=== PATIENT | female | born 1935 | race Two or more races ===

== ENCOUNTER 2020-03-06 15:01 | Inpatient (IN) | payer MEDICARE, MEDICAID ==
[~2020-03-06] VITALS: Ht 165.1 cm; Wt 68.0 kg
[2020-03-06 16:00] VITALS: BP 129/81
[2020-03-06] MEDS ORDERED: Q SORB CO Q PO (16:27)
[2020-03-06] MEDS ORDERED: CRESTOR20 MG ORAL (16:27)
[2020-03-06] MEDS ORDERED: ZESTRIL10 M1 ORAL (16:27)
[2020-03-06] MEDS ORDERED: DILTIAZEM ER180 M3 PO (16:27)
[2020-03-06] MEDS ORDERED: [UNRECOGNIZED DRUG - OTHER] PO (16:27)
[2020-03-06] MEDS ORDERED: OYSTER SHELL 51 EAC3 PO (16:27)
[2020-03-06] MEDS ORDERED: VITAMIN D325 MC1 PO (16:27)
[2020-03-06 16:45] LABS: BASOPHILS % (AUTO) 0.3 % (0.0-2.0); EOSINOPHILS % (AUTO) 0.5 % (0.0-3.0); HEMATOCRIT 41.4 % (37.0-47.0); HEMOGLOBIN 14.9 G/DL (12.0-16.0); LYMPHOCYTES % (AUTO) 18.7 % (20.0-45.0); MEAN CORPUSCULAR VOLUME 75 FL (80-99); MONOCYTES % (AUTO) 9.1 % (1.0-10.0); NEUTROPHILS % (AUTO) 71.4 % (45.0-75.0); PLATELET COUNT 374 K/UL (150-450); RED BLOOD COUNT 5.52 M/UL (4.20-5.40); RED CELL DISTRIBUTION WIDTH 14.1 % (11.6-14.8); WHITE BLOOD COUNT 9.4 K/UL (4.8-10.8)
[2020-03-06 16:47] LABS: CALCIUM 8.9 MG/DL (8.5-10.1); POTASSIUM 3.7 MMOL/L (3.5-5.1)
[2020-03-06 17:00] LABS: ALBUMIN 2.5 G/DL (3.4-5.0); ALBUMIN/GLOBULIN RATIO 0.5 (1.0-2.7); CKMB 1.2 NG/ML (0.0-3.6); PHOSPHORUS 3.2 MG/DL (2.5-4.9)
[2020-03-06] MEDS ORDERED: dexAMETHasone 10mg/ml Inj IV ONE (17:00)
--- NOTE | 2020-03-06 17:03 | Diagnostic Imaging Report ---
Indication: Shortness of breath Technique: XRAY Chest 1v Comparison: None Findings: There is interstitial infiltrates with a peripheral distribution. Heart size is in the upper limits normal. Mediastinal contours are sharp. No pleural effusion or pneumothorax. No acute osseous abnormality. Impression: Peripherally distributed interstitial infiltrates. Findings are concerning for multifocal pneumonia, particularly viral pneumonia.
[2020-03-06 17:25] LABS: APPEARANCE,URINE SLIGHTLY CLOUDY; BILIRUBIN, URINE 1+ (NEGATIVE); GLUCOSE, URINE (UA) NEGATIVE (NEGATIVE); KETONES,URINE 1+ (NEGATIVE); LEUKOCYTE ESTERASE ,URINE 1+ (NEGATIVE); NITRITE,URINE NEGATIVE (NEGATIVE); PH,URINE 7 (4.5-8.0); PROTEIN,URINE 3+ (NEGATIVE); UROBILINOGEN,URINE 4 MG/DL (0.0-1.0)
[2020-03-06 17:29] LABS: COLOR,URINE YELLOW
[2020-03-06 17:58] VITALS: BP 133/77
[2020-03-06] MEDS ORDERED: Albuterol 90mcg Inhaler 8gm INH PRN (21:30)
--- NOTE | 2020-03-06 21:35 | History & Physical ---
History of Present Illness General Reason for Hospitalization: Dyspnea/Respdistress Present Illness HPI 84 yo F with hx of dementia AOX1, HTN, who transferred to [facility] for worsenign SOB, dyspnea per chart review pt is baseline AOx2, linving at SNF. Pt desat to low 80s at outside facility, no report of fever Allergies: Coded Allergies: PENICILLINS (Verified Allergy, Unknown, 03/06/20) COVID-19 Screening Contact w/high risk pt: Yes Recent Travel to affected area: Yes Experienced COVID-19 symptoms?: Yes Coronavirus symptoms experienc: Shortness of Breath Medication History Scheduled Cholecalciferol (Vitamin D3) (Vitamin D3*), 25 MCG PO DAILY, (Reported) Lisinopril* (Zestril*), 10 MG ORAL DAILY, (Reported) Rosuvastatin Calcium* (Crestor*), 20 MG ORAL DAILY, (Reported) Miscellaneous Medications Calcium Carbonate/Vitamin D3 (Oyster Shell 500Mg-Vit D3 5Mcg), 1 EACH PO, (Reported) Diltiazem HCl (Diltiazem ER), 180 MG PO, (Reported) Ubidecarenone (Q-Sorb Co Q-10), 150 MG PO, (Reported) [Zolfen], 20 MG PO, (Reported) Patient History Healthcare decision maker Resuscitation status Advanced Directive on File Review of Systems Review of Symptoms General ROS: no weight loss or fever Psychological ROS: no depression or mood changes, no memory loss Ophthalmic ROS: no visual changes or eye irritation ENT ROS: no nasal congestion, hearing loss, dizziness Allergy and Immunology ROS: no allergic symptoms or urticaria Hematological and Lymphatic ROS: no swollen glands, unusual bleeding or bruising Endocrine ROS: no polyuria, polydipsia, weight changes, temperature intolerance Respiratory ROS: no cough, shortness of breath, or wheezing Cardiovascular ROS: no chest pain or dyspnea on exertion Gastrointestinal ROS: denies abdominal pain, bright red blood in stool. Musculoskeletal ROS: no myalgias or arthralgias Neurological ROS: no TIA or stroke symptoms Dermatological ROS: no new or changing skin lesions, rashes or pruritis Physical Exam Physical Exam General appearance: alert, cooperative, mild respiratory distress, appears stated age Head: Normocephalic, without obvious abnormality, atraumatic Eyes: conjunctivae/corneas clear. PERRL, EOM's intact. Fundi benign Throat: Lips, mucosa, and tongue normal. Teeth and gums normal Neck: supple, symmetrical, trachea midline, no adenopathy, thyroid: not enlarged, symmetric, no tenderness/mass/nodules, no carotid bruit and no JVD Lungs: clear to auscultation bilaterally Heart: regular rate and rhythm, S1, S2 normal, no murmur, click, rub or gallop Abdomen: soft, non-tender. Bowel sounds normal. No masses, no organomegaly Extremities: extremities normal, atraumatic, no cyanosis or edema Pulses: 2+ and symmetric Skin: Skin color, texture, turgor normal. No rashes or lesions Neurologic: Grossly normal Last 24 Hour Vital Signs Date Time Temp Pulse Resp B/P (MAP) Pulse Ox O2 Delivery O2 Flow Rate FiO2 03/06/20 17:58 98.6 99 18 133/77 96 Nasal Cannula 3.0 03/06/20 16:00 98.1 103 18 129/81 97 Nasal Cannula 3.0 03/06/20 16:00 103 18 Nasal Cannula 6.0 03/06/20 14:50 98.4 100 16 126/86 (99) 93 Nasal Cannula 6.0 Laboratory Tests Test 03/06/20 15:45 03/06/20 17:00 White Blood Count 9.4 K/UL (4.8-10.8) Red Blood Count 5.52 M/UL (4.20-5.40) H Hemoglobin 14.9 G/DL (12.0-16.0) Hematocrit 41.4 % (37.0-47.0) Mean Corpuscular Volume 75 FL (80-99) L Mean Corpuscular Hemoglobin 27.0 PG (27.0-31.0) Mean Corpuscular Hemoglobin Concent 36.0 G/DL (32.0-36.0) Red Cell Distribution Width 14.1 % (11.6-14.8) Platelet Count 374 K/UL (150-450) Mean Platelet Volume 6.6 FL (6.5-10.1) Neutrophils (%) (Auto) 71.4 % (45.0-75.0) Lymphocytes (%) (Auto) 18.7 % (20.0-45.0) L Monocytes (%) (Auto) 9.1 % (1.0-10.0) Eosinophils (%) (Auto) 0.5 % (0.0-3.0) Basophils (%) (Auto) 0.3 % (0.0-2.0) Prothrombin Time 11.0 SEC (9.30-11.50) Prothromb Time International Ratio 1.0 (0.9-1.1) Activated Partial Thromboplast Time 29 SEC (23-33) Sodium Level 139 MMOL/L (136-145) Potassium Level 3.7 MMOL/L (3.5-5.1) Chloride Level 108 MMOL/L (98-107) H Carbon Dioxide Level 21 MMOL/L (21-32) Anion Gap 10 mmol/L (5-15) Blood Urea Nitrogen 19 mg/dL (7-18) H Creatinine 1.0 MG/DL (0.55-1.30) Estimat Glomerular Filtration Rate 52.8 mL/min (>60) Glucose Level 120 MG/DL (74-106) H Lactic Acid Level 1.80 mmol/L (0.4-2.0) Calcium Level 8.9 MG/DL (8.5-10.1) Phosphorus Level 3.2 MG/DL (2.5-4.9) Magnesium Level 2.1 MG/DL (1.8-2.4) Total Bilirubin 1.0 MG/DL (0.2-1.0) Aspartate Amino Transf (AST/SGOT) 69 U/L (15-37) H Alanine Aminotransferase (ALT/SGPT) 48 U/L (12-78) Alkaline Phosphatase 100 U/L (46-116) Total Creatine Kinase 60 U/L (26-308) Creatine Kinase MB 1.2 NG/ML (0.0-3.6) Creatine Kinase MB Relative Index 2.0 Troponin I 0.008 ng/mL (0.000-0.056) Total Protein 7.5 G/DL (6.4-8.2) Albumin 2.5 G/DL (3.4-5.0) L Globulin 5.0 g/dL Albumin/Globulin Ratio 0.5 (1.0-2.7) L Urine Color Yellow Urine Appearance Slightly cloudy Urine pH 7 (4.5-8.0) Urine Specific [place] 1.010 (1.005-1.035) Urine Protein 3+ (NEGATIVE) H Urine Glucose (UA) Negative (NEGATIVE) Urine Ketones 1+ (NEGATIVE) H Urine Blood 2+ (NEGATIVE) H Urine Nitrite Negative (NEGATIVE) Urine Bilirubin 1+ (NEGATIVE) H Urine Ictotest Positive (NEGATIVE) Urine Urobilinogen 4 MG/DL (0.0-1.0) H Urine Leukocyte Esterase 1+ (NEGATIVE) H Urine RBC 2-4 /HPF (0 - 2) H Urine WBC 5-10 /HPF (0 - 2) H Urine Squamous Epithelial Cells Few /LPF (NONE/OCC) Urine Bacteria Few /HPF (NONE) Urine Mucus Few /LPF (NONE/OCC) H Microbiology Date/Time Source Procedure Growth Status 03/06/20 15:45 Nasopharynx SARS-CoV-2 RdRp Gene Assay - Final Complete Height (Feet): 5 Height (Inches): 5.00 Weight (Pounds): 150 Assessment/Plan Status: stable, progressing Assessment/Plan: 84 yo F with PMHx of vit D defi, dementia, SNF, who is admitted for Dyspnea 2/2 covid PNA # Acute hypoxemia Resp failure 2/2 covid pna requiring NC # Covid pna # Transaminiti - start NC therap - decadron 6mg iv q24 - zinc - procal to r/o bacterial pna - hold off abx -remdesivir - pulm jeanetteutPj fontenot appreciate recs # Dementia # SNF - stable '- home vitamin DVT lovenoox [facility] declaration X INPATIENT level of care is warranted for this patient because patient is a 89 year old with who presents with suspicion of . I have a high level of concern because . Patient is at high risk for . Plan of care/treatment include . Patient care is expected to be greater than 2 midnights. Estimated discharge date: 03/10 I spent 70 minutes on this patient's case, and 40 minutes was dedicated to counseling and/or care coordination. MIPS ([employer]-based Incentive Payment System) Applicable CPT: 80831, 06175 CHECK ALL THAT ARE MET: X Measure #5 (CHF): All ages. Prescribe CARIE/ARB upon discharge for patients with left ventricular systolic dysfunction. If not, the reason is clearly documented in the medical chart. XMeasure #8 (CHF): All ages. Prescribe a beta more upon discharge for patients with left ventricular systolic dysfunction. If not, the reason is clearly documented in the medical chart. X Measure #47 Advance care plan or surrogate decision maker documented in the medical record. X Measure #130 The provider has documented, updated, or reviewed the patients current medication list and has documented it in the patients note. X Measure #374 (All): Send report to referring provider. X Measure #407(Sepsis due to MSSA bacteremia): Age 18+ Patient treated with a beta-lactam antibiotic (Nafcillin, Oxacillin or Cefazolin) as definitive therapy. MEDICAL COMPLEXITY High complexity medical decision making (need 2/3 categories) Problem - need 4 points X Acute/new problem with new plan for workup (4 points, 1 max) Acute/new problem without additional workup (3 points, 1 max) X Unstable chronic problem actively being managed (2 point each, 2 max) XStable chronic problem actively being managed (1 point each, 2 max) Self-limited/transient process (constipation, muscle ache, etc) (1 point each, 2 max) Data - need 4 points X Reviewed labs/imaging studies (1 points, 2 max) X Independent review of imaging (EKG, xrays, etc) (2 points, 2 max) Discussed case with consult/other MD/RN (2 points, 2 max) High Risk - qualify if have one of the following: X Severe exacerbation of acute problem, acute mental status change, IV narcotics, monitoring drug levels (vancomycin, INR, tacrolimus etc) Erica Paz D.O. Mar 06, 2020 21:35
--- NOTE | 2020-03-06 22:20 | Emergency Room Report ---
History of Present Illness General Chief Complaint: Dyspnea/Respdistress Source: Patient Present Illness HPI 84-year-old female history of dementia, hypertension, hyperlipidemia presents with acute shortness of breath that has been ongoing for the past few days concern for possible Covid severity is moderate, constant history is limited due to patient's medical condition and dementia patient presents for evaluation and treatment no known aggravating alleviating factors Allergies: Coded Allergies: PENICILLINS (Verified Allergy, Unknown, 03/06/20) COVID-19 Screening Contact w/high risk pt: No Experienced COVID-19 symptoms?: Yes COVID-19 Testing performed PRINTER MACHINE: No COVID-19 Screening: Negative COVID-19 Patient History Limited by: medical condition - Demented Past Medical History: see triage record Reviewed Nursing Documentation: PMH: Agreed; PSxH: Agreed Nursing Documentation-PMH Past Medical History: No History, Except For Hx Hypertension: Yes Hx Diabetes: Yes Review of Systems All Other Systems: limited - Dementia Physical Exam Vital Signs Date Time Temp Pulse Resp B/P (MAP) Pulse Ox O2 Delivery O2 Flow Rate FiO2 03/06/20 14:50 98.4 100 16 126/86 (99) 93 Nasal Cannula 6.0 Sp02 EP Interpretation: reviewed, abnormal - Hypoxic General Appearance: alert, moderate distress Head: normocephalic, atraumatic Eyes: bilateral eye PERRL, bilateral eye EOMI ENT: uvula midline, moist mucus membranes Neck: supple, thyroid normal, supple/symm/no masses Respiratory: respiratory distress, decreased breath sounds, accessory muscle use Cardiovascular #1: normal peripheral pulses, no edema, no gallop, no murmur, tachycardia Gastrointestinal: non tender, soft, no guarding, no rebound Musculoskeletal: normal inspection Neurologic: alert, responsive Psychiatric: mood/affect normal Skin: no rash, warm/dry Procedures Critical Care Time Critical Care Time Given the critical condition in which the patient arrived, the patient was immediately assessed by myself and the nurse, and cardiac monitoring initiated due to the potential for rapid decompensation of the patient's clinical condition. During the course of the patient's stay, I spent a considerable amount of time at the bedside performing serial re-evaluations of the patient's hemodynamic and clinical status because of the recognized potential threat to life or limb in this condition. I then had a chance to review not only all of the available current laboratory and radiographic studies obtained today, but I also reviewed old records available to me at the time. Additionally, any ancillary information available including lead business systems analyst records were reviewed. Sequential vital signs were obtained. Critical Care time of 31 minutes was performed exclusive of billable procedures. Patient required oxygenation 6 L, Decadron per primary team Medical Decision Making Diagnostic Impression: Primary Impression: Respiratory distress Additional Impressions: Dyspnea Qualified Codes: R06.00 - Dyspnea, unspecified COVID-19 Hypoxia ER Course 84-year-old female multiple comorbidities, altered mental status, presents with Covid, patient given oxygen therapy with significant improvement in her symptoms Decadron per primary team Patient admitted to Dr. Oliva Laboratory Tests Test 03/06/20 15:45 03/06/20 17:00 White Blood Count 9.4 K/UL (4.8-10.8) Red Blood Count 5.52 M/UL (4.20-5.40) H Hemoglobin 14.9 G/DL (12.0-16.0) Hematocrit 41.4 % (37.0-47.0) Mean Corpuscular Volume 75 FL (80-99) L Mean Corpuscular Hemoglobin 27.0 PG (27.0-31.0) Mean Corpuscular Hemoglobin Concent 36.0 G/DL (32.0-36.0) Red Cell Distribution Width 14.1 % (11.6-14.8) Platelet Count 374 K/UL (150-450) Mean Platelet Volume 6.6 FL (6.5-10.1) Neutrophils (%) (Auto) 71.4 % (45.0-75.0) Lymphocytes (%) (Auto) 18.7 % (20.0-45.0) L Monocytes (%) (Auto) 9.1 % (1.0-10.0) Eosinophils (%) (Auto) 0.5 % (0.0-3.0) Basophils (%) (Auto) 0.3 % (0.0-2.0) Prothrombin Time 11.0 SEC (9.30-11.50) Prothrombin Time INR 1.0 (0.9-1.1) Activated Partial Thromboplast Time 29 SEC (23-33) Sodium Level 139 MMOL/L (136-145) Potassium Level 3.7 MMOL/L (3.5-5.1) Chloride Level 108 MMOL/L (98-107) H Carbon Dioxide Level 21 MMOL/L (21-32) Anion Gap 10 mmol/L (5-15) Blood Urea Nitrogen 19 mg/dL (7-18) H Creatinine 1.0 MG/DL (0.55-1.30) Estimated Glomerular Filtration Rate 52.8 mL/min (>60) Glucose Level 120 MG/DL (74-106) H Lactic Acid Level 1.80 mmol/L (0.4-2.0) Calcium Level 8.9 MG/DL (8.5-10.1) Phosphorus Level 3.2 MG/DL (2.5-4.9) Magnesium Level 2.1 MG/DL (1.8-2.4) Total Bilirubin 1.0 MG/DL (0.2-1.0) Aspartate Amino Transferase (AST) 69 U/L (15-37) H Alanine Aminotransferase (ALT) 48 U/L (12-78) Alkaline Phosphatase 100 U/L (46-116) Total Creatine Kinase 60 U/L (26-308) Creatine Kinase MB 1.2 NG/ML (0.0-3.6) Creatine Kinase MB Relative Index 2.0 Troponin I 0.008 ng/mL (0.000-0.056) Total Protein 7.5 G/DL (6.4-8.2) Albumin 2.5 G/DL (3.4-5.0) L Globulin 5.0 g/dL Albumin/Globulin Ratio 0.5 (1.0-2.7) L Urine Color Yellow Urine Appearance Slightly cloudy Urine pH 7 (4.5-8.0) Urine Specific [place] 1.010 (1.005-1.035) Urine Protein 3+ (NEGATIVE) H Urine Glucose (UA) Negative (NEGATIVE) Urine Ketones 1+ (NEGATIVE) H Urine Blood 2+ (NEGATIVE) H Urine Nitrite Negative (NEGATIVE) Urine Bilirubin 1+ (NEGATIVE) H Urine Ictotest Positive (NEGATIVE) Urine Urobilinogen 4 MG/DL (0.0-1.0) H Urine Leukocyte Esterase 1+ (NEGATIVE) H Urine RBC 2-4 /HPF (0 - 2) H Urine WBC 5-10 /HPF (0 - 2) H Urine Squamous Epithelial Cells Few /LPF (NONE/OCC) Urine Bacteria Few /HPF (NONE) Urine Mucus Few /LPF (NONE/OCC) H Microbiology Date/Time Source Procedure Growth Status 03/06/20 15:45 Nasopharynx SARS-CoV-2 RdRp Gene Assay - Final Complete EKG Diagnostic Results Troponin ordered: No EKG Time: 16:37 EP Interpretation: Sinus tachycardia, rate 102, QTc 503, no acute elevations, normal axis Rhythm Strip Diag. Results Rhythm Strip Time: 16:40 EP Interpretation: yes Rate: 101 Rhythm: no PVC's, no ectopy, other - Sinus tachycardia Chest X-Ray Diagnostic Results Chest X-Ray Diagnostic Results : Chest X-Ray Ordered: Yes # of Views/Limited/Complete: 1 View Indication: Shortness of Breath Interpretation: other - Bilateral infiltrates, consistent with Covid pneumonia Impression: Other - Bilateral infiltrates, consistent with Covid pneumonia Electronically Signed by: Rob Baron MD Last Vital Signs Date Time Temp Pulse Resp B/P (MAP) Pulse Ox O2 Delivery O2 Flow Rate FiO2 03/06/20 22:04 98.2 72 19 135/69 96 Nasal Cannula 2.0 Disposition: ADMITTED INPATIENT Condition: Critical Referrals: [facility],REFERRING (PCP) Rob Baron MD Mar 06, 2020 22:20
[2020-03-06 22:25] VITALS: BP 141/79
[2020-03-06 23:43] VITALS: BP 136/82
[2020-03-06] MEDS: Enoxaparin 40mg Inj SUBQ SCH (23:50)
[2020-03-07 08:00] VITALS: BP 121/68
[2020-03-07 09:01] VITALS: BP 121/68
[2020-03-07] MEDS ORDERED: cefTRIAXone 1 GM in D5W 55 ML IVPB SCH (11:30)
[2020-03-07] MEDS ORDERED: Albuterol 90mcg Inhaler 8gm INH PRN (11:30)
--- NOTE | 2020-03-07 11:43 | Consultation ---
History of Present Illness General Date patient seen: Mar 07, 2020 Time patient seen: 10:30 Chief Complaint: Dyspnea/Respdistress Referring physician: Dr Bonilla Reason for Consultation: resp distress, COVID PNA Present Illness HPI 84 years old female with past medical history of hypertension, hyperlipidemia, dementia, presented from home with shortness of breath. Symptoms were ongoing for the past few days. Family was concerned for possible Covid infection. Upon evaluation in emergency department pulse oximetry on 6 L of oxygen via nasal cannula was 93%. Rapid COVID-19 was positive. Laboratory work-up revealed no leukocytosis , stable hemoglobin and hematocrit. BUN 19 , creatinine 1.0 , stable electrolytes. Lactic acid 1.8. AST 69, ALT 48. Troponin negative . No inflammatory markers were obtained . Urinalysis revealed +3 protein, +1 leukocyte esterase, pyuria and few bacteria. Chest x-ray demonstrated peripherally distributed interstitial infiltrates; findings were concerning for multifocal pneumonia , particularly viral pneumonia. Pulmonology consult was requested to assist in management this patient. Allergies: Coded Allergies: PENICILLINS (Verified Allergy, Unknown, 03/06/20) Medication History Scheduled Cholecalciferol (Vitamin D3) (Vitamin D3*), 25 MCG PO DAILY, (Reported) Lisinopril* (Zestril*), 10 MG ORAL DAILY, (Reported) Rosuvastatin Calcium* (Crestor*), 20 MG ORAL DAILY, (Reported) Miscellaneous Medications Calcium Carbonate/Vitamin D3 (Oyster Shell 500Mg-Vit D3 5Mcg), 1 EACH PO, (Reported) Diltiazem HCl (Diltiazem ER), 180 MG PO, (Reported) Ubidecarenone (Q-Sorb Co Q-10), 150 MG PO, (Reported) [Zolfen], 20 MG PO, (Reported) Patient History Healthcare decision maker Resuscitation status Full code Advanced Directive on File Review of Systems ROS Narrative unable to obtain given patient's dementia Physical Exam General Appearance: WD/WN, no apparent distress, other - elderly [place] sleaking female, awake, alert and forgerful Lines, tubes and drains: peripheral HEENT: normocephalic, atraumatic, anicteric, mucous membranes moist, PERRL, other - O2 via NC Neck: non-tender Respiratory/Chest: chest wall non-tender, lungs clear - with moderate air exchange , no respiratory distress, no accessory muscle use Cardiovascular/Chest: normal peripheral pulses, normal rate Abdomen: normal bowel sounds, non tender, soft Extremities: non-tender, normal inspection, no calf tenderness, normal capillary refill Skin Exam: warm/dry Neurologic: alert, responsive, normal mood/affect Musculoskeletal: atrophy - BLE Last 24 Hour Vital Signs Date Time Temp Pulse Resp B/P (MAP) Pulse Ox O2 Delivery O2 Flow Rate FiO2 03/07/20 09:01 97.9 85 20 121/68 (85) 96 03/07/20 08:00 86 03/07/20 08:00 97.9 85 20 121/68 (85) 96 03/07/20 04:00 83 03/07/20 00:00 85 03/06/20 23:43 98.7 87 18 136/82 (100) 95 03/06/20 23:42 Nasal Cannula 3.0 03/06/20 22:25 98.2 95 19 141/79 (99) 95 03/06/20 22:04 98.2 72 19 135/69 96 Nasal Cannula 2.0 03/06/20 17:58 98.6 99 18 133/77 96 Nasal Cannula 3.0 03/06/20 16:00 98.1 103 18 129/81 97 Nasal Cannula 3.0 03/06/20 16:00 103 18 Nasal Cannula 6.0 03/06/20 14:50 98.4 100 16 126/86 (99) 93 Nasal Cannula 6.0 Intake and Output 03/06/20 03/07/20 19:00 07:00 Intake Total 120 ml Output Total 200 ml Balance -200 ml 120 ml Intake Oral 120 ml Output Urine Total 200 ml Laboratory Tests Test 03/06/20 15:45 03/06/20 17:00 03/07/20 04:00 White Blood Count 9.4 K/UL (4.8-10.8) Red Blood Count 5.52 M/UL (4.20-5.40) H Hemoglobin 14.9 G/DL (12.0-16.0) Hematocrit 41.4 % (37.0-47.0) Mean Corpuscular Volume 75 FL (80-99) L Mean Corpuscular Hemoglobin 27.0 PG (27.0-31.0) Mean Corpuscular Hemoglobin Concent 36.0 G/DL (32.0-36.0) Red Cell Distribution Width 14.1 % (11.6-14.8) Platelet Count 374 K/UL (150-450) Mean Platelet Volume 6.6 FL (6.5-10.1) Neutrophils (%) (Auto) 71.4 % (45.0-75.0) Lymphocytes (%) (Auto) 18.7 % (20.0-45.0) L Monocytes (%) (Auto) 9.1 % (1.0-10.0) Eosinophils (%) (Auto) 0.5 % (0.0-3.0) Basophils (%) (Auto) 0.3 % (0.0-2.0) Prothrombin Time 11.0 SEC (9.30-11.50) Prothromb Time International Ratio 1.0 (0.9-1.1) Activated Partial Thromboplast Time 29 SEC (23-33) Sodium Level 139 MMOL/L (136-145) Potassium Level 3.7 MMOL/L (3.5-5.1) Chloride Level 108 MMOL/L (98-107) H Carbon Dioxide Level 21 MMOL/L (21-32) Anion Gap 10 mmol/L (5-15) Blood Urea Nitrogen 19 mg/dL (7-18) H Creatinine 1.0 MG/DL (0.55-1.30) Estimat Glomerular Filtration Rate 52.8 mL/min (>60) Glucose Level 120 MG/DL (74-106) H Lactic Acid Level 1.80 mmol/L (0.4-2.0) Calcium Level 8.9 MG/DL (8.5-10.1) Phosphorus Level 3.2 MG/DL (2.5-4.9) Magnesium Level 2.1 MG/DL (1.8-2.4) Total Bilirubin 1.0 MG/DL (0.2-1.0) Aspartate Amino Transf (AST/SGOT) 69 U/L (15-37) H Alanine Aminotransferase (ALT/SGPT) 48 U/L (12-78) Alkaline Phosphatase 100 U/L (46-116) Total Creatine Kinase 60 U/L (26-308) Creatine Kinase MB 1.2 NG/ML (0.0-3.6) Creatine Kinase MB Relative Index 2.0 Troponin I 0.008 ng/mL (0.000-0.056) Total Protein 7.5 G/DL (6.4-8.2) Albumin 2.5 G/DL (3.4-5.0) L Globulin 5.0 g/dL Albumin/Globulin Ratio 0.5 (1.0-2.7) L Urine Color Yellow Urine Appearance Slightly cloudy Urine pH 7 (4.5-8.0) Urine Specific [place] 1.010 (1.005-1.035) Urine Protein 3+ (NEGATIVE) H Urine Glucose (UA) Negative (NEGATIVE) Urine Ketones 1+ (NEGATIVE) H Urine Blood 2+ (NEGATIVE) H Urine Nitrite Negative (NEGATIVE) Urine Bilirubin 1+ (NEGATIVE) H Urine Ictotest Positive (NEGATIVE) Urine Urobilinogen 4 MG/DL (0.0-1.0) H Urine Leukocyte Esterase 1+ (NEGATIVE) H Urine RBC 2-4 /HPF (0 - 2) H Urine WBC 5-10 /HPF (0 - 2) H Urine Squamous Epithelial Cells Few /LPF (NONE/OCC) Urine Bacteria Few /HPF (NONE) Urine Mucus Few /LPF (NONE/OCC) H Thyroid Stimulating Hormone (TSH) 0.198 uiU/mL (0.358-3.740) Microbiology Date/Time Source Procedure Growth Status 03/06/20 15:45 Nasopharynx SARS-CoV-2 RdRp Gene Assay - Final Complete Height (Feet): 5 Height (Inches): 5.00 Weight (Pounds): 150 Medications Current Medications Medications (Trade) Dose Ordered Sig/Ra Route PRN Reason Start Time Stop Time Status Last Admin Dose Admin Acetaminophen (Tylenol) 650 mg Q4H PRN ORAL Mild Pain (Pain Scale 1-3) 03/06/20 21:30 04/05/20 21:29 Albuterol Sulfate (Proventil MDI) 2 puff Q4H PRN INH Shortness of Breath 03/06/20 21:30 06/04/20 21:29 Dexamethasone Sodium Phosphate (Decadron 4mg/ml vial) 6 mg DAILY IVP 03/08/20 09:00 03/16/20 12:00 Dextrose (Dextrose 50%) 25 ml Q30M PRN IV Hypoglycemia 03/06/20 21:30 06/04/20 21:29 Dextrose (Dextrose 50%) 50 ml Q30M PRN IV Hypoglycemia 03/06/20 21:30 06/04/20 21:29 Diphenhydramine HCl (Benadryl) 25 mg Q6H PRN ORAL Itching/Pruritis 03/06/20 21:30 04/05/20 21:29 Enoxaparin Sodium (Lovenox) 40 mg QHS SUBQ 03/06/20 22:30 06/04/20 22:29 03/06/20 23:50 Ondansetron HCl (Zofran) 4 mg Q6H PRN IVP Nausea & Vomiting 03/06/20 21:30 04/05/20 21:29 Assessment/Plan Assessment/Plan: ASSESSMENT COVID 19 PNA Acute hypoxemic respiratory failure due to COVID 19 PNA Possible UTI Hx of HTN Dementia PLAN OF CARE tele isolation O2 titrate to keep sat > 92% Albuterol MRI prn check inflammatory markers to access risk for cytokine storm and fup started on steroids will add empiric abx fup with imaging hold Remdesivivr for now a/c with Lovenox ( PPX dose) fup with UCX monitor BP, hold on anti HTN fro now supportive care case discussed and evaluated by supervising physician Luly Koo NP Mar 07, 2020 11:43
[2020-03-07 12:00] VITALS: BP 109/68
--- NOTE | 2020-03-07 13:08 | General Progress Note ---
Subjective Date patient seen: Mar 07, 2020 Allergies: Coded Allergies: PENICILLINS (Verified Allergy, Unknown, 03/06/20) Subjective Patient seen at bedside; no acute issues. Resting w/ NC in place. Calm. Objective Last 24 Hour Vital Signs Date Time Temp Pulse Resp B/P (MAP) Pulse Ox O2 Delivery O2 Flow Rate FiO2 03/07/20 12:00 97.7 85 20 109/68 (82) 92 03/07/20 12:00 85 03/07/20 09:01 97.9 85 20 121/68 (85) 96 03/07/20 09:00 Nasal Cannula 3.0 03/07/20 08:00 86 03/07/20 08:00 97.9 85 20 121/68 (85) 96 03/07/20 04:00 83 03/07/20 00:00 85 03/06/20 23:43 98.7 87 18 136/82 (100) 95 03/06/20 23:42 Nasal Cannula 3.0 03/06/20 22:25 98.2 95 19 141/79 (99) 95 03/06/20 22:04 98.2 72 19 135/69 96 Nasal Cannula 2.0 03/06/20 17:58 98.6 99 18 133/77 96 Nasal Cannula 3.0 03/06/20 16:00 98.1 103 18 129/81 97 Nasal Cannula 3.0 03/06/20 16:00 103 18 Nasal Cannula 6.0 03/06/20 14:50 98.4 100 16 126/86 (99) 93 Nasal Cannula 6.0 Intake and Output 03/06/20 03/07/20 19:00 07:00 Intake Total 120 ml Output Total 200 ml Balance -200 ml 120 ml Intake Oral 120 ml Output Urine Total 200 ml Laboratory Tests 03/06/20 15:45: White Blood Count 9.4, Red Blood Count 5.52H, Hemoglobin 14.9, Hematocrit 41.4, Mean Corpuscular Volume 75L, Mean Corpuscular Hemoglobin 27.0, Mean Corpuscular Hemoglobin Concent 36.0, Red Cell Distribution Width 14.1, Platelet Count 374, Mean Platelet Volume 6.6, Neutrophils (%) (Auto) 71.4, Lymphocytes (%) (Auto) 18.7L, Monocytes (%) (Auto) 9.1, Eosinophils (%) (Auto) 0.5, Basophils (%) (Auto) 0.3, Prothrombin Time 11.0, Prothromb Time International Ratio 1.0, Activated Partial Thromboplast Time 29, Sodium Level 139, Potassium Level 3.7, Chloride Level 108H, Carbon Dioxide Level 21, Anion Gap 10, Blood Urea Nitrogen 19H, Creatinine 1.0, Estimat Glomerular Filtration Rate 52.8, Glucose Level 120H , Lactic Acid Level 1.80, Calcium Level 8.9, Phosphorus Level 3.2, Magnesium Level 2.1, Total Bilirubin 1.0, Aspartate Amino Transf (AST/SGOT) 69H, Alanine Aminotransferase (ALT/SGPT) 48, Alkaline Phosphatase 100, Total Creatine Kinase 60, Creatine Kinase MB 1.2, Creatine Kinase MB Relative Index 2.0, Troponin I 0.008, Total Protein 7.5, Albumin 2.5L, Globulin 5.0, Albumin/Globulin Ratio 0.5L 03/06/20 17:00: Urine Color Yellow, Urine Appearance Slightly cloudy, Urine pH 7, Urine Specific [place] 1.010, Urine Protein 3+H, Urine Glucose (UA) Negative, Urine Ketones 1+H , Urine Blood 2+H, Urine Nitrite Negative, Urine Bilirubin 1+H, Urine Ictotest Positive, Urine Urobilinogen 4H, Urine Leukocyte Esterase 1+H, Urine RBC 2-4H, Urine WBC 5-10H, Urine Squamous Epithelial Cells Few, Urine Bacteria Few, Urine Mucus FewH 03/07/20 04:00: Ferritin 815H, Lactate Dehydrogenase 378H, C-Reactive Protein, Quantitative 1 7.9H, Thyroid Stimulating Hormone (TSH) 0.198L Height (Feet): 5 Height (Inches): 5.00 Weight (Pounds): 150 General Appearance: WD/WN, no apparent distress EENT: PERRL/EOMI Cardiovascular: normal rate, regular rhythm Respiratory/Chest: normal breath sounds, no respiratory distress, other - on supplemental 02 Abdomen: soft Extremities: normal range of motion Neurologic: mill hand plate mill II-XII grossly normal, other - Demented at baseline Assessment/Plan Status: stable, progressing Assessment/Plan: 87 yo F w/ COVID PNA and Dementia: Assessment/Plan # Acute Hypoxemic Resp Failure 2/2 COVID # Covid PNA w/ Associated Inflammation/GI symptoms/Elevated Liver Enzymes Appreciate Pulm-Dr. Oliva Consult to ID, Dr. Armando Decadron 6mg IV q10 days Continue AB w/ Aztreonam and Doxy per Pulm Briggs Cx Pending Trend Inflammatory markers Q3 Days 02 Support; If Requires more than NC will get ABG CLD for now # Dementia Monitor for acute agitation w/ COVID Can consider Seroquel if needed for agitation Review and resume SNF meds as appropriate DVT/GI ppx Baylee Chairez D.O. Mar 07, 2020 13:08
[2020-03-07] MEDS: Aztreonam Inj 1 GM in D5W 55 ML IVPB SCH ×2 (14:52→21:10)
[2020-03-07 16:00] VITALS: BP 130/93
[2020-03-07] MEDS ORDERED: SENNA8.6 M2 PO (16:31)
[2020-03-07] MEDS ORDERED: ARICEPT10 MG ORAL (16:31)
[2020-03-07] MEDS ORDERED: CO Q10100 MG PO (16:31)
[2020-03-07] MEDS ORDERED: ROBITUSSIN COU237 M2 PO (16:31)
--- NOTE | 2020-03-07 19:59 | Infectious Diseases Prog Note ---
Assessment/Plan Assessment/Plan Full consult dictated: A) 1) covid-19 virus infection with pna, hypoxia, ? CAP, ? uti 2) pmh noted 3) allergies - pcn P) 1) dexamethasone and remdesivir 2) aztreonam and doxycycline 3) monitor chest x-ray, labs, inflammatory markers 4) monitor hypoxia 5) thank you Subjective Allergies: Coded Allergies: PENICILLINS (Verified Allergy, Unknown, 03/06/20) Objective Last 24 Hour Vital Signs Date Time Temp Pulse Resp B/P (MAP) Pulse Ox O2 Delivery O2 Flow Rate FiO2 03/07/20 16:00 97.5 90 20 130/93 (105) 92 03/07/20 16:00 88 03/07/20 12:00 97.7 85 20 109/68 (82) 92 03/07/20 12:00 85 03/07/20 09:01 97.9 85 20 121/68 (85) 96 03/07/20 09:00 Nasal Cannula 3.0 03/07/20 08:00 86 03/07/20 08:00 97.9 85 20 121/68 (85) 96 03/07/20 04:00 83 03/07/20 00:00 85 03/06/20 23:43 98.7 87 18 136/82 (100) 95 03/06/20 23:42 Nasal Cannula 3.0 03/06/20 22:25 98.2 95 19 141/79 (99) 95 03/06/20 22:04 98.2 72 19 135/69 96 Nasal Cannula 2.0 Height (Feet): 5 Height (Inches): 5.00 Weight (Pounds): 150 Microbiology Date/Time Source Procedure Growth Status 03/06/20 15:45 Nasopharynx SARS-CoV-2 RdRp Gene Assay - Final Complete Laboratory Tests Test 03/07/20 04:00 03/07/20 13:15 Ferritin 815 NG/ML (8-388) H Lactate Dehydrogenase 378 U/L (81-234) H C-Reactive Protein, Quantitative 17.9 mg/dL (0.00-0.90) H Thyroid Stimulating Hormone (TSH) 0.198 uiU/mL (0.358-3.740) D-Dimer 1.56 mg/L FEU (0.00-0.49) H Current Medications Medications (Trade) Dose Ordered Sig/Ra Route PRN Reason Start Time Stop Time Status Last Admin Dose Admin Acetaminophen (Tylenol) 650 mg Q4H PRN ORAL Mild Pain (Pain Scale 1-3) 03/06/20 21:30 04/05/20 21:29 Albuterol Sulfate (Proventil MDI) 2 puff Q4H PRN INH Shortness of Breath 03/06/20 21:30 06/04/20 21:29 Aztreonam 1 gm/ Dextrose 55 ml @ 110 mls/hr Q8HR IVPB 03/07/20 14:00 03/14/20 13:59 03/07/20 14:52 Dexamethasone Sodium Phosphate (Decadron 4mg/ml vial) 6 mg DAILY IVP 03/08/20 09:00 03/16/20 12:00 Dextrose (Dextrose 50%) 25 ml Q30M PRN IV Hypoglycemia 03/06/20 21:30 06/04/20 21:29 Dextrose (Dextrose 50%) 50 ml Q30M PRN IV Hypoglycemia 03/06/20 21:30 06/04/20 21:29 Diphenhydramine HCl (Benadryl) 25 mg Q6H PRN ORAL Itching/Pruritis 03/06/20 21:30 04/05/20 21:29 Doxycycline Hyclate 100 mg/ Dextrose 110 ml @ 110 mls/hr Q12HR IV 03/07/20 21:00 03/14/20 20:59 Enoxaparin Sodium (Lovenox) 40 mg QHS SUBQ 03/06/20 22:30 06/04/20 22:29 03/06/20 23:50 Ondansetron HCl (Zofran) 4 mg Q6H PRN IVP Nausea & Vomiting 03/06/20 21:30 04/05/20 21:29 Jigna Weston MD Mar 07, 2020 19:59
[2020-03-07 20:00] VITALS: BP 137/78
[2020-03-07] MEDS ORDERED: Doxycycline Hyclate 100 MG in D5W 110 ML IV SCH (21:00)
[2020-03-07] MEDS: Doxycycline Hyclate 100 MG in D5W 110 ML IV SCH (21:08)
[2020-03-07] MEDS: Donepezil 10mg tab ORAL SCH (21:09)
[2020-03-07] MEDS: Atorvastatin 20mg tab ORAL SCH (21:09)
[2020-03-07] MEDS: Enoxaparin 40mg Inj SUBQ SCH (21:12)
[2020-03-07] MEDS ORDERED: Loading Dose:Remdesivir 200mg/NS 210ml IV SCH ×2 (21:30)
[2020-03-07] MEDS ORDERED: Vancomycin 1.25gm Premix q24h IVPB SCH (22:00)
--- NOTE | 2020-03-07 22:12 | Neurology Progress Note ---
Interim History Interim History Interim History 4 yo F with hx of dementia AOX1, HTN, who [facility] for worsenign SOB, dyspnea per chart review pt is baseline AOx2, linving at SNF with covid confused somnolent no agitation Objective Physical Exam Last Vital Signs Date Time Temp Pulse Resp B/P (MAP) Pulse Ox O2 Delivery O2 Flow Rate FiO2 03/07/20 16:00 97.5 90 20 130/93 (105) 92 03/07/20 09:00 Nasal Cannula 3.0 Laboratory Tests Test 03/07/20 04:00 03/07/20 13:15 Ferritin 815 NG/ML (8-388) H Lactate Dehydrogenase 378 U/L (81-234) H C-Reactive Protein, Quantitative 17.9 mg/dL (0.00-0.90) H Thyroid Stimulating Hormone (TSH) 0.198 uiU/mL (0.358-3.740) D-Dimer 1.56 mg/L FEU (0.00-0.49) H Head: normocophalic Neck: no rigidity EENT: benign Neurologic Exam Objective somnolent, open eyes moves all 4 nc at abd soft Impression/Recommendations Problems: (1) Hypoxia (2) COVID-19 (3) Dyspnea (4) Respiratory distress (5) Altered mental status Status: stable, progressing Diagnostic Impression acute encephalopathy 2/2 covid dementia covid 19 delirium precautions for now covid support pt as able Rob Pascual MD Mar 07, 2020 22:12
--- NOTE | 2020-03-07 22:15 | Consultation ---
DATE OF CONSULTATION: 03/07/2020 INFECTIOUS DISEASE CONSULTATION CONSULTING PHYSICIAN: Jigna Weston M.D. ATTENDING PHYSICIAN: Joni Bonilla M.D. and Janes Oliva M.D. REFERRING PHYSICIAN: Baylee Chairez D.O. REASON FOR CONSULTATION: COVID-19 infection with hypoxia and pneumonia. CHIEF COMPLAINT: The patient's chief complaint coming into the hospital is COVID pneumonia with hypoxia. HISTORY OF PRESENT ILLNESS: This is a very pleasant 84-year-old female who comes into [facility] with hypoxia. The patient had COVID testing, which is positive. The patient has pneumonia on chest x-ray. The patient required 6 liters, now 3 liters. The patient currently on dexamethasone, aztreonam, and doxycycline. Questionable UTI and complicated UTI. The patient had altered mental status, was very alert at this time. Infectious Disease consultation was requested. Because of the hypoxia on low flow, I will add remdesivir, verified and authorized by pharmacy, which I discussed the case with. REVIEW OF SYSTEMS: The patient has no fevers or chills.HEAD AND NECK: No head pain, neck pain. CARDIAC: No chest pain. GASTROINTESTINAL: She has some GI symptoms. : No Claros. PULMONARY: She has some mild shortness of breath. SKIN: No rash. NEUROLOGIC: No seizures, but she has shortness of breath that was the main issue. She has generalized fatigue. No focal weakness. PAST MEDICAL HISTORY: The patient has a past medical history of following. The patient has a past medical history of hypertension, dementia, and possible dyslipidemia. ALLERGIES: Include penicillin. SOCIAL HISTORY: Negative for smoking, alcohol, or drug abuse. FAMILY HISTORY: Noncontributory. MEDICATIONS: Upon reviewing the MAR, the patient is on the following medications. She is on dexamethasone, doxycycline, aztreonam, enoxaparin, diphenhydramine, Zofran, and acetaminophen. Outside medications noted and reconciliated. PHYSICAL EXAMINATION: VITAL SIGNS: Temperature is 97.5, pulse rate 90, respiratory rate 20, blood pressure 130/93, saturation 92% on 3 liters. She was on 6 liters. Saturations initially were quite low in the 80s per the records. I am not sure of this. GENERAL: Alert and responsive, in no acute distress. Mild shortness of breath. HEAD AND NECK: Oral exam, no thrush. Eye exam, no icterus. Neck is supple. No JVD. No icterus or thrush. HEART: No gallop or murmur. ABDOMEN: Soft. Positive bowel sounds. Nontender. LUNGS: Few bilateral rhonchi and rales. SKIN: No rash. MUSCULOSKELETAL: No effusions. Legs are without cellulitis. PERIPHERAL VASCULAR: No cyanosis or gangrene. GENITOURINARY: No Claros. LINES: Line sites without phlebitis. NEUROLOGIC: Alert, responsive. Nonfocal. LABORATORY AND DIAGNOSTIC DATA: Creatinine 1.0. LFTs were unremarkable. AST is 69, but otherwise ALT was normal. White count 9.4, hemoglobin 14.9. UA had 5 to 10 white cells. Chest x-ray showed interstitial infiltrates bilaterally concerning for multifocal pneumonia. COVID nasopharyngeal molecular testing was positive. ASSESSMENT AND PLAN: 1. The patient has COVID-19 infection with pneumonia, hypoxia, possible community-acquired pneumonia, possible urinary tract infection, altered mental status, complicated UTI. At this time, I agree with dexamethasone. The patient is currently also on aztreonam and doxycycline for community-acquired pneumonia. Doxycycline will cover Streptococcus pneumoniae and Gram-negative coverage with aztreonam. With regards to remdesivir, the patient is a candidate, however, we will have to get authorization from pharmacy, but we will consider remdesivir in this patient with low-flow oxygen O2 requirement. Continue doxycycline, dexamethasone, and aztreonam and again consider remdesivir for COVID-19 infection with pneumonia, possible community-acquired pneumonia and also possible UTI. Monitor hypoxia, chest x-ray, and labs. CRP is elevated at currently as high as 17.9. 2. Hypertension. 3. Blood pressure treatment per primary care team. 4. Dementia. 5. Questionable dyslipidemia. 6. Allergies to penicillin. 7. Social history is negative. 8. Family history is noncontributory. 9. MAR was noted. 10. Case was discussed with RN. Jigna Weston M.D. DR: ROHIT JOB#: [id number] CC: RUDY
[2020-03-08] VITALS: BP 131/72
[2020-03-08 04:00] VITALS: BP 141/63
[2020-03-08] MEDS: Aztreonam Inj 1 GM in D5W 55 ML IVPB SCH ×3 (05:33→22:36)
[2020-03-08 08:00] VITALS: BP 130/72
[2020-03-08] MEDS: dilTIAZem HCl ER 180mg cap ORAL SCH (09:32)
[2020-03-08] MEDS: Lisinopril 10mg tab ORAL SCH (09:32)
[2020-03-08] MEDS: Doxycycline Hyclate 100 MG in D5W 110 ML IV SCH ×2 (09:33→20:07)
[2020-03-08 09:38] LABS: BASOPHILS % (AUTO) 0.6 % (0.0-2.0); EOSINOPHILS % (AUTO) 0.1 % (0.0-3.0); HEMATOCRIT 38.9 % (37.0-47.0); HEMOGLOBIN 13.9 G/DL (12.0-16.0); LYMPHOCYTES % (AUTO) 16.8 % (20.0-45.0); MEAN CORPUSCULAR VOLUME 77 FL (80-99); MONOCYTES % (AUTO) 13.4 % (1.0-10.0); NEUTROPHILS % (AUTO) 69.1 % (45.0-75.0); PLATELET COUNT 480 K/UL (150-450); RED BLOOD COUNT 5.04 M/UL (4.20-5.40); RED CELL DISTRIBUTION WIDTH 14.8 % (11.6-14.8); WHITE BLOOD COUNT 10.2 K/UL (4.8-10.8)
[2020-03-08 10:02] LABS: CALCIUM 8.9 MG/DL (8.5-10.1); CREATININE 0.9 MG/DL (0.55-1.30); POTASSIUM 3.8 MMOL/L (3.5-5.1)
[2020-03-08 10:10] LABS: ALANINE AMINOTRANSFERASE 40 U/L (12-78); ALBUMIN 2.3 G/DL (3.4-5.0); ALKALINE PHOSPHATASE 87 U/L (46-116); ASPARTATE AMINO TRANSFERASE 48 U/L (15-37); BILIRUBIN,DIRECT 0.4 MG/DL (0.0-0.3); BILIRUBIN,TOTAL 0.6 MG/DL (0.2-1.0); PHOSPHORUS 3.1 MG/DL (2.5-4.9)
--- NOTE | 2020-03-08 10:36 | Pulmonology Progress Note ---
Subjective Allergies: Coded Allergies: PENICILLINS (Verified Allergy, Unknown, 03/06/20) Subjective on 3 L o2 via NC, no resp distress no CP no fevers, no leukocytosis Objective Last 24 Hour Vital Signs Date Time Temp Pulse Resp B/P (MAP) Pulse Ox O2 Delivery O2 Flow Rate FiO2 03/08/20 09:32 130/72 03/08/20 09:32 81 130/72 03/08/20 04:00 97.7 80 20 141/63 (89) 96 03/08/20 04:00 73 03/08/20 00:00 97.8 77 20 131/72 (91) 93 03/08/20 00:00 76 03/07/20 21:00 Nasal Cannula 3.0 03/07/20 20:00 97.7 92 20 137/78 (97) 92 03/07/20 20:00 90 03/07/20 16:00 97.5 90 20 130/93 (105) 92 03/07/20 16:00 88 03/07/20 12:00 97.7 85 20 109/68 (82) 92 03/07/20 12:00 85 Intake and Output 03/07/20 03/08/20 19:00 07:00 # Voids 2 2 # Bowel Movements 1 Objective General Appearance: WD/WN, no apparent distress, elderly Indonesian sleaking female, awake, alert and forgetful Lines, tubes and drains: peripheral HEENT: normocephalic, atraumatic, anicteric, mucous membranes moist, PERRL, other - O2 via NC Neck: non-tender Respiratory/Chest: chest wall non-tender, lungs clear - with moderate air exchange , no respiratory distress, no accessory muscle use Cardiovascular/Chest: normal peripheral pulses, normal rate Abdomen: normal bowel sounds, non tender, soft Extremities: non-tender, normal inspection, no calf tenderness, normal capillary refill Skin Exam: warm/dry Neurologic: alert, responsive, normal mood/affect Musculoskeletal: atrophy - BLE Microbiology Date/Time Source Procedure Growth Status 03/06/20 15:45 Nasopharynx SARS-CoV-2 RdRp Gene Assay - Final Complete 03/06/20 15:45 Blood Blood Culture - Preliminary Resulted 03/06/20 15:30 Blood Blood Culture - Preliminary Resulted Laboratory Tests 03/07/20 13:15: D-Dimer 1.56H 03/08/20 09:10: White Blood Count 10.2, Red Blood Count 5.04, Hemoglobin 13.9, Hematocrit 38.9, Mean Corpuscular Volume 77L, Mean Corpuscular Hemoglobin 27.6, Mean Corpuscular Hemoglobin Concent 35.7, Red Cell Distribution Width 14.8, Platelet Count 480H, Mean Platelet Volume 6.3L, Neutrophils (%) (Auto) 69.1, Lymphocytes (%) (Auto) 16.8L, Monocytes (%) (Auto) 13.4H, Eosinophils (%) (Auto) 0.1, Basophils (%) (Auto) 0.6, Sodium Level 142, Potassium Level 3.8, Chloride Level 112H, Carbon Dioxide Level 20L, Anion Gap 10, Blood Urea Nitrogen 28H, Creatinine 0.9, Estimat Glomerular Filtration Rate 59.7, Glucose Level 106, Calcium Level 8.9, Phosphorus Level 3.1, Magnesium Level 2.1, Total Bilirubin 0.6, Direct Bilirubin 0.4H, Aspartate Amino Transf (AST/SGOT) 48H, Alanine Aminotransferase (ALT/SGPT) 40, Alkaline Phosphatase 87, Total Protein 6.4, Albumin 2.3L Current Medications Medications (Trade) Dose Ordered Sig/Ra Route PRN Reason Start Time Stop Time Status Last Admin Dose Admin Acetaminophen (Tylenol) 650 mg Q4H PRN ORAL Mild Pain (Pain Scale 1-3) 03/06/20 21:30 04/05/20 21:29 Albuterol Sulfate (Proventil MDI) 2 puff Q4H PRN INH Shortness of Breath 03/06/20 21:30 06/04/20 21:29 Atorvastatin Calcium (Lipitor) 40 mg BEDTIME ORAL 03/07/20 21:00 06/05/20 20:59 03/07/20 21:09 Aztreonam 1 gm/ Dextrose 55 ml @ 110 mls/hr Q8HR IVPB 03/07/20 14:00 03/14/20 13:59 03/08/20 05:33 Dexamethasone Sodium Phosphate (Decadron 4mg/ml vial) 6 mg DAILY IVP 03/08/20 09:00 03/16/20 12:00 03/08/20 09:33 Dextrose (Dextrose 50%) 25 ml Q30M PRN IV Hypoglycemia 03/06/20 21:30 06/04/20 21:29 Dextrose (Dextrose 50%) 50 ml Q30M PRN IV Hypoglycemia 03/06/20 21:30 06/04/20 21:29 Diltiazem HCl (Cardizem ER) 180 mg DAILY ORAL 03/08/20 09:00 04/07/20 08:59 03/08/20 09:32 Diphenhydramine HCl (Benadryl) 25 mg Q6H PRN ORAL Itching/Pruritis 03/06/20 21:30 04/05/20 21:29 Donepezil HCl (Aricept) 10 mg QHS ORAL 03/07/20 21:00 04/06/20 20:59 03/07/20 21:09 Doxycycline Hyclate 100 mg/ Dextrose 110 ml @ 110 mls/hr Q12HR IV 03/07/20 21:00 03/14/20 20:59 03/08/20 09:33 Enoxaparin Sodium (Lovenox) 40 mg QHS SUBQ 03/06/20 22:30 06/04/20 22:29 03/07/20 21:12 Lisinopril (ZestriL) 10 mg DAILY ORAL 03/08/20 09:00 04/07/20 08:59 03/08/20 09:32 Ondansetron HCl (Zofran) 4 mg Q6H PRN IVP Nausea & Vomiting 03/06/20 21:30 04/05/20 21:29 Remdesivir 100 mg/ Sodium Chloride 250 ml @ 250 mls/hr Q24H IV 03/08/20 21:00 03/11/20 21:59 Vancomycin HCl (Vanco pharmacy to dose) 1 ea DAILY PRN MISC Per rx protocol 03/07/20 20:45 04/06/20 20:44 Vancomycin HCl 1 gm/Dextrose 275 ml @ 183.708 mls/hr Q24H IVPB 03/08/20 22:00 03/13/20 21:59 Assessment/Plan Assessment/Plan ASSESSMENT COVID 19 PNA Acute hypoxemic respiratory failure due to COVID 19 PNA Gram positive bacteremia Possible UTI Hx of HTN Dementia PLAN OF CARE tele isolation O2 titrate to keep sat > 92% Albuterol MRI prn inflammatory markers elevated -LDH 378, D dimer 1.56, CRP 17.9, ferritin 815, fup started on steroids and Remdesivivr empiric abx Doxy and Aztreonam BCX 03/06 + GPC in clusters Vanco added as per ID fup with final BCX results CXR in am a/c with Lovenox ( PPX dose) monitor BP, hold on anti HTN for now supportive care case discussed and evaluated by supervising physician Luly Koo NP Mar 08, 2020 10:36
[2020-03-08 12:00] VITALS: BP 133/86
[2020-03-08 16:00] VITALS: BP 122/66
--- NOTE | 2020-03-08 17:35 | General Progress Note ---
Subjective Date patient seen: Mar 08, 2020 Allergies: Coded Allergies: PENICILLINS (Verified Allergy, Unknown, 03/06/20) Subjective Chart reviewed. Patient admitted for Covid pneumonia and possible UTI. On and off oxygen still. 2 to 3 L. Found to be bacteremic with gram-positive cocci in clusters. On vancomycin. Review of systems: Constitutional: Denies: chills, diaphoresis, fever, malaise, weakness, HEENT: Denies: eye pain, blurred vision, double vision, ear pain, nose pain, throat pain, Cardiovascular: Denies: chest pain, edema, lightheadedness, palpitations Respiratory: Denies: cough, orthopnea, shortness of breath, SOB with excertion, SOB at rest, Gastrointestinal/Abdominal: Denies: abdominal pain, black stools, blood in stool, constipation, diarrhea, nausea, poor fluid intake vomiting, other Genitourinary: Denies: burning, discharge, frequency, Neurologic/Psychiatric: Denies: headache, numbness, paresthesia, new weakness, other Endocrine: Denies: excessive sweating, flushing, intolerance to cold, MSK: denies joint pains, swelling, stiffness Hematologic/Lymphatic: Denies: anemia, easy bleeding, easy bruising, Psych: no anxiety, depression, SI or HI Objective Last 24 Hour Vital Signs Date Time Temp Pulse Resp B/P (MAP) Pulse Ox O2 Delivery O2 Flow Rate FiO2 03/08/20 16:00 98.2 81 20 122/66 (84) 95 03/08/20 12:00 82 03/08/20 12:00 97.6 85 20 133/86 (102) 96 03/08/20 09:32 130/72 03/08/20 09:32 81 130/72 03/08/20 09:00 Nasal Cannula 3.0 03/08/20 08:00 70 03/08/20 08:00 97.8 81 20 130/72 (91) 94 03/08/20 04:00 97.7 80 20 141/63 (89) 96 03/08/20 04:00 73 03/08/20 00:00 97.8 77 20 131/72 (91) 93 03/08/20 00:00 76 03/07/20 21:00 Nasal Cannula 3.0 03/07/20 20:00 97.7 92 20 137/78 (97) 92 03/07/20 20:00 90 Intake and Output 03/07/20 03/08/20 19:00 07:00 # Voids 2 2 # Bowel Movements 1 Laboratory Tests 03/08/20 09:10: White Blood Count 10.2, Red Blood Count 5.04, Hemoglobin 13.9, Hematocrit 38.9, Mean Corpuscular Volume 77L, Mean Corpuscular Hemoglobin 27.6, Mean Corpuscular Hemoglobin Concent 35.7, Red Cell Distribution Width 14.8, Platelet Count 480H, Mean Platelet Volume 6.3L, Neutrophils (%) (Auto) 69.1, Lymphocytes (%) (Auto) 16.8L, Monocytes (%) (Auto) 13.4H, Eosinophils (%) (Auto) 0.1, Basophils (%) (Au to) 0.6, Sodium Level 142, Potassium Level 3.8, Chloride Level 112H, Carbon Dioxide Level 20L, Anion Gap 10, Blood Urea Nitrogen 28H, Creatinine 0.9, Estimat Glomerular Filtration Rate 59.7, Glucose Level 106, Calcium Level 8.9, Phosphorus Level 3.1, Magnesium Level 2.1, Total Bilirubin 0.6, Direct Bilirubin 0.4H, Aspartate Amino Transf (AST/SGOT) 48H, Alanine Aminotransferase (ALT/SGPT) 40, Alkaline Phosphatase 87, Total Protein 6.4, Albumin 2.3L Height (Feet): 5 Height (Inches): 5.00 Weight (Pounds): 150 Objective General: WDWN male in NAD, A&O x 4 HEENT: Normocephalic cephalic atraumatic, pupils equal round reactive to light and accommodation, nares patent and no symmetrical, no tonsillar exudates, mucous membranes moist CV: Regular rate regular rhythm, no murmurs, rubs, or gallops Pulm: Lungs clear to auscultation bilaterally. No wheezes, rhonchi, or rales GI: Soft, nontender, nondistended, bowel sounds present Neuro: CN 2-12 intact bilaterally, no focal signs. Ext: No lower extremity edema bilaterally Skin: no rashes lesions or ulcers Msk: Joints symmetrical in upper extremity and lower extremity bilaterally, no joint swelling. Lymph: No lymphadenopathy in upper extremity and lower extremity Assessment/Plan Status: stable, progressing Assessment/Plan: 87 yo F w/ COVID PNA and Dementia: Assessment/Plan # Acute Hypoxemic Resp Failure 2/2 COVID - improving # Covid PNA w/ Associated Inflammation/GI symptoms/ #Elevated Liver Enzymes -Appreciate Pulm-Dr. Oliva -Consult to ID, Dr. Armando -Decadron 6mg IV q10 days -Continue AB w/ Aztreonam and Doxy per Pulm -Briggs Cx Pending -Trend Inflammatory markers Q3 Days -02 Support; If Requires more than NC will get ABG #Gram + Cocci bacteremia > Pulmonary source? - appreciate ID recommendations - Abx per ID - Vanc per pharm (03/07 - ) - surveilance blood cultures # Dementia -Monitor for acute agitation w/ COVID -Can consider Seroquel if needed for agitation FENPPX DVTPPX: lovenox Fluids: PRN Diet: yes Lines: PIV PT/OT: pending Code status: Full Dispo: home with HH Reason for Continued Hospitalization: acute hypoxic MIPS ([employer]it-based Incentive Payment System) Applicable CPT: 36859, 66328 CHECK A LL THAT ARE MET: [] Measure #5 (CHF): All ages. Prescribe CARIE/ARB upon discharge for patients with left ventricular systolic dysfunction. If not, the reason is clearly documented in the medical chart [] Measure #8 (CHF): All ages. Prescribe a beta more upon discharge for patients with left ventricular systolic dysfunction. If not, the reason is clearly documented in the medical chart. [x] Measure #47: Advance care plan or surrogate decision maker documented in the medical record. [x] Measure #130 The provider has documented, updated, or reviewed the patients current medication list and has documented it in the patients note. [] Measure #374 (All): Send report to referring provider. [] Measure #407(Sepsis due to MSSA bacteremia): Age 18+ Patient treated with a beta-lactam antibiotic (Nafcillin, Oxacillin or Cefazolin) as definitive therapy. MEDICAL COMPLEXITYHigh complexity medical decision making (need 2/3 categories)Problem - need 4 points [x]Acute/new problem with new plan for workup (4 points, 1 max) [] Acute/new problem without additional workup (3 points, 1 max) [x] Unstable chronic problem actively being managed (2 point each, 2 max) [x] Stable chronic problem actively being managed (1 point each, 2 max) [] Self-limited/transient process (constipation, muscle ache, etc) (1 point each, 2 max) Data - need 4 points [x] Reviewed labs/imaging studies (1 points, 2 max) [x] Independent review of imaging (EKG, xrays, etc) (2 points, 2 max) [x] Discussed case with consult/other MD/RN (2 points, 2 max) High Risk - qualify if have one of the following: [x] Severe exacerbation of acute problem, acute mental status change, IV narcotics, monitoring drug levels (vancomycin, INR, tacrolimus etc) I spent 36 minutes on this patient's case, and 20 mins was dedicated to counseling and/or care coordination. Discussed with DONYA hernandez, RN. Time of note may not reflect time of encounter Kristofer Barger D.O. Mar 08, 2020 17:35
[2020-03-08 20:00] VITALS: BP 133/66
[2020-03-08] MEDS: Atorvastatin 20mg tab ORAL SCH (20:07)
[2020-03-08] MEDS: Donepezil 10mg tab ORAL SCH (20:07)
[2020-03-08] MEDS: Enoxaparin 40mg Inj SUBQ SCH (20:09)
--- NOTE | 2020-03-08 20:20 | Neurology Progress Note ---
Interim History Interim History Interim History remains septic, cultures in blood positive, on atb confused but not agitated Objective Physical Exam Last Vital Signs Date Time Temp Pulse Resp B/P (MAP) Pulse Ox O2 Delivery O2 Flow Rate FiO2 03/08/20 16:00 78 03/08/20 16:00 98.2 20 122/66 (84) 95 03/08/20 09:00 Nasal Cannula 3.0 Laboratory Tests Test 03/08/20 09:10 White Blood Count 10.2 K/UL (4.8-10.8) Red Blood Count 5.04 M/UL (4.20-5.40) Hemoglobin 13.9 G/DL (12.0-16.0) Hematocrit 38.9 % (37.0-47.0) Mean Corpuscular Volume 77 FL (80-99) L Mean Corpuscular Hemoglobin 27.6 PG (27.0-31.0) Mean Corpuscular Hemoglobin Concent 35.7 G/DL (32.0-36.0) Red Cell Distribution Width 14.8 % (11.6-14.8) Platelet Count 480 K/UL (150-450) H Mean Platelet Volume 6.3 FL (6.5-10.1) L Neutrophils (%) (Auto) 69.1 % (45.0-75.0) Lymphocytes (%) (Auto) 16.8 % (20.0-45.0) L Monocytes (%) (Auto) 13.4 % (1.0-10.0) H Eosinophils (%) (Auto) 0.1 % (0.0-3.0) Basophils (%) (Auto) 0.6 % (0.0-2.0) Sodium Level 142 MMOL/L (136-145) Potassium Level 3.8 MMOL/L (3.5-5.1) Chloride Level 112 MMOL/L (98-107) H Carbon Dioxide Level 20 MMOL/L (21-32) L Anion Gap 10 mmol/L (5-15) Blood Urea Nitrogen 28 mg/dL (7-18) H Creatinine 0.9 MG/DL (0.55-1.30) Estimat Glomerular Filtration Rate 59.7 mL/min (>60) Glucose Level 106 MG/DL (74-106) Calcium Level 8.9 MG/DL (8.5-10.1) Phosphorus Level 3.1 MG/DL (2.5-4.9) Magnesium Level 2.1 MG/DL (1.8-2.4) Total Bilirubin 0.6 MG/DL (0.2-1.0) Direct Bilirubin 0.4 MG/DL (0.0-0.3) H Aspartate Amino Transf (AST/SGOT) 48 U/L (15-37) H Alanine Aminotransferase (ALT/SGPT) 40 U/L (12-78) Alkaline Phosphatase 87 U/L (46-116) Total Protein 6.4 G/DL (6.4-8.2) Albumin 2.3 G/DL (3.4-5.0) L Head: normocophalic Neck: no rigidity EENT: benign Neurologic Exam Objective somnolent, open eyes moves all 4 nc at abd soft Impression/Recommendations Problems: (1) Hypoxia (2) COVID-19 (3) Dyspnea (4) Respiratory distress (5) Altered mental status Status: stable, progressing Diagnostic Impression acute encephalopathy 2/2 covid dementia covid 19 delirium precautions for now covid support pt as able Rob Pascual MD Mar 08, 2020 20:20
[2020-03-08] MEDS: Maintenance Dose:Remdesivir 100mg/NS 230ml x 4 Doses IV SCH ×2 (21:11)
[2020-03-08] MEDS: Vancomycin 1gm/D5W 275ml IVPB SCH ×2 (23:01)
[2020-03-09] VITALS: BP 117/65
[2020-03-09 04:00] VITALS: BP 155/70
[2020-03-09] MEDS: Aztreonam Inj 1 GM in D5W 55 ML IVPB SCH ×3 (05:21→22:05)
[2020-03-09 07:07] LABS: BASOPHILS % (AUTO) 0.5 % (0.0-2.0); HEMATOCRIT 38.8 % (37.0-47.0); HEMOGLOBIN 13.2 G/DL (12.0-16.0); LYMPHOCYTES % (AUTO) 15.4 % (20.0-45.0); MEAN CORPUSCULAR VOLUME 79 FL (80-99); MONOCYTES % (AUTO) 9.6 % (1.0-10.0); NEUTROPHILS % (AUTO) 74.6 % (45.0-75.0); PLATELET COUNT 498 K/UL (150-450); RED BLOOD COUNT 4.89 M/UL (4.20-5.40); RED CELL DISTRIBUTION WIDTH 14.3 % (11.6-14.8); WHITE BLOOD COUNT 7.8 K/UL (4.8-10.8)
[2020-03-09 08:00] VITALS: BP 157/75
[2020-03-09 08:02] LABS: ALANINE AMINOTRANSFERASE 31 U/L (12-78); ALBUMIN 2.2 G/DL (3.4-5.0); ALBUMIN/GLOBULIN RATIO 0.5 (1.0-2.7); ALKALINE PHOSPHATASE 76 U/L (46-116); ANION GAP 11 mmol/L (5-15); ASPARTATE AMINO TRANSFERASE 31 U/L (15-37); BILIRUBIN,DIRECT 0.3 MG/DL (0.0-0.3); BILIRUBIN,TOTAL 0.6 MG/DL (0.2-1.0); BLOOD UREA NITROGEN 27 mg/dL (7-18); CALCIUM 8.5 MG/DL (8.5-10.1); CARBON DIOXIDE 19 MMOL/L (21-32); CHLORIDE 110 MMOL/L (98-107); CREATININE 0.6 MG/DL (0.55-1.30); POTASSIUM 3.7 MMOL/L (3.5-5.1); SODIUM 140 MMOL/L (136-145)
[2020-03-09 08:33] LABS: PHOSPHORUS 3.5 MG/DL (2.5-4.9)
[2020-03-09] MEDS: dilTIAZem HCl ER 180mg cap ORAL SCH (09:58)
[2020-03-09] MEDS: Lisinopril 10mg tab ORAL SCH (09:59)
[2020-03-09] MEDS: Doxycycline Hyclate 100 MG in D5W 110 ML IV SCH ×2 (10:40→22:02)
--- NOTE | 2020-03-09 11:24 | Pulmonology Progress Note ---
Subjective Allergies: Coded Allergies: PENICILLINS (Verified Allergy, Unknown, 03/06/20) Subjective on 2 L o2 via NC, no resp distress no CP no fevers, no leukocytosis Objective Last 24 Hour Vital Signs Date Time Temp Pulse Resp B/P (MAP) Pulse Ox O2 Delivery O2 Flow Rate FiO2 03/09/20 09:59 157/75 03/09/20 09:58 73 157/75 03/09/20 09:00 Nasal Cannula 2.0 03/09/20 08:00 96 03/09/20 08:00 97.5 73 20 157/75 (102) 94 03/09/20 04:00 97.3 72 18 155/70 (98) 94 03/09/20 04:00 68 03/09/20 00:00 99.6 77 24 117/65 (82) 94 03/09/20 00:00 70 03/08/20 21:00 Nasal Cannula 3.0 03/08/20 20:00 80 03/08/20 20:00 98.4 76 18 133/66 (88) 94 03/08/20 16:00 78 03/08/20 16:00 98.2 81 20 122/66 (84) 95 03/08/20 12:00 82 03/08/20 12:00 97.6 85 20 133/86 (102) 96 Intake and Output 03/08/20 03/09/20 19:00 07:00 Intake Total 150 ml 120 ml Balance 150 ml 120 ml Intake Oral 150 ml 120 ml # Voids 2 2 Objective General Appearance: WD/WN, no apparent distress, elderly Yi speaking female, awake, alert and forgetful Lines, tubes and drains: peripheral HEENT: normocephalic, atraumatic, anicteric, mucous membranes moist, PERRL, O2 via NC Neck: non-tender Respiratory/Chest: chest wall non-tender, lungs clear with moderate air exchange , no respiratory distress, no accessory muscle use Cardiovascular/Chest: normal peripheral pulses, normal rate Abdomen: normal bowel sounds, non tender, soft Extremities: non-tender, normal inspection, no calf tenderness, normal capillary refill Skin Exam: warm/dry Neurologic: alert, responsive, normal mood/affect Musculoskeletal: atrophy - BLE Microbiology Date/Time Source Procedure Growth Status 03/07/20 05:50 Nasopharynx Coronavirus COVID-19 PCR ([facility]) - Final Complete 03/06/20 15:45 Nasopharynx SARS-CoV-2 RdRp Gene Assay - Final Complete 03/06/20 15:45 Blood Blood Culture - Final Staphylococcus Epidermidis Complete 03/06/20 15:30 Blood Blood Culture - Final Staphylococcus Epidermidis Complete Laboratory Tests 03/09/20 06:25: White Blood Count 7.8, Red Blood Count 4.89, Hemoglobin 13.2, Hematocrit 38.8, Mean Corpuscular Volume 79L, Mean Corpuscular Hemoglobin 27.1, Mean Corpuscular Hemoglobin Concent 34.1, Red Cell Distribution Width 14.3, Platelet Count 498H, Mean Platelet Volume 6.3L, Neutrophils (%) (Auto) 74.6, Lymphocytes (%) (Auto) 15.4L, Monocytes (%) (Auto) 9.6, Eosinophils (%) (Auto) 0.0, Basophils (%) (Auto) 0.5, Sodium Level 140, Potassium Level 3.7, Chloride Level 110H, Carbon Dioxide Level 19L, Anion Gap 11, Blood Urea Nitrogen 27H, Creatinine 0.6, Estimat Glomerular Filtration Rate > 60, Glucose Level 115H, Calcium Level 8.5, Phosphorus Level 3.5, Magnesium Level 2.3, Total Bilirubin 0.6, Direct Bilirubin 0.3, Aspartate Amino Transf (AST/SGOT) 31, Alanine Aminotransferase (ALT/SGPT) 31, Alkaline Phosphatase 76, C-Reactive Protein, Quantitative 4.2H, Total Protein 6.6, Albumin 2.2L, Globulin 4.4, Albumin/Globulin Ratio 0.5L Current Medications Medications (Trade) Dose Ordered Sig/Ra Route PRN Reason Start Time Stop Time Status Last Admin Dose Admin Acetaminophen (Tylenol) 650 mg Q4H PRN ORAL Mild Pain (Pain Scale 1-3) 03/06/20 21:30 04/05/20 21:29 Albuterol Sulfate (Proventil MDI) 2 puff Q4H PRN INH Shortness of Breath 03/06/20 21:30 06/04/20 21:29 Atorvastatin Calcium (Lipitor) 40 mg BEDTIME ORAL 03/07/20 21:00 06/05/20 20:59 03/08/20 20:07 Aztreonam 1 gm/ Dextrose 55 ml @ 110 mls/hr Q8HR IVPB 03/07/20 14:00 03/14/20 13:59 03/09/20 05:21 Dexamethasone Sodium Phosphate (Decadron 4mg/ml vial) 6 mg DAILY IVP 03/08/20 09:00 03/16/20 12:00 03/09/20 09:59 Dextrose (Dextrose 50%) 25 ml Q30M PRN IV Hypoglycemia 03/06/20 21:30 06/04/20 21:29 Dextrose (Dextrose 50%) 50 ml Q30M PRN IV Hypoglycemia 03/06/20 21:30 06/04/20 21:29 Diltiazem HCl (Cardizem ER) 180 mg DAILY ORAL 03/08/20 09:00 04/07/20 08:59 03/09/20 09:58 Diphenhydramine HCl (Benadryl) 25 mg Q6H PRN ORAL Itching/Pruritis 03/06/20 21:30 04/05/20 21:29 Donepezil HCl (Aricept) 10 mg QHS ORAL 03/07/20 21:00 04/06/20 20:59 03/08/20 20:07 Doxycycline Hyclate 100 mg/ Dextrose 110 ml @ 110 mls/hr Q12HR IV 03/07/20 21:00 03/14/20 20:59 03/09/20 10:40 Enoxaparin Sodium (Lovenox) 40 mg QHS SUBQ 03/06/20 22:30 06/04/20 22:29 03/08/20 20:09 Lisinopril (ZestriL) 10 mg DAILY ORAL 03/08/20 09:00 04/07/20 08:59 03/09/20 09:59 Ondansetron HCl (Zofran) 4 mg Q6H PRN IVP Nausea & Vomiting 03/06/20 21:30 04/05/20 21:29 Remdesivir 100 mg/ Sodium Chloride 250 ml @ 250 mls/hr Q24H IV 03/08/20 21:00 03/11/20 21:59 03/08/20 21:11 Vancomycin HCl (Vanco pharmacy to dose) 1 ea DAILY PRN MISC Per rx protocol 03/07/20 20:45 04/06/20 20:44 Vancomycin HCl 1 gm/Dextrose 275 ml @ 183.708 mls/hr Q24H IVPB 03/08/20 22:00 03/13/20 21:59 03/08/20 23:01 Assessment/Plan Assessment/Plan ASSESSMENT COVID 19 PNA Acute hypoxemic respiratory failure due to COVID 19 PNA Gram positive bacteremia Possible UTI Hx of HTN Dementia PLAN OF CARE tele isolation O2 titrate to keep sat > 92% Albuterol MRI prn inflammatory markers initially all elevated ; latest CRP 4.2 on steroids and Remdesivivr COVID by PCR 03/07 not detected CXR this am taken, no image uploaded yet a/c with Lovenox ( PPX dose) empiric abx Doxy and Aztreonam, UCX never done BCX 03/06 + GPC in clusters Vanco added as per ID final BCX + CONS, likely contaminant repeat BCX for clearance 03/09 ECHO ordered by primary team monitor BP, hold on anti HTN for now supportive care case discussed and evaluated by supervising physician Luly Koo NP Mar 09, 2020 11:24 Janes Oliva MD Mar 09, 2020 19:58
[2020-03-09 12:00] VITALS: BP 141/63
--- NOTE | 2020-03-09 14:20 | Diagnostic Imaging Report ---
EXAM: XR Chest, 1 View CLINICAL HISTORY: INFECT TECHNIQUE: Frontal view of the chest. COMPARISON: No relevant prior studies available. FINDINGS: Lungs: Bilateral pulmonary opacities that may be from edema and/or pneumonia. Reduced lung volumes. Pleural space: Unremarkable. No pneumothorax. Heart: Large cardiomediastinal silhouette. Mediastinum: See above. Bones/joints: No acute fracture. Upper abdomen: Surgical clips in the right upper abdomen. Other findings: 03/09/20 at 1330. IMPRESSION: Bilateral pulmonary opacities that may be from edema and/or pneumonia.
[2020-03-09 16:00] VITALS: BP 145/72
[2020-03-09] MEDS ORDERED: D5W 275ml ONE (16:07)
[2020-03-09] MEDS ORDERED: Tubing IV Secondary IV ONE (16:07)
[2020-03-09] MEDS ORDERED: NS 275ml ONE (16:07)
--- NOTE | 2020-03-09 18:31 | General Progress Note ---
Subjective Date patient seen: Mar 09, 2020 Allergies: Coded Allergies: PENICILLINS (Verified Allergy, Unknown, 03/06/20) Subjective Chart reviewed. NO acute events overnight per nursing. COntinues to be on 2-3L nasal cannula. Feeling better overall. No other complaints. Review of systems: Constitutional: Denies: chills, diaphoresis, fever, malaise, weakness, HEENT: Denies: eye pain, blurred vision, double vision, ear pain, nose pain, throat pain, Cardiovascular: Denies: chest pain, edema, lightheadedness, palpitations Respiratory: Denies: cough, orthopnea, shortness of breath, SOB with excertion, SOB at rest, Gastrointestinal/Abdominal: Denies: abdominal pain, black stools, blood in stool, constipation, diarrhea, nausea, poor fluid intake vomiting, other Genitourinary: Denies: burning, discharge, frequency, Neurologic/Psychiatric: Denies: headache, numbness, paresthesia, new weakness, other Endocrine: Denies: excessive sweating, flushing, intolerance to cold, MSK: denies joint pains, swelling, stiffness Hematologic/Lymphatic: Denies: anemia, easy bleeding, easy bruising, Psych: no anxiety, depression, SI or HI Objective Last 24 Hour Vital Signs Date Time Temp Pulse Resp B/P (MAP) Pulse Ox O2 Delivery O2 Flow Rate FiO2 03/09/20 16:00 97.8 79 18 145/72 (96) 96 03/09/20 12:00 76 03/09/20 12:00 97.9 85 18 141/63 (89) 94 03/09/20 09:59 157/75 03/09/20 09:58 73 157/75 03/09/20 09:00 Nasal Cannula 2.0 03/09/20 08:00 96 03/09/20 08:00 97.5 73 20 157/75 (102) 94 03/09/20 04:00 97.3 72 18 155/70 (98) 94 03/09/20 04:00 68 03/09/20 00:00 99.6 77 24 117/65 (82) 94 03/09/20 00:00 70 03/08/20 21:00 Nasal Cannula 3.0 03/08/20 20:00 80 03/08/20 20:00 98.4 76 18 133/66 (88) 94 Intake and Output 03/08/20 03/09/20 19:00 07:00 Intake Total 150 ml 120 ml Balance 150 ml 120 ml Intake Oral 150 ml 120 ml # Voids 2 2 Laboratory Tests 03/09/20 06:25: White Blood Count 7.8, Red Blood Count 4.89, Hemoglobin 13.2, Hematocrit 38.8, Mean Corpuscular Volume 79L, Mean Corpuscular Hemoglobin 27.1, Mean Corpuscular Hemoglobin Concent 34.1, Red Cell Distribution Width 14.3, Platelet Count 498H, Mean Platelet Volume 6.3L, Neutrophils (%) (Auto) 74.6, Lymphocytes (%) (Auto) 1 5.4L, Monocytes (%) (Auto) 9.6, Eosinophils (%) (Auto) 0.0, Basophils (%) (Auto) 0.5, Sodium Level 140, Potassium Level 3.7, Chloride Level 110H, Carbon Dioxide Level 19L, Anion Gap 11, Blood Urea Nitrogen 27H, Creatinine 0.6, Estimat Glomerular Filtration Rate > 60, Glucose Level 115H, Calcium Level 8.5, Phosphorus Level 3.5, Magnesium Level 2.3, Total Bilirubin 0.6, Direct Bilirubin 0.3, Aspartate Amino Transf (AST/SGOT) 31, Alanine Aminotransferase (ALT/SGPT) 31, Alkaline Phosphatase 76, C-Reactive Protein, Quantitative 4.2H, Total Protein 6.6, Albumin 2.2L, Globulin 4.4, Albumin/Globulin Ratio 0.5L Height (Feet): 5 Height (Inches): 5.00 Weight (Pounds): 150 Objective General: WDWN male in NAD, A&O x 4 on nasal cannula HEENT: Normocephalic cephalic atraumatic, pupils equal round reactive to light and accommodation, nares patent and no symmetrical, no tonsillar exudates, mucous membranes moist CV: Regular rate regular rhythm, no murmurs, rubs, or gallops Pulm: Lungs clear to auscultation bilaterally. No wheezes, rhonchi, or rales GI: Soft, nontender, nondistended, bowel sounds present Neuro: CN 2-12 intact bilaterally, no focal signs. Ext: No lower extremity edema bilaterally Skin: no rashes lesions or ulcers Msk: Joints symmetrical in upper extremity and lower extremity bilaterally, no joint swelling. Lymph: No lymphadenopathy in upper extremity and lower extremity Assessment/Plan Status: stable, progressing Assessment/Plan: 87 yo F w/ COVID PNA and Dementia: Assessment/Plan # Acute Hypoxemic Resp Failure 2/2 COVID - improving # Covid PNA w/ Associated Inflammation/GI symptoms/ #Elevated Liver Enzymes -Appreciate Pulm-Dr. Oliva -Consult to ID, Dr. Armando -Decadron 6mg IV q10 days -Continue AB w/ Aztreonam and Doxy per Pulm -Briggs Cx Pending -Trend Inflammatory markers Q3 Days -02 Support; If Requires more than NC will get ABG #S. Epi bacteremia > Pulmonary source? > X2 blood cultures - appreciate ID recommendations - Abx per ID - Vanc per pharm (03/07 - ) - surveilance blood cultures - NGTD - check TTE - D/w ID # Dementia -Monitor for acute agitation w/ COVID -Can consider Seroquel if needed for agitation FENPPX DVTPPX: lovenox Fluids: PRN Diet: yes Lines: PIV PT/OT: pending Code status: Full Dispo: home with HH Reason for Continued Hospitalization: acute hypoxic MIPS ([employer]-based Incentive Payment System) Applicable CPT: 41007, 13437 CHECK ALL THAT ARE MET: [] Measure #5 (CHF): All ages. Prescribe CARIE/ARB upon discharge for patients with left ventricular systolic dysfunction. If not, the reason is clearly documented in the medical chart [] Measure #8 (CHF): All ages. Prescribe a beta more upon discharge for patients with left ventricular systolic dysfunction. If not, the reason is clearly documented in the medical chart. [x] Measure #47: Advance care plan or surrogate decision maker documented in the medical record. [x] Measure #130 The provider has documented, updated, or reviewed the patients current medication list and has documented it in the patients note. [] Measure #374 (All): Send report to referring provider. [] Measure #407(Sepsis due to MSSA bacteremia): Age 18+ Patient treated with a beta-lactam antibiotic (Nafcillin, Oxacillin or Cefazolin) as definitive therapy. MEDICAL COMPLEXITYHigh complexity medical decision making (need 2/3 categories)Problem - need 4 points [x]Acute/new problem with new plan for workup (4 points, 1 max) [] Acute/new problem without additional workup (3 points, 1 max) [x] Unstable chronic problem actively being managed (2 point each, 2 max) [x] Stable chronic problem actively being managed (1 point each, 2 max) [] Self-limited/transient process (constipation, muscle ache, etc) (1 point each, 2 max) Data - need 4 points [x] Reviewed labs/imaging studies (1 points, 2 max) [x] Independent review of imaging (EKG, xrays, etc) (2 points, 2 max) [x] Discussed case with consult/other MD/RN (2 points, 2 max) High Risk - qualify if have one of the following: [x] Severe exacerbation of acute problem, acute mental status change, IV narcotics, monitoring drug levels (vancomycin, INR, tacrolimus etc) I spent 38 minutes on this patient's case, and 22 mins was dedicated to counseling and/or care coordination. Discussed with DONYA hernandez, RN. Time of note may not reflect time of encounter Kristofer Barger D.O. Mar 09, 2020 18:31
--- NOTE | 2020-03-09 19:28 | Infectious Diseases Prog Note ---
Assessment/Plan Assessment/Plan ASSESSMENT AND PLAN: 1. covid-19 infection, pna, ? cap, ? performance reporter bacteremia vs contaminant, ? uti, lgt - dexamethasone and remdesivir - aztreonam and doxycycline - vancomycin - f/u blood cultures, TTE ordered - monitor labs 2. Hypertension. 3. Blood pressure treatment per primary care team. 4. Dementia. 5. Questionable dyslipidemia. 6. Allergies to penicillin. 7. Social history is negative. 8. Family history is noncontributory. 9. MAR was noted. 10. Case was discussed with RN. Subjective Constitutional: Reports: fatigue; Denies: fever Respiratory: Reports: shortness of breath - less Cardiovascular: Denies: chest pain Gastrointestinal/Abdominal: Denies: nausea, vomiting, diarrhea Genitourinary: Reports: other - no anderson Neurologic: Denies: headache Psychiatric: Denies: depression Skin: Denies: rash Hematologic: Denies: bleeding Musculoskeletal: Denies: pain Allergies: Coded Allergies: PENICILLINS (Verified Allergy, Unknown, 03/06/20) Objective Last 24 Hour Vital Signs Date Time Temp Pulse Resp B/P (MAP) Pulse Ox O2 Delivery O2 Flow Rate FiO2 03/09/20 16:00 97.8 79 18 145/72 (96) 96 03/09/20 16:00 74 03/09/20 12:00 76 03/09/20 12:00 97.9 85 18 141/63 (89) 94 03/09/20 09:59 157/75 03/09/20 09:58 73 157/75 03/09/20 09:00 Nasal Cannula 2.0 03/09/20 08:00 96 03/09/20 08:00 97.5 73 20 157/75 (102) 94 03/09/20 04:00 97.3 72 18 155/70 (98) 94 03/09/20 04:00 68 03/09/20 00:00 99.6 77 24 117/65 (82) 94 03/09/20 00:00 70 03/08/20 21:00 Nasal Cannula 3.0 03/08/20 20:00 80 03/08/20 20:00 98.4 76 18 133/66 (88) 94 Height (Feet): 5 Height (Inches): 5.00 Weight (Pounds): 150 General Appearance: no acute distress HEENT: normocephalic, atraumatic, anicteric Respiratory/Chest: crackles/rales, rhonchi - bilaterally Cardiovascular: normal rate, regular rhythm, no gallop/murmur Abdomen: normal bowel sounds, soft, non tender, no organomegaly, non distended Genitourinary: other - no anderson Extremities: no cyanosis Skin: no rash Neurologic/Psychiatric: needle leader II-XII grossly normal, alert, responsive Lymphatic: no neck adenopathy Musculoskeletal: no effusion Chest x-ray - 03/29/19 - FINDINGS: Lungs: Bilateral pulmonary opacities that may be from edema and/or pneumonia. Reduced lung volumes. Pleural space: Unremarkable. No pneumothorax. Heart: Large cardiomediastinal silhouette. Mediastinum: See above. Bones/joints: No acute fracture. Upper abdomen: Surgical clips in the right upper abdomen. Other findings: 03/09/20 at 1330. IMPRESSION: Bilateral pulmonary opacities that may be from edema and/or pneumonia. Microbiology Date/Time Source Procedure Growth Status 03/07/20 05:50 Nasopharynx Coronavirus COVID-19 PCR ([facility]) - Final Complete 03/06/20 15:45 Blood Blood Culture - Final Staphylococcus Epidermidis Complete Microbiology Date/Time Source Procedure Growth Status 03/07/20 05:50 Nasopharynx Coronavirus COVID-19 PCR ([facility]) - Final Complete Laboratory Tests Test 03/09/20 06:25 White Blood Count 7.8 K/UL (4.8-10.8) Red Blood Count 4.89 M/UL (4.20-5.40) Hemoglobin 13.2 G/DL (12.0-16.0) Hematocrit 38.8 % (37.0-47.0) Mean Corpuscular Volume 79 FL (80-99) L Mean Corpuscular Hemoglobin 27.1 PG (27.0-31.0) Mean Corpuscular Hemoglobin Concent 34.1 G/DL (32.0-36.0) Red Cell Distribution Width 14.3 % (11.6-14.8) Platelet Count 498 K/UL (150-450) H Mean Platelet Volume 6.3 FL (6.5-10.1) L Neutrophils (%) (Auto) 74.6 % (45.0-75.0) Lymphocytes (%) (Auto) 15.4 % (20.0-45.0) L Monocytes (%) (Auto) 9.6 % (1.0-10.0) Eosinophils (%) (Auto) 0.0 % (0.0-3.0) Basophils (%) (Auto) 0.5 % (0.0-2.0) Sodium Level 140 MMOL/L (136-145) Potassium Level 3.7 MMOL/L (3.5-5.1) Chloride Level 110 MMOL/L (98-107) H Carbon Dioxide Level 19 MMOL/L (21-32) L Anion Gap 11 mmol/L (5-15) Blood Urea Nitrogen 27 mg/dL (7-18) H Creatinine 0.6 MG/DL (0.55-1.30) Estimat Glomerular Filtration Rate > 60 mL/min (>60) Glucose Level 115 MG/DL (74-106) H Calcium Level 8.5 MG/DL (8.5-10.1) Phosphorus Level 3.5 MG/DL (2.5-4.9) Magnesium Level 2.3 MG/DL (1.8-2.4) Total Bilirubin 0.6 MG/DL (0.2-1.0) Direct Bilirubin 0.3 MG/DL (0.0-0.3) Aspartate Amino Transf (AST/SGOT) 31 U/L (15-37) Alanine Aminotransferase (ALT/SGPT) 31 U/L (12-78) Alkaline Phosphatase 76 U/L (46-116) C-Reactive Protein, Quantitative 4.2 mg/dL (0.00-0.90) H Total Protein 6.6 G/DL (6.4-8.2) Albumin 2.2 G/DL (3.4-5.0) L Globulin 4.4 g/dL Albumin/Globulin Ratio 0.5 (1.0-2.7) L Current Medications Medications (Trade) Dose Ordered Sig/Ra Route PRN Reason Start Time Stop Time Status Last Admin Dose Admin Acetaminophen (Tylenol) 650 mg Q4H PRN ORAL Mild Pain (Pain Scale 1-3) 03/06/20 21:30 04/05/20 21:29 Albuterol Sulfate (Proventil MDI) 2 puff Q4H PRN INH Shortness of Breath 03/06/20 21:30 06/04/20 21:29 Atorvastatin Calcium (Lipitor) 40 mg BEDTIME ORAL 03/07/20 21:00 06/05/20 20:59 03/08/20 20:07 Aztreonam 1 gm/ Dextrose 55 ml @ 110 mls/hr Q8HR IVPB 03/07/20 14:00 03/14/20 13:59 03/09/20 13:43 Dexamethasone Sodium Phosphate (Decadron 4mg/ml vial) 6 mg DAILY IVP 03/08/20 09:00 03/16/20 12:00 03/09/20 09:59 Dextrose (Dextrose 50%) 25 ml Q30M PRN IV Hypoglycemia 03/06/20 21:30 06/04/20 21:29 Dextrose (Dextrose 50%) 50 ml Q30M PRN IV Hypoglycemia 03/06/20 21:30 06/04/20 21:29 Diltiazem HCl (Cardizem ER) 180 mg DAILY ORAL 03/08/20 09:00 04/07/20 08:59 03/09/20 09:58 Diphenhydramine HCl (Benadryl) 25 mg Q6H PRN ORAL Itching/Pruritis 03/06/20 21:30 04/05/20 21:29 Donepezil HCl (Aricept) 10 mg QHS ORAL 03/07/20 21:00 04/06/20 20:59 03/08/20 20:07 Doxycycline Hyclate 100 mg/ Dextrose 110 ml @ 110 mls/hr Q12HR IV 03/07/20 21:00 03/14/20 20:59 03/09/20 10:40 Enoxaparin Sodium (Lovenox) 40 mg QHS SUBQ 03/06/20 22:30 06/04/20 22:29 03/08/20 20:09 Lisinopril (ZestriL) 10 mg DAILY ORAL 03/08/20 09:00 04/07/20 08:59 03/09/20 09:59 Ondansetron HCl (Zofran) 4 mg Q6H PRN IVP Nausea & Vomiting 03/06/20 21:30 04/05/20 21:29 Remdesivir 100 mg/ Sodium Chloride 250 ml @ 250 mls/hr Q24H IV 03/08/20 21:00 03/11/20 21:59 03/08/20 21:11 Vancomycin HCl (Vanco pharmacy to dose) 1 ea DAILY PRN MISC Per rx protocol 03/07/20 20:45 04/06/20 20:44 Vancomycin HCl 1 gm/Dextrose 275 ml @ 183.708 mls/hr Q24H IVPB 03/08/20 22:00 03/13/20 21:59 03/08/20 23:01 Jigna Weston MD Mar 09, 2020 19:28
[2020-03-09 20:00] VITALS: BP 152/88
--- NOTE | 2020-03-09 20:13 | Neurology Progress Note ---
Interim History Interim History Interim History no new complains today Objective Physical Exam Last Vital Signs Date Time Temp Pulse Resp B/P (MAP) Pulse Ox O2 Delivery O2 Flow Rate FiO2 03/09/20 16:00 97.8 79 18 145/72 (96) 96 03/09/20 09:00 Nasal Cannula 2.0 Laboratory Tests Test 03/09/20 06:25 White Blood Count 7.8 K/UL (4.8-10.8) Red Blood Count 4.89 M/UL (4.20-5.40) Hemoglobin 13.2 G/DL (12.0-16.0) Hematocrit 38.8 % (37.0-47.0) Mean Corpuscular Volume 79 FL (80-99) L Mean Corpuscular Hemoglobin 27.1 PG (27.0-31.0) Mean Corpuscular Hemoglobin Concent 34.1 G/DL (32.0-36.0) Red Cell Distribution Width 14.3 % (11.6-14.8) Platelet Count 498 K/UL (150-450) H Mean Platelet Volume 6.3 FL (6.5-10.1) L Neutrophils (%) (Auto) 74.6 % (45.0-75.0) Lymphocytes (%) (Auto) 15.4 % (20.0-45.0) L Monocytes (%) (Auto) 9.6 % (1.0-10.0) Eosinophils (%) (Auto) 0.0 % (0.0-3.0) Basophils (%) (Auto) 0.5 % (0.0-2.0) Sodium Level 140 MMOL/L (136-145) Potassium Level 3.7 MMOL/L (3.5-5.1) Chloride Level 110 MMOL/L (98-107) H Carbon Dioxide Level 19 MMOL/L (21-32) L Anion Gap 11 mmol/L (5-15) Blood Urea Nitrogen 27 mg/dL (7-18) H Creatinine 0.6 MG/DL (0.55-1.30) Estimat Glomerular Filtration Rate > 60 mL/min (>60) Glucose Level 115 MG/DL (74-106) H Calcium Level 8.5 MG/DL (8.5-10.1) Phosphorus Level 3.5 MG/DL (2.5-4.9) Magnesium Level 2.3 MG/DL (1.8-2.4) Total Bilirubin 0.6 MG/DL (0.2-1.0) Direct Bilirubin 0.3 MG/DL (0.0-0.3) Aspartate Amino Transf (AST/SGOT) 31 U/L (15-37) Alanine Aminotransferase (ALT/SGPT) 31 U/L (12-78) Alkaline Phosphatase 76 U/L (46-116) C-Reactive Protein, Quantitative 4.2 mg/dL (0.00-0.90) H Total Protein 6.6 G/DL (6.4-8.2) Albumin 2.2 G/DL (3.4-5.0) L Globulin 4.4 g/dL Albumin/Globulin Ratio 0.5 (1.0-2.7) L Head: normocophalic Neck: no rigidity EENT: benign Neurologic Exam Objective somnolent, open eyes moves all 4 nc at abd soft Impression/Recommendations Problems: (1) Hypoxia (2) COVID-19 (3) Dyspnea (4) Respiratory distress (5) Altered mental status Status: stable, progressing Diagnostic Impression acute encephalopathy 2/2 covid dementia covid 19 delirium precautions for now covid support pt as able Rob Pascual MD Mar 09, 2020 20:13
[2020-03-09] MEDS: Maintenance Dose:Remdesivir 100mg/NS 230ml x 4 Doses IV SCH ×2 (20:20)
[2020-03-09] MEDS: Atorvastatin 20mg tab ORAL SCH (20:48)
[2020-03-09] MEDS: Donepezil 10mg tab ORAL SCH (20:48)
[2020-03-09] MEDS: Enoxaparin 40mg Inj SUBQ SCH (20:49)
[2020-03-09] MEDS: Vancomycin 1gm/D5W 275ml IVPB SCH ×2 (23:07)
[2020-03-10] VITALS: BP 150/69
[2020-03-10 04:00] VITALS: BP 123/73
[2020-03-10] MEDS: Aztreonam Inj 1 GM in D5W 55 ML IVPB SCH ×3 (05:22→22:29)
[2020-03-10 08:00] VITALS: BP 114/75
[2020-03-10 08:20] LABS: BASOPHILS % (AUTO) 0.8 % (0.0-2.0); HEMATOCRIT 43.6 % (37.0-47.0); HEMOGLOBIN 14.4 G/DL (12.0-16.0); LYMPHOCYTES % (AUTO) 13.2 % (20.0-45.0); MEAN CORPUSCULAR VOLUME 84 FL (80-99); MONOCYTES % (AUTO) 7.5 % (1.0-10.0); NEUTROPHILS % (AUTO) 78.6 % (45.0-75.0); PLATELET COUNT 598 K/UL (150-450); RED CELL DISTRIBUTION WIDTH 14.8 % (11.6-14.8); WHITE BLOOD COUNT 12.9 K/UL (4.8-10.8)
[2020-03-10 08:29] LABS: PHOSPHORUS 2.8 MG/DL (2.5-4.9)
[2020-03-10 08:31] LABS: ALANINE AMINOTRANSFERASE 35 U/L (12-78); ALBUMIN 2.5 G/DL (3.4-5.0); ALBUMIN/GLOBULIN RATIO 0.5 (1.0-2.7); ALKALINE PHOSPHATASE 78 U/L (46-116); ANION GAP 13 mmol/L (5-15); ASPARTATE AMINO TRANSFERASE 44 U/L (15-37); BILIRUBIN,DIRECT 0.2 MG/DL (0.0-0.3); BILIRUBIN,TOTAL 0.7 MG/DL (0.2-1.0); BLOOD UREA NITROGEN 26 mg/dL (7-18); CALCIUM 9.1 MG/DL (8.5-10.1); CARBON DIOXIDE 18 MMOL/L (21-32); CHLORIDE 111 MMOL/L (98-107); CREATININE 0.8 MG/DL (0.55-1.30); POTASSIUM 3.7 MMOL/L (3.5-5.1); SODIUM 142 MMOL/L (136-145)
[2020-03-10] MEDS: Lisinopril 10mg tab ORAL SCH (08:40)
[2020-03-10] MEDS: dilTIAZem HCl ER 180mg cap ORAL SCH (08:40)
[2020-03-10] MEDS ORDERED: D5W 275ml ONE (09:47)
--- NOTE | 2020-03-10 10:57 | Pulmonology Progress Note ---
Subjective Constitutional: Reports: fatigue; Denies: fever Gastrointestinal/Abdominal: Denies: nausea, vomiting, diarrhea Psychiatric: Denies: depression Skin: Denies: rash Musculoskeletal: Denies: pain Allergies: Coded Allergies: PENICILLINS (Verified Allergy, Unknown, 03/06/20) Subjective on 2 L o2 via NC, no resp distress no CP no fevers, no leukocytosis Objective Last 24 Hour Vital Signs Date Time Temp Pulse Resp B/P (MAP) Pulse Ox O2 Delivery O2 Flow Rate FiO2 03/10/20 08:40 132/75 03/10/20 08:40 74 132/75 03/10/20 04:00 64 03/10/20 04:00 97.4 80 18 123/73 (90) 94 03/10/20 00:00 98.5 71 18 150/69 (96) 95 03/10/20 00:00 70 03/09/20 21:00 Room Air 03/09/20 20:00 97.5 76 18 152/88 (109) 93 03/09/20 20:00 81 03/09/20 16:00 97.8 79 18 145/72 (96) 96 03/09/20 16:00 74 03/09/20 12:00 76 03/09/20 12:00 97.9 85 18 141/63 (89) 94 Intake and Output 03/09/20 03/10/20 19:00 07:00 Intake Total 150 ml 100 ml Balance 150 ml 100 ml Intake Oral 150 ml 100 ml # Voids 1 1 Objective General Appearance: WD/WN, no apparent distress, elderly Syriac speaking female, awake, alert and forgetful Lines, tubes and drains: peripheral HEENT: normocephalic, atraumatic, anicteric, mucous membranes moist, PERRL, O 2 via NC Neck: non-tender Respiratory/Chest: chest wall non-tender, lungs clear with moderate air exchange , no respiratory distress, no accessory muscle use Cardiovascular/Chest: normal peripheral pulses, normal rate Abdomen: normal bowel sounds, non tender, soft Extremities: non-tender, normal inspection, no calf tenderness, normal capillary refill Skin Exam: warm/dry Neurologic: alert, responsive, normal mood/affect Musculoskeletal: atrophy - BLE Laboratory Tests 03/09/20 21:00: Vancomycin Level Trough 8.3 03/10/20 07:41: White Blood Count 12.9#H, Red Blood Count 5.20, Hemoglobin 14.4, Hematocrit 43.6, Mean Corpuscular Volume 84, Mean Corpuscular Hemoglobin 27.7, Mean Corpuscular Hemoglobin Concent 33.0, Red Cell Distribution Width 14.8, Platelet Count 598H, Mean Platelet Volume 6.1L, Neutrophils (%) (Auto) 78.6H, Lymphocytes (%) (Auto) 13.2L, Monocytes (%) (Auto) 7.5, Eosinophils (%) (Auto) 0.0, Basophils (%) (Auto) 0.8, Sodium Level 142, Potassium Level 3.7, Chloride Level 111H, Carbon Dioxide Level 18L, Anion Gap 13, Blood Urea Nitrogen 26H, Creatinine 0.8, Estimat Glomerular Filtration Rate > 60, Glucose Level 118H, Calcium Level 9.1, Phosphorus Level 2.8, Magnesium Level 2.3, Total Bilirubin 0.7, Direct Bilirubin 0.2, Aspartate Amino Transf (AST/SGOT) 44H, Alanine Aminotransferase (ALT/SGPT) 35, Alkaline Phosphatase 78, Total Protein 7.4, Albumin 2.5L, Globulin 4.9, Albumin/Globulin Ratio 0.5L Current Medications Medications (Trade) Dose Ordered Sig/Ra Route PRN Reason Start Time Stop Time Status Last Admin Dose Admin Acetaminophen (Tylenol) 650 mg Q4H PRN ORAL Mild Pain (Pain Scale 1-3) 03/06/20 21:30 04/05/20 21:29 Albuterol Sulfate (Proventil MDI) 2 puff Q4H PRN INH Shortness of Breath 03/06/20 21:30 06/04/20 21:29 Atorvastatin Calcium (Lipitor) 40 mg BEDTIME ORAL 03/07/20 21:00 06/05/20 20:59 03/09/20 20:48 Aztreonam 1 gm/ Dextrose 55 ml @ 110 mls/hr Q8HR IVPB 03/07/20 14:00 03/14/20 13:59 03/10/20 05:22 Dexamethasone Sodium Phosphate (Decadron 4mg/ml vial) 6 mg DAILY IVP 03/08/20 09:00 03/16/20 12:00 03/09/20 09:59 Dextrose (Dextrose 50%) 25 ml Q30M PRN IV Hypoglycemia 03/06/20 21:30 06/04/20 21:29 Dextrose (Dextrose 50%) 50 ml Q30M PRN IV Hypoglycemia 03/06/20 21:30 06/04/20 21:29 Diltiazem HCl (Cardizem ER) 180 mg DAILY ORAL 03/08/20 09:00 04/07/20 08:59 03/10/20 08:40 Diphenhydramine HCl (Benadryl) 25 mg Q6H PRN ORAL Itching/Pruritis 03/06/20 21:30 04/05/20 21:29 Donepezil HCl (Aricept) 10 mg QHS ORAL 03/07/20 21:00 04/06/20 20:59 03/09/20 20:48 Doxycycline Hyclate 100 mg/ Dextrose 110 ml @ 110 mls/hr Q12HR IV 03/07/20 21:00 03/14/20 20:59 03/09/20 22:02 Enoxaparin Sodium (Lovenox) 40 mg QHS SUBQ 03/06/20 22:30 06/04/20 22:29 03/09/20 20:49 Lisinopril (ZestriL) 10 mg DAILY ORAL 03/08/20 09:00 04/07/20 08:59 03/10/20 08:40 Ondansetron HCl (Zofran) 4 mg Q6H PRN IVP Nausea & Vomiting 03/06/20 21:30 04/05/20 21:29 Remdesivir 100 mg/ Sodium Chloride 250 ml @ 250 mls/hr Q24H IV 03/08/20 21:00 03/11/20 21:59 03/09/20 20:20 Vancomycin HCl (Vanco pharmacy to dose) 1 ea DAILY PRN MISC Per rx protocol 03/07/20 20:45 04/06/20 20:44 Vancomycin HCl 750 mg/Sodium Chloride 275 ml @ 183.333 mls/hr Q12H IVPB 03/10/20 11:00 03/15/20 10:59 Assessment/Plan Assessment/Plan ASSESSMENT COVID 19 PNA Acute hypoxemic respiratory failure due to COVID 19 PNA Gram positive bacteremia Possible UTI Hx of HTN Dementia PLAN OF CARE tele isolation Date of sx onset: few days prior to presentation to ED on 03/07 Positive test: 12/30 rapid COVID 19 +, 03/07 COVID by PCR NGT O2 2L NC HFA REM Day # 4 ( 03/07 - ) Dex Day# 4 ( 03/07 - ) DVT PPX: Lovenox D dimer 1.56 Trend CRP 17.9-> 4.2 CXR 03/09 Bilateral pulmonary opacities Abx per ID recs, BCX + Staph epidermidis, prob contaminant ; AMANDA pending Monitor volumes and renal function Fup with consultants recs FC discuss GOC case discussed and evaluated by supervising physician Luly Koo NP Mar 10, 2020 10:57 Janes Oliva MD Mar 10, 2020 19:50
[2020-03-10] MEDS: Doxycycline Hyclate 100 MG in D5W 110 ML IV SCH ×2 (11:15→20:12)
[2020-03-10 12:00] VITALS: BP 133/68
[2020-03-10] MEDS: Vancomycin 750mg/NS 275ml IVPB SCH ×4 (12:46→23:14)
[2020-03-10 16:00] VITALS: BP 129/73
[2020-03-10 20:00] VITALS: BP 130/83
--- NOTE | 2020-03-10 20:21 | General Progress Note ---
Subjective Allergies: Coded Allergies: PENICILLINS (Verified Allergy, Unknown, 03/06/20) Subjective Chart reviewed. NO acute events overnight per nursing. Titrated down to room air. Doing better. TTE without endocarditis. Feeling better overall. No other complaints. Review of systems: Constitutional: Denies: chills, diaphoresis, fever, malaise, weakness, HEENT: Denies: eye pain, blurred vision, double vision, ear pain, nose pain, throat pain, Cardiovascular: Denies: chest pain, edema, lightheadedness, palpitations Respiratory: Denies: cough, orthopnea, shortness of breath, SOB with excertion, SOB at rest, Gastrointestinal/Abdominal: Denies: abdominal pain, black stools, blood in stool, constipation, diarrhea, nausea, poor fluid intake vomiting, other Genitourinary: Denies: burning, discharge, frequency, Neurologic/Psychiatric: Denies: headache, numbness, paresthesia, new weakness, other Endocrine: Denies: excessive sweating, flushing, intolerance to cold, MSK: denies joint pains, swelling, stiffness Hematologic/Lymphatic: Denies: anemia, easy bleeding, easy bruising, Psych: no anxiety, depression, SI or HI Objective Last 24 Hour Vital Signs Date Time Temp Pulse Resp B/P (MAP) Pulse Ox O2 Delivery O2 Flow Rate FiO2 03/10/20 16:00 78 03/10/20 16:00 97.5 77 20 129/73 (91) 93 03/10/20 12:00 97.8 86 20 133/68 (89) 93 03/10/20 12:00 76 03/10/20 09:00 Room Air 03/10/20 08:40 132/75 03/10/20 08:40 74 132/75 03/10/20 08:00 98.0 80 20 114/75 (88) 94 03/10/20 08:00 80 03/10/20 04:00 64 03/10/20 04:00 97.4 80 18 123/73 (90) 94 03/10/20 00:00 98.5 71 18 150/69 (96) 95 03/10/20 00:00 70 03/09/20 21:00 Room Air Intake and Output 03/09/20 03/10/20 19:00 07:00 Intake Total 150 ml 100 ml Balance 150 ml 100 ml Intake Oral 150 ml 100 ml # Voids 1 1 Laboratory Tests 03/09/20 21:00: Vancomycin Level Trough 8.3 03/10/20 07:41: White Blood Count 12.9#H, Red Blood Count 5.20, Hemoglobin 14.4, Hematocrit 43.6, Mean Corpuscular Volume 84, Mean Corpuscular Hemoglobin 27.7, Mean Corpuscular Hemoglobin Concent 33.0, Red Cell Distribution Width 14.8, Platelet Count 598H, Mean Platelet Volume 6.1L, Neutrophils (%) (Auto) 78.6H, Lymphocytes (%) (Auto) 13.2L, Monocytes (%) (Auto) 7.5, Eosinophils (%) (Auto) 0.0, Basophils (%) (Auto) 0.8, Sodium Level 142, Potassium Level 3.7, Chloride Level 111H, Carbon Dioxide Level 18L, Anion Gap 13, Blood Urea Nitrogen 26H, Creatinine 0.8, Estimat Glomerular Filtration Rate > 60, Glucose Level 118H, Calcium Level 9.1, Phosphorus Level 2.8, Magnesium Level 2.3, Total Bilirubin 0.7, Direct Bilirubin 0.2, Aspartate Amino Transf (AST/SGOT) 44H, Alanine Aminotransferase (ALT/SGPT) 35, Alkaline Phosphatase 78, Total Protein 7.4, Albumin 2.5L, Globulin 4.9, Albumin/Globulin Ratio 0.5L Height (Feet): 5 Height (Inches): 5.00 Weight (Pounds): 150 Objective General: WDWN male in NAD, A&O x 4 on room air HEENT: Normocephalic cephalic atraumatic, pupils equal round reactive to light and accommodation, nares patent and no symmetrical, no tonsillar exudates, mucous membranes moist CV: Regular rate regular rhythm, no murmurs, rubs, or gallops Pulm: Lungs clear to auscultation bilaterally. No wheezes, rhonchi, or rales GI: Soft, nontender, nondistended, bowel sounds present Neuro: CN 2-12 intact bilaterally, no focal signs. Ext: No lower extremity edema bilaterally Skin: no rashes lesions or ulcers Msk: Joints symmetrical in upper extremity and lower extremity bilaterally, no joint swelling. Lymph: No lymphadenopathy in upper extremity and lower extremity Assessment/Plan Status: stable, progressing Assessment/Plan: 87 yo F w/ COVID PNA and Dementia: Assessment/Plan # Acute Hypoxemic Resp Failure 2/2 COVID - improving # Covid PNA w/ Associated Inflammation/GI symptoms/ #Elevated Liver Enzymes -Appreciate Pulm-Dr. Oliva -Consult to ID, Dr. Armando -Decadron 6mg IV q10 days -Continue AB w/ Aztreonam and Doxy per Pulm -Briggs Cx Pending -Trend Inflammatory markers Q3 Days -02 Support; If Requires more than NC will get ABG - PT ordered #S. Epi bacteremia, suspect contaminant > Pulmonary source? > X2 blood cultures > TTE neg. Doubt endocarditis - appreciate ID recommendations - Abx per ID - Vanc per pharm (03/07 - ) - surveilance blood cultures - NGTD # Dementia -Monitor for acute agitation w/ COVID -Can consider Seroquel if needed for agitation FENPPX DVTPPX: lovenox Fluids: PRN Diet: yes Lines: PIV PT/OT: pending Code status: Full Dispo: home with HH vs. rehab Reason for Continued Hospitalization: acute hypoxic MIPS (Merit-based Incentive Payment System) Applicable CPT: 46569, 98518 CHECK ALL THAT ARE MET: [] Measure #5 (CHF): All ages. Prescribe CARIE/ARB upon discharge for patients with left ventricular systolic dysfunction. If not, the reason is clearly documented in the medical chart [] Measure #8 (CHF): All ages. Prescribe a beta more upon discharge for p atients with left ventricular systolic dysfunction. If not, the reason is clearly documented in the medical chart. [x] Measure #47: Advance care plan or surrogate decision maker documented in the medical record. [x] Measure #130 The provider has documented, updated, or reviewed the patients current medication list and has documented it in the patients note. [] Measure #374 (All): Send report to referring provider. [] Measure #407(Sepsis due to MSSA bacteremia): Age 18+ Patient treated with a beta-lactam antibiotic (Nafcillin, Oxacillin or Cefazolin) as definitive therapy. MEDICAL COMPLEXITYHigh complexity medical decision making (need 2/3 categories)Problem - need 4 points [x]Acute/new problem with new plan for workup (4 points, 1 max) [] Acute/new problem without additional workup (3 points, 1 max) [x] Unstable chronic problem actively being managed (2 point each, 2 max) [x] Stable chronic problem actively being managed (1 point each, 2 max) [] Self-limited/transient process (constipation, muscle ache, etc) (1 point each, 2 max) Data - need 4 points [x] Reviewed labs/imaging studies (1 points, 2 max) [x] Independent review of imaging (EKG, xrays, etc) (2 points, 2 max) [x] Discussed case with consult/other MD/RN (2 points, 2 max) High Risk - qualify if have one of the following: [x] Severe exacerbation of acute problem, acute mental status change, IV narco tics, monitoring drug levels (vancomycin, INR, tacrolimus etc) I spent 40 minutes on this patient's case, and 23 mins was dedicated to counseling and/or care coordination. Discussed with DONYA hernandez, RN. Time of note may not reflect time of encounter Kristofer Barger D.O. Mar 10, 2020 20:21
--- NOTE | 2020-03-10 20:29 | Neurology Progress Note ---
Interim History Interim History Interim History more alert, no new deficits offo xygen Objective Physical Exam Last Vital Signs Date Time Temp Pulse Resp B/P (MAP) Pulse Ox O2 Delivery O2 Flow Rate FiO2 03/10/20 16:00 78 03/10/20 16:00 97.5 20 129/73 (91) 93 03/10/20 09:00 Room Air 03/09/20 09:00 2.0 Laboratory Tests Test 03/09/20 21:00 03/10/20 07:41 Vancomycin Level Trough 8.3 ug/mL (5.0-12.0) White Blood Count 12.9 K/UL (4.8-10.8) #H Red Blood Count 5.20 M/UL (4.20-5.40) Hemoglobin 14.4 G/DL (12.0-16.0) Hematocrit 43.6 % (37.0-47.0) Mean Corpuscular Volume 84 FL (80-99) Mean Corpuscular Hemoglobin 27.7 PG (27.0-31.0) Mean Corpuscular Hemoglobin Concent 33.0 G/DL (32.0-36.0) Red Cell Distribution Width 14.8 % (11.6-14.8) Platelet Count 598 K/UL (150-450) H Mean Platelet Volume 6.1 FL (6.5-10.1) L Neutrophils (%) (Auto) 78.6 % (45.0-75.0) H Lymphocytes (%) (Auto) 13.2 % (20.0-45.0) L Monocytes (%) (Auto) 7.5 % (1.0-10.0) Eosinophils (%) (Auto) 0.0 % (0.0-3.0) Basophils (%) (Auto) 0.8 % (0.0-2.0) Sodium Level 142 MMOL/L (136-145) Potassium Level 3.7 MMOL/L (3.5-5.1) Chloride Level 111 MMOL/L (98-107) H Carbon Dioxide Level 18 MMOL/L (21-32) L Anion Gap 13 mmol/L (5-15) Blood Urea Nitrogen 26 mg/dL (7-18) H Creatinine 0.8 MG/DL (0.55-1.30) Estimat Glomerular Filtration Rate > 60 mL/min (>60) Glucose Level 118 MG/DL (74-106) H Calcium Level 9.1 MG/DL (8.5-10.1) Phosphorus Level 2.8 MG/DL (2.5-4.9) Magnesium Level 2.3 MG/DL (1.8-2.4) Total Bilirubin 0.7 MG/DL (0.2-1.0) Direct Bilirubin 0.2 MG/DL (0.0-0.3) Aspartate Amino Transf (AST/SGOT) 44 U/L (15-37) H Alanine Aminotransferase (ALT/SGPT) 35 U/L (12-78) Alkaline Phosphatase 78 U/L (46-116) Total Protein 7.4 G/DL (6.4-8.2) Albumin 2.5 G/DL (3.4-5.0) L Globulin 4.9 g/dL Albumin/Globulin Ratio 0.5 (1.0-2.7) L Head: normocophalic Neck: no rigidity EENT: benign Neurologic Exam Objective somnolent, open eyes moves all 4 nc at abd soft Impression/Recommendations Problems: (1) Hypoxia (2) COVID-19 (3) Dyspnea (4) Respiratory distress (5) Altered mental status Status: stable, progressing Diagnostic Impression acute encephalopathy 2/2 covid dementia covid 19 delirium precautions for now covid support pt as able Rob Pascual MD Mar 10, 2020 20:29
[2020-03-10] MEDS: Maintenance Dose:Remdesivir 100mg/NS 230ml x 4 Doses IV SCH ×2 (21:07)
[2020-03-10] MEDS: Donepezil 10mg tab ORAL SCH (21:07)
[2020-03-10] MEDS: Atorvastatin 20mg tab ORAL SCH (21:08)
[2020-03-10] MEDS: Enoxaparin 40mg Inj SUBQ SCH (21:08)
[2020-03-11] VITALS: BP 127/68
[2020-03-11 04:00] VITALS: BP 124/65
[2020-03-11] MEDS: Aztreonam Inj 1 GM in D5W 55 ML IVPB SCH ×3 (05:24→22:29)
[2020-03-11 08:00] VITALS: BP 136/75
[2020-03-11] MEDS: Doxycycline Hyclate 100 MG in D5W 110 ML IV SCH ×2 (10:01→21:42)
[2020-03-11] MEDS: dilTIAZem HCl ER 180mg cap ORAL SCH (10:01)
[2020-03-11] MEDS: Lisinopril 10mg tab ORAL SCH (10:02)
[2020-03-11 10:28] LABS: BASOPHILS % (AUTO) 0.8 % (0.0-2.0); HEMATOCRIT 41.7 % (37.0-47.0); HEMOGLOBIN 14.3 G/DL (12.0-16.0); LYMPHOCYTES % (AUTO) 12.7 % (20.0-45.0); MEAN CORPUSCULAR VOLUME 80 FL (80-99); MONOCYTES % (AUTO) 7.6 % (1.0-10.0); NEUTROPHILS % (AUTO) 78.9 % (45.0-75.0); PLATELET COUNT 493 K/UL (150-450); RED BLOOD COUNT 5.24 M/UL (4.20-5.40); WHITE BLOOD COUNT 9.8 K/UL (4.8-10.8)
[2020-03-11 10:54] LABS: PHOSPHORUS 3.2 MG/DL (2.5-4.9)
[2020-03-11 11:04] LABS: ALANINE AMINOTRANSFERASE 50 U/L (12-78); ALBUMIN 2.2 G/DL (3.4-5.0); ALBUMIN/GLOBULIN RATIO 0.5 (1.0-2.7); ALKALINE PHOSPHATASE 72 U/L (46-116); ANION GAP 10 mmol/L (5-15); ASPARTATE AMINO TRANSFERASE 66 U/L (15-37); BILIRUBIN,DIRECT 0.3 MG/DL (0.0-0.3); BILIRUBIN,TOTAL 0.6 MG/DL (0.2-1.0); BLOOD UREA NITROGEN 25 mg/dL (7-18); CALCIUM 9.1 MG/DL (8.5-10.1); CARBON DIOXIDE 20 MMOL/L (21-32); CHLORIDE 111 MMOL/L (98-107); CREATININE 0.7 MG/DL (0.55-1.30); POTASSIUM 3.3 MMOL/L (3.5-5.1); SODIUM 141 MMOL/L (136-145)
--- NOTE | 2020-03-11 11:18 | Pulmonology Progress Note ---
Subjective ROS Limited/Unobtainable: No Constitutional: Reports: fatigue; Denies: fever Gastrointestinal/Abdominal: Denies: nausea, vomiting, diarrhea Psychiatric: Denies: depression Skin: Denies: rash Musculoskeletal: Denies: pain Allergies: Coded Allergies: PENICILLINS (Verified Allergy, Unknown, 03/06/20) Subjective on RA, no resp distress no CP no fevers, no leukocytosis Objective Last 24 Hour Vital Signs Date Time Temp Pulse Resp B/P (MAP) Pulse Ox O2 Delivery O2 Flow Rate FiO2 03/11/20 10:02 136/75 03/11/20 10:01 75 136/75 03/11/20 08:00 97.6 75 18 136/75 (95) 97 03/11/20 04:00 97.5 78 20 124/65 (84) 96 03/11/20 04:00 66 03/11/20 00:00 97.3 77 20 127/68 (87) 96 03/11/20 00:00 71 03/10/20 21:00 Room Air 03/10/20 20:00 73 03/10/20 20:00 97.3 81 20 130/83 (99) 94 03/10/20 16:00 78 03/10/20 16:00 97.5 77 20 129/73 (91) 93 03/10/20 12:00 97.8 86 20 133/68 (89) 93 03/10/20 12:00 76 Intake and Output 03/10/20 03/11/20 19:00 07:00 Intake Total 110 ml 100 ml Balance 110 ml 100 ml Intake Oral 110 ml 100 ml # Voids 2 2 Objective General Appearance: WD/WN, no apparent distress, elderly Faroese speaking female, awake, alert and forgetful Lines, tubes and drains: peripheral HEENT: normocephalic, atraumatic, anicteric, mucous membranes moist, PERRL, on RA Neck: non-tender Respiratory/Chest: chest wall non-tender, lungs clear with moderate air exchange , no respiratory distress, no accessory muscle use Cardiovascular/Chest: normal peripheral pulses, normal rate Abdomen: normal bowel sounds, non tender, soft Extremities: non-tender, normal inspection, no calf tenderness, normal capillary refill Skin Exam: warm/dry Neurologic: alert, responsive, normal mood/affect Musculoskeletal: atrophy - BLE Microbiology Date/Time Source Procedure Growth Status 03/09/20 10:30 Blood Blood Culture - Preliminary NO GROWTH AFTER 24 HOURS Resulted 03/09/20 10:20 Blood Blood Culture - Preliminary NO GROWTH AFTER 24 HOURS Resulted Laboratory Tests 03/11/20 10:00: White Blood Count 9.8, Red Blood Count 5.24, Hemoglobin 14.3, Hematocrit 41.7, Mean Corpuscular Volume 80, Mean Corpuscular Hemoglobin 27.3, Mean Corpuscular Hemoglobin Concent 34.3, Red Cell Distribution Width 14.0, Platelet Count 493H, Mean Platelet Volume 6.3L, Neutrophils (%) (Auto) 78.9H, Lymphocytes (%) (Auto) 12.7L, Monocytes (%) (Auto) 7.6, Eosinophils (%) (Auto) 0.0, Basophils (%) (Au to) 0.8, Sodium Level 141, Potassium Level 3.3L, Chloride Level 111H, Carbon Dioxide Level 20L, Anion Gap 10, Blood Urea Nitrogen 25H, Creatinine 0.7, Estimat Glomerular Filtration Rate > 60, Glucose Level 112H, Calcium Level 9.1, Phosphorus Level 3.2, Magnesium Level 2.2, Total Bilirubin 0.6, Direct Bilirubin 0.3, Aspartate Amino Transf (AST/SGOT) 66H, Alanine Aminotransferase (ALT/SGPT) 50, Alkaline Phosphatase 72, Total Protein 6.5, Albumin 2.2L, Globulin 4.3, Albumin/Globulin Ratio 0.5L Current Medications Medications (Trade) Dose Ordered Sig/Ra Route PRN Reason Start Time Stop Time Status Last Admin Dose Admin Acetaminophen (Tylenol) 650 mg Q4H PRN ORAL Mild Pain (Pain Scale 1-3) 03/06/20 21:30 04/05/20 21:29 Albuterol Sulfate (Proventil MDI) 2 puff Q4H PRN INH Shortness of Breath 03/06/20 21:30 06/04/20 21:29 Atorvastatin Calcium (Lipitor) 40 mg BEDTIME ORAL 03/07/20 21:00 06/05/20 20:59 03/10/20 21:08 Aztreonam 1 gm/ Dextrose 55 ml @ 110 mls/hr Q8HR IVPB 03/07/20 14:00 03/14/20 13:59 03/11/20 05:24 Dexamethasone Sodium Phosphate (Decadron 4mg/ml vial) 6 mg DAILY IVP 03/08/20 09:00 03/16/20 12:00 03/11/20 10:02 Dextrose (Dextrose 50%) 25 ml Q30M PRN IV Hypoglycemia 03/06/20 21:30 06/04/20 21:29 Dextrose (Dextrose 50%) 50 ml Q30M PRN IV Hypoglycemia 03/06/20 21:30 06/04/20 21:29 Diltiazem HCl (Cardizem ER) 180 mg DAILY ORAL 03/08/20 09:00 04/07/20 08:59 03/11/20 10:01 Diphenhydramine HCl (Benadryl) 25 mg Q6H PRN ORAL Itching/Pruritis 03/06/20 21:30 04/05/20 21:29 Donepezil HCl (Aricept) 10 mg QHS ORAL 03/07/20 21:00 04/06/20 20:59 03/10/20 21:07 Doxycycline Hyclate 100 mg/ Dextrose 110 ml @ 110 mls/hr Q12HR IV 03/07/20 21:00 03/14/20 20:59 03/11/20 10:01 Enoxaparin Sodium (Lovenox) 40 mg QHS SUBQ 03/06/20 22:30 06/04/20 22:29 03/10/20 21:08 Lisinopril (ZestriL) 10 mg DAILY ORAL 03/08/20 09:00 04/07/20 08:59 03/11/20 10:02 Ondansetron HCl (Zofran) 4 mg Q6H PRN IVP Nausea & Vomiting 03/06/20 21:30 04/05/20 21:29 Remdesivir 100 mg/ Sodium Chloride 250 ml @ 250 mls/hr Q24H IV 03/08/20 21:00 03/11/20 21:59 03/10/20 21:07 Vancomycin HCl (Vanco pharmacy to dose) 1 ea DAILY PRN MISC Per rx protocol 03/07/20 20:45 04/06/20 20:44 Vancomycin HCl 750 mg/Sodium Chloride 275 ml @ 183.333 mls/hr Q12H IVPB 03/10/20 11:00 03/15/20 10:59 1/2/21 23:14 Assessment/Plan Assessment/Plan ASSESSMENT COVID 19 PNA Acute hypoxemic respiratory failure due to COVID 19 PNA Gram positive bacteremia Possible UTI Hx of HTN Dementia PLAN OF CARE tele isolation Date of sx onset: few days prior to presentation to ED on 03/07 Positive test: 03/07 rapid COVID 19 +, 03/07 COVID by PCR NGT O2 RA HFA REM Day # 5 ( 03/07 - 03/11 ) Dex Day# 5 ( 03/07 - ) DVT PPX: Lovenox D dimer 1.56 Trend CRP 17.9-> 4.2 CXR 03/09 Bilateral pulmonary opacities Abx per ID recs, BCX + Staph epidermidis, prob contaminant ; ECHO with pEF 60, + echogenic material on post MV, likely calcification repeated BCX 03/09 NGTD Monitor volumes and renal function Fup with consultants recs FC discuss GOC case discussed and evaluated by supervising physician Luly Koo NP Mar 11, 2020 11:18 Janes Oliva MD Mar 11, 2020 20:40
[2020-03-11 12:00] VITALS: BP 152/88
[2020-03-11] MEDS: Vancomycin 750mg/NS 275ml IVPB SCH ×4 (12:24→23:18)
[2020-03-11] MEDS ORDERED: NS 275ml ONE (13:24)
[2020-03-11 16:00] VITALS: BP 139/81
--- NOTE | 2020-03-11 17:31 | General Progress Note ---
Subjective Date patient seen: Mar 11, 2020 Allergies: Coded Allergies: PENICILLINS (Verified Allergy, Unknown, 03/06/20) Subjective No acute events overnight per nursing. Patient feels well. Finishing Remdesivir. Blood cultures remain negative. Feeling better overall. No other complaints. Review of systems: Constitutional: Denies: chills, diaphoresis, fever, malaise, weakness, HEENT: Denies: eye pain, blurred vision, double vision, ear pain, nose pain, throat pain, Cardiovascular: Denies: chest pain, edema, lightheadedness, palpitations Respiratory: Denies: cough, orthopnea, shortness of breath, SOB with excertion, SOB at rest, Gastrointestinal/Abdominal: Denies: abdominal pain, black stools, blood in stool, constipation, diarrhea, nausea, poor fluid intake vomiting, other Genitourinary: Denies: burning, discharge, frequency, Neurologic/Psychiatric: Denies: headache, numbness, paresthesia, new weakness, other Endocrine: Denies: excessive sweating, flushing, intolerance to cold, MSK: denies joint pains, swelling, stiffness Hematologic/Lymphatic: Denies: anemia, easy bleeding, easy bruising, Psych: no anxiety, depression, SI or HI Objective Last 24 Hour Vital Signs Date Time Temp Pulse Resp B/P (MAP) Pulse Ox O2 Delivery O2 Flow Rate FiO2 03/11/20 16:00 98.0 78 18 139/81 (100) 93 03/11/20 12:00 97.4 79 18 152/88 (109) 93 03/11/20 10:02 136/75 03/11/20 10:01 75 136/75 03/11/20 10:00 67 03/11/20 09:00 Room Air 03/11/20 08:00 73 03/11/20 08:00 97.6 75 18 136/75 (95) 97 03/11/20 04:00 97.5 78 20 124/65 (84) 96 03/11/20 04:00 66 03/11/20 00:00 97.3 77 20 127/68 (87) 96 03/11/20 00:00 71 03/10/20 21:00 Room Air 03/10/20 20:00 73 03/10/20 20:00 97.3 81 20 130/83 (99) 94 Intake and Output 03/10/20 03/11/20 19:00 07:00 Intake Total 110 ml 100 ml Balance 110 ml 100 ml Intake Oral 110 ml 100 ml # Voids 2 2 Laboratory Tests 03/11/20 10:00: White Blood Count 9.8, Red Blood Count 5.24, Hemoglobin 14.3, Hematocrit 41.7, Mean Corpuscular Volume 80, Mean Corpuscular Hemoglobin 27.3, Mean Corpuscular Hemoglobin Concent 34.3, Red Cell Distribution Width 14.0, Platelet Count 493H, Mean Platelet Volume 6.3L, Neutrophils (%) (Auto) 78.9H, Lymphocytes (%) (Auto) 12.7L, Monocytes (%) (Auto) 7.6, Eosinophils (%) (Auto) 0.0, Basophils (%) (Auto) 0.8, Sodium Level 141, Potassium Level 3.3L, Chloride Level 111H, Carbon Dioxide Level 20L, Anion Gap 10, Blood Urea Nitrogen 25H, Creatinine 0.7, Estimat Glomerular Filtration Rate > 60, Glucose Level 112H, Calcium Level 9.1, Phosphorus Level 3.2, Magnesium Level 2.2, Total Bilirubin 0.6, Direct Bilirubin 0.3, Aspartate Amino Transf (AST/SGOT) 66H, Alanine Aminotransferase (ALT/SGPT) 50, Alkaline Phosphatase 72, Total Protein 6.5, Albumin 2.2L, Globulin 4.3, Albumin/Globulin Ratio 0.5L Height (Feet): 5 Height (Inches): 5.00 Weight (Pounds): 150 Objective General: WDWN male in NAD, A&O x 4 on room air HEENT: Normocephalic cephalic atraumatic, pupils equal round reactive to light and accommodation, nares patent and no symmetrical, no tonsillar exudates, mucous membranes moist CV: Regular rate regular rhythm, no murmurs, rubs, or gallops Pulm: Lungs clear to auscultation bilaterally. No wheezes, rhonchi, or rales GI: Soft, nontender, nondistended, bowel sounds present Neuro: CN 2-12 intact bilaterally, no focal signs. Ext: No lower extremity edema bilaterally Skin: no rashes lesions or ulcers Msk: Joints symmetrical in upper extremity and lower extremity bilaterally, no joint swelling. Lymph: No lymphadenopathy in upper extremity and lower extremity Assessment/Plan Status: stable, progressing Assessment/Plan: 87 yo F w/ COVID PNA and Dementia: Assessment/Plan # Acute Hypoxemic Resp Failure 2/2 COVID - improving # Covid PNA w/ Associated Inflammation/GI symptoms/ #Elevated Liver Enzymes -Appreciate Pulm-Dr. Oliva -Consult to ID, Dr. Armando -Decadron 6mg IV q10 days -Remdesivir (03/08 - ) -Continue AB w/ Aztreonam and Doxy per Pulm -Trend Inflammatory markers Q3 Days -02 Support; If Requires more than NC will get ABG - PT ordered - Pending #S. Epi bacteremia, suspect contaminant > Pulmonary source? > X2 blood cultures > TTE neg. Doubt endocarditis - appreciate ID recommendations - Abx per ID - Vanc per pharm (03/07 - ) - surveilance blood cultures - NGTD # Dementia -Monitor for acute agitation w/ COVID -Can consider Seroquel if needed for agitation FENPPX DVTPPX: lovenox Fluids: PRN Diet: yes Lines: PIV PT/OT: pending Code status: Full Dispo: home with HH vs. rehab Reason for Continued Hospitalization: acute hypoxic MIPS ([employer]-based Incentive Payment System) Applicable CPT: 76472, 06376 CHECK ALL THAT ARE MET: [] Measure #5 (CHF): All ages. Prescribe CARIE/ARB upon discharge for patients with left ventricular systolic dysfunction. If not, the reason is clearly documented in the medical chart [] Measure #8 (CHF): All ages. Prescribe a beta more upon discharge for patients with left ventricular systolic dysfunction. If not, the reason is clearly documented in the medical chart. [x] Measure #47: Advance care plan or surrogate decision maker documented in the medical record. [x] Measure #130 The provider has documented, updated, or reviewed the patients current medication list and has documented it in the patients note. [] Measure #374 (All): Send report to referring provider. [] Measure #407(Sepsis due to MSSA bacteremia): Age 18+ Patient treated with a beta-lactam antibiotic (Nafcillin, Oxacillin or Cefazolin) as definitive therapy. MEDICAL COMPLEXITYHigh complexity medical decision making (need 2/3 categories)Problem - need 4 points [x]Acute/new problem with new plan for workup (4 points, 1 max) [] Acute/new problem without additional workup (3 points, 1 max) [x] Unstable chronic problem actively being managed (2 point each, 2 max) [x] Stable chronic problem actively being managed (1 point each, 2 max) [] Self-limited/transient process (constipation, muscle ache, etc) (1 point each, 2 max) Data - need 4 points [x] Reviewed labs/imaging studies (1 points, 2 max) [x] Independent review of imaging (EKG, xrays, etc) (2 points, 2 max) [x] Discussed case with consult/other MD/RN (2 points, 2 max) High Risk - qualify if have one of the following: [x] Severe exacerbation of acute problem, acute mental status change, IV narcotics, monitoring drug levels (vancomycin, INR, tacrolimus etc) I spent 36 minutes on this patient's case, and 20 mins was dedicated to counseling and/or care coordination. Discussed with DONYA hernandez, RN. Time of note may not reflect time of encounter Kristofer Barger D.O. Mar 11, 2020 17:31
[2020-03-11 20:00] VITALS: BP 140/84
[2020-03-11] MEDS: Maintenance Dose:Remdesivir 100mg/NS 230ml x 4 Doses IV SCH ×2 (21:42)
[2020-03-11] MEDS: Donepezil 10mg tab ORAL SCH (21:42)
[2020-03-11] MEDS: Atorvastatin 20mg tab ORAL SCH (21:43)
[2020-03-11] MEDS ORDERED: Enoxaparin Sodium 300mg/3ml vial SUBQ ONE (23:00)
--- NOTE | 2020-03-11 23:19 | Neurology Progress Note ---
Interim History Interim History ROS Limited/Unobtainable: No Interim History no new deficits Objective Physical Exam Last Vital Signs Date Time Temp Pulse Resp B/P (MAP) Pulse Ox O2 Delivery O2 Flow Rate FiO2 03/11/20 21:00 Room Air 03/11/20 20:00 98.3 76 20 140/84 (102) 93 03/09/20 09:00 2.0 Laboratory Tests Test 03/11/20 10:00 White Blood Count 9.8 K/UL (4.8-10.8) Red Blood Count 5.24 M/UL (4.20-5.40) Hemoglobin 14.3 G/DL (12.0-16.0) Hematocrit 41.7 % (37.0-47.0) Mean Corpuscular Volume 80 FL (80-99) Mean Corpuscular Hemoglobin 27.3 PG (27.0-31.0) Mean Corpuscular Hemoglobin Concent 34.3 G/DL (32.0-36.0) Red Cell Distribution Width 14.0 % (11.6-14.8) Platelet Count 493 K/UL (150-450) H Mean Platelet Volume 6.3 FL (6.5-10.1) L Neutrophils (%) (Auto) 78.9 % (45.0-75.0) H Lymphocytes (%) (Auto) 12.7 % (20.0-45.0) L Monocytes (%) (Auto) 7.6 % (1.0-10.0) Eosinophils (%) (Auto) 0.0 % (0.0-3.0) Basophils (%) (Auto) 0.8 % (0.0-2.0) Sodium Level 141 MMOL/L (136-145) Potassium Level 3.3 MMOL/L (3.5-5.1) L Chloride Level 111 MMOL/L (98-107) H Carbon Dioxide Level 20 MMOL/L (21-32) L Anion Gap 10 mmol/L (5-15) Blood Urea Nitrogen 25 mg/dL (7-18) H Creatinine 0.7 MG/DL (0.55-1.30) Estimat Glomerular Filtration Rate > 60 mL/min (>60) Glucose Level 112 MG/DL (74-106) H Calcium Level 9.1 MG/DL (8.5-10.1) Phosphorus Level 3.2 MG/DL (2.5-4.9) Magnesium Level 2.2 MG/DL (1.8-2.4) Total Bilirubin 0.6 MG/DL (0.2-1.0) Direct Bilirubin 0.3 MG/DL (0.0-0.3) Aspartate Amino Transf (AST/SGOT) 66 U/L (15-37) H Alanine Aminotransferase (ALT/SGPT) 50 U/L (12-78) Alkaline Phosphatase 72 U/L (46-116) Total Protein 6.5 G/DL (6.4-8.2) Albumin 2.2 G/DL (3.4-5.0) L Globulin 4.3 g/dL Albumin/Globulin Ratio 0.5 (1.0-2.7) L Head: normocophalic Neck: no rigidity EENT: benign Neurologic Exam Objective somnolent, open eyes moves all 4 nc at abd soft Impression/Recommendations Problems: (1) Hypoxia (2) COVID-19 (3) Dyspnea (4) Respiratory distress (5) Altered mental status Status: stable, progressing Diagnostic Impression acute encephalopathy 2/2 covid dementia covid 19 delirium precautions for now covid support pt as able Rob Pascual MD Mar 11, 2020 23:19
--- NOTE | 2020-03-11 23:42 | Infectious Diseases Prog Note ---
Assessment/Plan Assessment/Plan ASSESSMENT AND PLAN: 1. covid-19 infection, pna, ? cap, ? electronics hardware design engineer bacteremia vs contaminant, ? uti, lgt - dexamethasone - s/p remdesivir - aztreonam and doxycycline - day # 5/7 - vancomycin for electronics hardware design engineer blood cultures - day # 5 - f/u blood cultures negative, TTE without vegetations - monitor labs 2. Hypertension. 3. Blood pressure treatment per primary care team. 4. Dementia. 5. Questionable dyslipidemia. 6. Allergies to penicillin. 7. Social history is negative. 8. Family history is noncontributory. 9. MAR was noted. 10. Case was discussed with RN. Subjective Constitutional: Reports: fatigue; Denies: fever HEENT: Denies: congestion Respiratory: Denies: shortness of breath Cardiovascular: Denies: chest pain Gastrointestinal/Abdominal: Denies: nausea, vomiting, diarrhea Genitourinary: Reports: other - no anderson Neurologic: Denies: headache Psychiatric: Denies: depression Skin: Denies: rash Hematologic: Denies: bleeding Musculoskeletal: Denies: pain Allergies: Coded Allergies: PENICILLINS (Verified Allergy, Unknown, 03/06/20) Objective Last 24 Hour Vital Signs Date Time Temp Pulse Resp B/P (MAP) Pulse Ox O2 Delivery O2 Flow Rate FiO2 03/11/20 21:00 Room Air 03/11/20 20:00 98.3 76 20 140/84 (102) 93 03/11/20 20:00 76 03/11/20 16:00 73 03/11/20 16:00 98.0 78 18 139/81 (100) 93 03/11/20 12:00 97.4 79 18 152/88 (109) 93 03/11/20 10:02 136/75 03/11/20 10:01 75 136/75 03/11/20 10:00 67 03/11/20 09:00 Room Air 03/11/20 08:00 73 03/11/20 08:00 97.6 75 18 136/75 (95) 97 03/11/20 04:00 97.5 78 20 124/65 (84) 96 03/11/20 04:00 66 03/11/20 00:00 97.3 77 20 127/68 (87) 96 03/11/20 00:00 71 Height (Feet): 5 Height (Inches): 5.00 Weight (Pounds): 150 General Appearance: no acute distress HEENT: normocephalic, atraumatic, anicteric, mucous membranes moist Respiratory/Chest: rhonchi - bilaterally, rhonchi - left Cardiovascular: normal rate, regular rhythm, no gallop/murmur Abdomen: normal bowel sounds, soft, non tender, no organomegaly, non distended Genitourinary: other - no anderson Extremities: no cyanosis Skin: no rash 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 Reduced lung volumes. Pleural space: Unremarkable. No pneumothorax. Heart: Large cardiomediastinal silhouette. Mediastinum: See above. Bones/joints: No acute fracture. Upper abdomen: Surgical clips in the right upper abdomen. Other findings: 03/09/20 at 1330. IMPRESSION: Bilateral pulmonary opacities that may be from edema and/or pneumonia. Microbiology Date/Time Source Procedure Growth Status 03/09/20 10:30 Blood Blood Culture - Preliminary NO GROWTH AFTER 24 HOURS Resulted 03/07/20 05:50 Nasopharynx Coronavirus COVID-19 PCR ([facility]) - Final Complete Microbiology Date/Time Source Procedure Growth Status 03/09/20 10:30 Blood Blood Culture - Preliminary NO GROWTH AFTER 24 HOURS Resulted 03/09/20 10:20 Blood Blood Culture - Preliminary NO GROWTH AFTER 24 HOURS Resulted Laboratory Tests Test 03/11/20 10:00 White Blood Count 9.8 K/UL (4.8-10.8) Red Blood Count 5.24 M/UL (4.20-5.40) Hemoglobin 14.3 G/DL (12.0-16.0) Hematocrit 41.7 % (37.0-47.0) Mean Corpuscular Volume 80 FL (80-99) Mean Corpuscular Hemoglobin 27.3 PG (27.0-31.0) Mean Corpuscular Hemoglobin Concent 34.3 G/DL (32.0-36.0) Red Cell Distribution Width 14.0 % (11.6-14.8) Platelet Count 493 K/UL (150-450) H Mean Platelet Volume 6.3 FL (6.5-10.1) L Neutrophils (%) (Auto) 78.9 % (45.0-75.0) H Lymphocytes (%) (Auto) 12.7 % (20.0-45.0) L Monocytes (%) (Auto) 7.6 % (1.0-10.0) Eosinophils (%) (Auto) 0.0 % (0.0-3.0) Basophils (%) (Auto) 0.8 % (0.0-2.0) Sodium Level 141 MMOL/L (136-145) Potassium Level 3.3 MMOL/L (3.5-5.1) L Chloride Level 111 MMOL/L (98-107) H Carbon Dioxide Level 20 MMOL/L (21-32) L Anion Gap 10 mmol/L (5-15) Blood Urea Nitrogen 25 mg/dL (7-18) H Creatinine 0.7 MG/DL (0.55-1.30) Estimat Glomerular Filtration Rate > 60 mL/min (>60) Glucose Level 112 MG/DL (74-106) H Calcium Level 9.1 MG/DL (8.5-10.1) Phosphorus Level 3.2 MG/DL (2.5-4.9) Magnesium Level 2.2 MG/DL (1.8-2.4) Total Bilirubin 0.6 MG/DL (0.2-1.0) Direct Bilirubin 0.3 MG/DL (0.0-0.3) Aspartate Amino Transf (AST/SGOT) 66 U/L (15-37) H Alanine Aminotransferase (ALT/SGPT) 50 U/L (12-78) Alkaline Phosphatase 72 U/L (46-116) Total Protein 6.5 G/DL (6.4-8.2) Albumin 2.2 G/DL (3.4-5.0) L Globulin 4.3 g/dL Albumin/Globulin Ratio 0.5 (1.0-2.7) L Current Medications Medications (Trade) Dose Ordered Sig/Ra Route PRN Reason Start Time Stop Time Status Last Admin Dose Admin Acetaminophen (Tylenol) 650 mg Q4H PRN ORAL Mild Pain (Pain Scale 1-3) 03/06/20 21:30 04/05/20 21:29 Albuterol Sulfate (Proventil MDI) 2 puff Q4H PRN INH Shortness of Breath 03/06/20 21:30 06/04/20 21:29 Atorvastatin Calcium (Lipitor) 40 mg BEDTIME ORAL 03/07/20 21:00 06/05/20 20:59 03/11/20 21:43 Aztreonam 1 gm/ Dextrose 55 ml @ 110 mls/hr Q8HR IVPB 03/07/20 14:00 03/14/20 13:59 03/11/20 22:29 Dexamethasone Sodium Phosphate (Decadron 4mg/ml vial) 6 mg DAILY IVP 03/08/20 09:00 03/16/20 12:00 03/11/20 10:02 Dextrose (Dextrose 50%) 25 ml Q30M PRN IV Hypoglycemia 03/06/20 21:30 06/04/20 21:29 Dextrose (Dextrose 50%) 50 ml Q30M PRN IV Hypoglycemia 03/06/20 21:30 06/04/20 21:29 Diltiazem HCl (Cardizem ER) 180 mg DAILY ORAL 03/08/20 09:00 04/07/20 08:59 03/11/20 10:01 Diphenhydramine HCl (Benadryl) 25 mg Q6H PRN ORAL Itching/Pruritis 03/06/20 21:30 04/05/20 21:29 Donepezil HCl (Aricept) 10 mg QHS ORAL 03/07/20 21:00 04/06/20 20:59 03/11/20 21:42 Doxycycline Hyclate 100 mg/ Dextrose 110 ml @ 110 mls/hr Q12HR IV 03/07/20 21:00 03/14/20 20:59 03/11/20 21:42 Enoxaparin Sodium (Lovenox) 40 mg QHS SUBQ 03/12/20 21:00 06/10/20 20:59 Lisinopril (ZestriL) 10 mg DAILY ORAL 03/08/20 09:00 04/07/20 08:59 03/11/20 10:02 Ondansetron HCl (Zofran) 4 mg Q6H PRN IVP Nausea & Vomiting 03/06/20 21:30 04/05/20 21:29 Vancomycin HCl (Vanco pharmacy to dose) 1 ea DAILY PRN MISC Per rx protocol 03/07/20 20:45 04/06/20 20:44 Vancomycin HCl 750 mg/Sodium Chloride 275 ml @ 183.333 mls/hr Q12H IVPB 03/10/20 11:00 03/15/20 10:59 03/11/20 23:18 Jigna Weston MD Mar 11, 2020 23:42
[2020-03-12] VITALS: BP 138/83
[2020-03-12 04:00] VITALS: BP 136/80
[2020-03-12] MEDS: Aztreonam Inj 1 GM in D5W 55 ML IVPB SCH ×3 (05:15→22:35)
[2020-03-12 06:39] LABS: BASOPHILS % (AUTO) 0.5 % (0.0-2.0); HEMATOCRIT 36.3 % (37.0-47.0); HEMOGLOBIN 11.9 G/DL (12.0-16.0); LYMPHOCYTES % (AUTO) 14.1 % (20.0-45.0); MEAN CORPUSCULAR VOLUME 84 FL (80-99); MONOCYTES % (AUTO) 5.9 % (1.0-10.0); NEUTROPHILS % (AUTO) 79.5 % (45.0-75.0); PLATELET COUNT 417 K/UL (150-450); RED BLOOD COUNT 4.31 M/UL (4.20-5.40); RED CELL DISTRIBUTION WIDTH 14.5 % (11.6-14.8); WHITE BLOOD COUNT 7.7 K/UL (4.8-10.8)
[2020-03-12 08:00] VITALS: BP 131/85
[2020-03-12] MEDS: dilTIAZem HCl ER 180mg cap ORAL SCH (09:00)
--- NOTE | 2020-03-12 09:29 | Pulmonology Progress Note ---
Subjective Allergies: Coded Allergies: PENICILLINS (Verified Allergy, Unknown, 03/06/20) Subjective on RA, no resp distress no CP no fevers, no leukocytosis Objective Last 24 Hour Vital Signs Date Time Temp Pulse Resp B/P (MAP) Pulse Ox O2 Delivery O2 Flow Rate FiO2 03/12/20 04:00 97.8 70 18 136/80 (98) 94 03/12/20 04:00 65 03/12/20 00:00 97.6 75 18 138/83 (101) 94 03/12/20 00:00 62 03/11/20 21:00 Room Air 03/11/20 20:00 98.3 76 20 140/84 (102) 93 03/11/20 20:00 76 03/11/20 16:00 73 03/11/20 16:00 98.0 78 18 139/81 (100) 93 03/11/20 12:00 97.4 79 18 152/88 (109) 93 03/11/20 10:02 136/75 03/11/20 10:01 75 136/75 03/11/20 10:00 67 Intake and Output 03/11/20 03/12/20 19:00 07:00 Intake Total 240 ml Balance 240 ml Intake Oral 240 ml # Voids 3 # Bowel Movements 1 Objective General Appearance: WD/WN, no apparent distress, elderly Serbian speaking female, awake, alert and forgetful Lines, tubes and drains: peripheral HEENT: normocephalic, atraumatic, anicteric, mucous membranes moist, PERRL, on RA Neck: non-tender Respiratory/Chest: chest wall non-tender, lungs clear with moderate air exchange , no respiratory distress, no accessory muscle use Cardiovascular/Chest: normal peripheral pulses, normal rate Abdomen: normal bowel sounds, non tender, soft Extremities: non-tender, normal inspection, no calf tenderness, normal capillary refill Skin Exam: warm/dry Neurologic: alert, responsive, normal mood/affect Musculoskeletal: atrophy - BLE Microbiology Date/Time Source Procedure Growth Status 03/09/20 10:30 Blood Blood Culture - Preliminary NO GROWTH AFTER 48 HOURS Resulted 03/09/20 10:20 Blood Blood Culture - Preliminary NO GROWTH AFTER 48 HOURS Resulted Laboratory Tests 03/11/20 10:00: White Blood Count 9.8, Red Blood Count 5.24, Hemoglobin 14.3, Hematocrit 41.7, Mean Corpuscular Volume 80, Mean Corpuscular Hemoglobin 27.3, Mean Corpuscular Hemoglobin Concent 34.3, Red Cell Distribution Width 14.0, Platelet Count 493H, Mean Platelet Volume 6.3L, Neutrophils (%) (Auto) 78.9H, Lymphocytes (%) (Auto) 12.7L, Monocytes (%) (Auto) 7.6, Eosinophils (%) (Auto) 0.0, Basophils (%) (Auto) 0.8, Sodium Level 141, Potassium Level 3.3L, Chloride Level 111H, Carbon Dioxide Level 20L, Anion Gap 10, Blood Urea Nitrogen 25H, Creatinine 0.7, Estimat Glomerular Filtration Rate > 60, Glucose Level 112H, Calcium Level 9.1, Phosphorus Level 3.2, Magnesium Level 2.2, Total Bilirubin 0.6, Direct Bilirubin 0.3, Aspartate Amino Transf (AST/SGOT) 66H, Alanine Aminotransferase (ALT/SGPT) 50, Alkaline Phosphatase 72, Total Protein 6.5, Albumin 2.2L, Globulin 4.3, Albumin/Globulin Ratio 0.5L 03/12/20 05:00: White Blood Count 7.7, Red Blood Count 4.31, Hemoglobin 11.9L, Hematocrit 36.3L, Mean Corpuscular Volume 84, Mean Corpuscular Hemoglobin 27.7, Mean Corpuscular Hemoglobin Concent 32.8, Red Cell Distribution Width 14.5, Platelet Count 417, Mean Platelet Volume 6.6, Neutrophils (%) (Auto) 79.5H, Lymphocytes (%) (Auto) 14.1L, Monocytes (%) (Auto) 5.9, Eosinophils (%) (Auto) 0.0, Basophils (%) (Auto) 0.5 Current Medications Medications (Trade) Dose Ordered Sig/Ra Route PRN Reason Start Time Stop Time Status Last Admin Dose Admin Acetaminophen (Tylenol) 650 mg Q4H PRN ORAL Mild Pain (Pain Scale 1-3) 03/06/20 21:30 04/05/20 21:29 Albuterol Sulfate (Proventil MDI) 2 puff Q4H PRN INH Shortness of Breath 03/06/20 21:30 06/04/20 21:29 Atorvastatin Calcium (Lipitor) 40 mg BEDTIME ORAL 03/07/20 21:00 06/05/20 20:59 03/11/20 21:43 Aztreonam 1 gm/ Dextrose 55 ml @ 110 mls/hr Q8HR IVPB 03/07/20 14:00 03/14/20 13:59 03/12/20 05:15 Dexamethasone Sodium Phosphate (Decadron 4mg/ml vial) 6 mg DAILY IVP 03/08/20 09:00 03/16/20 12:00 03/11/20 10:02 Dextrose (Dextrose 50%) 25 ml Q30M PRN IV Hypoglycemia 03/06/20 21:30 06/04/20 21:29 Dextrose (Dextrose 50%) 50 ml Q30M PRN IV Hypoglycemia 03/06/20 21:30 06/04/20 21:29 Diltiazem HCl (Cardizem ER) 180 mg DAILY ORAL 03/08/20 09:00 04/07/20 08:59 03/11/20 10:01 Diphenhydramine HCl (Benadryl) 25 mg Q6H PRN ORAL Itching/Pruritis 03/06/20 21:30 04/05/20 21:29 Donepezil HCl (Aricept) 10 mg QHS ORAL 03/07/20 21:00 04/06/20 20:59 03/11/20 21:42 Doxycycline Hyclate 100 mg/ Dextrose 110 ml @ 110 mls/hr Q12HR IV 03/07/20 21:00 03/14/20 20:59 03/11/20 21:42 Enoxaparin Sodium (Lovenox) 40 mg QHS SUBQ 03/12/20 21:00 06/10/20 20:59 Lisinopril (ZestriL) 10 mg DAILY ORAL 03/08/20 09:00 04/07/20 08:59 03/11/20 10:02 Ondansetron HCl (Zofran) 4 mg Q6H PRN IVP Nausea & Vomiting 03/06/20 21:30 04/05/20 21:29 Vancomycin HCl (Vanco pharmacy to dose) 1 ea DAILY PRN MISC Per rx protocol 03/07/20 20:45 04/06/20 20:44 Vancomycin HCl 750 mg/Sodium Chloride 275 ml @ 183.333 mls/hr Q12H IVPB 03/10/20 11:00 03/15/20 10:59 03/11/20 23:18 Assessment/Plan Assessment/Plan ASSESSMENT COVID 19 PNA Acute hypoxemic respiratory failure due to COVID 19 PNA Gram positive bacteremia Possible UTI Hx of HTN Dementia PLAN OF CARE tele isolation Date of sx onset: few days prior to presentation to ED on 03/07 Positive test: 03/07 rapid COVID 19 +, 03/07 COVID by PCR NGT O2 RA HFA s/p REM x 5 days ( 03/07 - 03/11 ) Dex Day# 6 ( 03/07 - ) DVT PPX: Lovenox D dimer 1.56 Trend CRP 17.9-> 4.2 CXR 03/09 Bilateral pulmonary opacities abx per ID recs, BCX + Staph epidermidis, prob contaminant ; ECHO with pEF 60, + echogenic material on post MV, likely calcification repeated BCX 03/09 NGTD monitor volumes and renal function Fup with consultants recs FC discuss GOC case discussed and evaluated by supervising physician Luly Koo NP Mar 12, 2020 09:29 Janes Oliva MD Mar 12, 2020 21:43
[2020-03-12 10:51] LABS: ANION GAP 9 mmol/L (5-15); BLOOD UREA NITROGEN 23 mg/dL (7-18); CALCIUM 8.8 MG/DL (8.5-10.1); CARBON DIOXIDE 19 MMOL/L (21-32); CHLORIDE 112 MMOL/L (98-107); CREATININE 0.8 MG/DL (0.55-1.30); POTASSIUM 3.8 MMOL/L (3.5-5.1); SODIUM 140 MMOL/L (136-145)
[2020-03-12 10:55] LABS: ALANINE AMINOTRANSFERASE 54 U/L (12-78); ALBUMIN 2.3 G/DL (3.4-5.0); ALBUMIN/GLOBULIN RATIO 0.5 (1.0-2.7); ALKALINE PHOSPHATASE 70 U/L (46-116); ASPARTATE AMINO TRANSFERASE 42 U/L (15-37); BILIRUBIN,DIRECT 0.2 MG/DL (0.0-0.3); BILIRUBIN,TOTAL 0.7 MG/DL (0.2-1.0); PHOSPHORUS 2.4 MG/DL (2.5-4.9)
[2020-03-12] MEDS: Lisinopril 10mg tab ORAL SCH (11:03)
[2020-03-12] MEDS: Doxycycline Hyclate 100 MG in D5W 110 ML IV SCH ×2 (11:07→20:59)
[2020-03-12 12:00] VITALS: BP 145/82
[2020-03-12] MEDS: Vancomycin 750mg/NS 275ml IVPB SCH ×2 (13:12)
--- NOTE | 2020-03-12 15:15 | General Progress Note ---
Subjective Date patient seen: Mar 12, 2020 Allergies: Coded Allergies: PENICILLINS (Verified Allergy, Unknown, 03/06/20) Subjective No acute events overnight per nursing. Patient feels well. Has now finished remdesivir. Continues to be on dexamethasone. With a 2 g hemoglobin drop. No signs of bleeding per nursing. Pending PT eval. No other complaints. Review of systems: Constitutional: Denies: chills, diaphoresis, fever, malaise, weakness, + fatigue HEENT: Denies: eye pain, blurred vision, double vision, ear pain, nose pain, throat pain, Cardiovascular: Denies: chest pain, edema, lightheadedness, palpitations Respiratory: Denies: cough, orthopnea, shortness of breath, SOB with excertion, SOB at rest, Gastrointestinal/Abdominal: Denies: abdominal pain, black stools, blood in stool, constipation, diarrhea, nausea, poor fluid intake vomiting, other Genitourinary: Denies: burning, discharge, frequency, Neurologic/Psychiatric: Denies: headache, numbness, paresthesia, new weakness, other Endocrine: Denies: excessive sweating, flushing, intolerance to cold, MSK: denies joint pains, swelling, stiffness Hematologic/Lymphatic: Denies: anemia, easy bleeding, easy bruising, Psych: no anxiety, depression, SI or HI Objective Last 24 Hour Vital Signs Date Time Temp Pulse Resp B/P (MAP) Pulse Ox O2 Delivery O2 Flow Rate FiO2 03/12/20 12:00 96.3 71 20 145/82 (103) 96 03/12/20 11:03 131/85 03/12/20 09:00 73 131/85 03/12/20 08:00 97.5 73 18 131/85 (100) 94 03/12/20 04:00 97.8 70 18 136/80 (98) 94 03/12/20 04:00 65 03/12/20 00:00 97.6 75 18 138/83 (101) 94 03/12/20 00:00 62 03/11/20 21:00 Room Air 03/11/20 20:00 98.3 76 20 140/84 (102) 93 03/11/20 20:00 76 03/11/20 16:00 73 03/11/20 16:00 98.0 78 18 139/81 (100) 93 Intake and Output 1/3/21 1/4/21 19:00 07:00 Intake Total 240 ml Balance 240 ml Intake Oral 240 ml # Voids 3 # Bowel Movements 1 Laboratory Tests 03/12/20 05:00: White Blood Count 7.7, Red Blood Count 4.31, Hemoglobin 11.9L, Hematocrit 36.3L, Mean Corpuscular Volume 84, Mean Corpuscular Hemoglobin 27.7, Mean Corpuscular Hemoglobin Concent 32.8, Red Cell Distribution Width 14.5, Platelet Count 417, Mean Platelet Volume 6.6, Neutrophils (%) (Auto) 79.5H, Lymphocytes (%) (Auto) 14.1L, Monocytes (%) (Auto) 5.9, Eosinophils (%) (Auto) 0.0, Basophils (%) (Auto) 0.5 03/12/20 10:33: Sodium Level 140, Potassium Level 3.8, Chloride Level 112H, Carbon Dioxide Level 19L, Anion Gap 9, Blood Urea Nitrogen 23H, Creatinine 0.8, Estimat Glomerular Filtration Rate > 60, Glucose Level 112H, Calcium Level 8.8, Phosphorus Level 2.4L, Magnesium Level 2.3, Total Bilirubin 0.7, Direct Bilirubin 0.2, Aspartate Amino Transf (AST/SGOT) 42H, Alanine Aminotransferase (ALT/SGPT) 54, Alkaline Phosphatase 70, Total Protein 6.6, Albumin 2.3L, Globulin 4.3, Albumin/Globulin Ratio 0.5L, Vancomycin Level Trough 15.1H Height (Feet): 5 Height (Inches): 5.00 Weight (Pounds): 150 Objective General: WDWN male in NAD, A&O x 4 on room air HEENT: Normocephalic cephalic atraumatic, pupils equal round reactive to light and accommodation, nares patent and no symmetrical, no tonsillar exudates, mucous membranes moist CV: Regular rate regular rhythm, no murmurs, rubs, or gallops Pulm: Lungs clear to auscultation bilaterally. No wheezes, rhonchi, or rales GI: Soft, nontender, nondistended, bowel sounds present Neuro: CN 2-12 intact bilaterally, no focal signs. Ext: No lower extremity edema bilaterally Skin: no rashes lesions or ulcers Msk: Joints symmetrical in upper extremity and lower extremity bilaterally, no joint swelling. Lymph: No lymphadenopathy in upper extremity and lower extremity Assessment/Plan Status: stable, progressing Assessment/Plan: 87 yo F w/ COVID PNA and Dementia: Assessment/Plan # Acute Hypoxemic Resp Failure 2/2 COVID - improving # Covid PNA w/ Associated Inflammation/GI symptoms/ #Elevated Liver Enzymes -Appreciate Pulm-Dr. Oliva -Consult to ID, Dr. Armando -Decadron 6mg IV q10 days -s/p course of Remdesivir -Continue AB w/ Aztreonam and Doxy per ID -Trend Inflammatory markers Q3 Days -02 Support; If Requires more than NC will get ABG - PT ordered - Pending #Acute anemia > no signs of blood loss - Recheck CBC - LDh, Haptoglobin - Fe panel, Ferritin - Retic count - Heme consult pending above #S. Epi bacteremia, suspect contaminant > Pulmonary source? > X2 blood cultures > TTE neg. Doubt endocarditis - appreciate ID recommendations - Abx per ID - Vanc per pharm (03/07 - ). May need 7-10 day course. Continue IV while in hospital and d/c on bactrim. D/w ID. - surveilance blood cultures - NGTD # Dementia -Monitor for acute agitation w/ COVID -Can consider Seroquel if needed for agitation FENPPX DVTPPX: lovenox Fluids: PRN Diet: yes Lines: PIV PT/OT: pending Code status: Full Dispo: home with HH vs. rehab Reason for Continued Hospitalization: acute hypoxic MIPS ([employer]-based Incentive Payment System) Applicable CPT: 31911, 19207 CHECK ALL THAT ARE MET: [] Measure #5 (CHF): All ages. Prescribe CARIE/ARB upon discharge for patients with left ventricular systolic dysfunction. If not, the reason is clearly documented in the medical chart [] Measure #8 (CHF): All ages. Prescribe a beta more upon discharge for patients with left ventricular systolic dysfunction. If not, the reason is clearly documented in the medical chart. [x] Measure #47: Advance care plan or surrogate decision maker documented in the medical record. [x] Measure #130 The provider has documented, updated, or reviewed the patients current medication list and has documented it in the patients note. [] Measure #374 (All): Send report to referring provider. [] Measure #407(Sepsis due to MSSA bacteremia): Age 18+ Patient treated with a beta-lactam antibiotic (Nafcillin, Oxacillin or Cefazolin) as definitive therapy. MEDICAL COMPLEXITYHigh complexity medical decision making (need 2/3 categories)Problem - need 4 points [x]Acute/new problem with new plan for workup (4 points, 1 max) [] Acute/new problem without additional workup (3 points, 1 max) [x] Unstable chronic problem actively being managed (2 point each, 2 max) [x] Stable chronic problem actively being managed (1 point each, 2 max) [] Self-limited/transient process (constipation, muscle ache, etc) (1 point each, 2 max) Data - need 4 points [x] Reviewed labs/imaging studies (1 points, 2 max) [x] Independent review of imaging (EKG, xrays, etc) (2 points, 2 max) [x] Discussed case with consult/other MD/RN (2 points, 2 max) High Risk - qualify if have one of the following: [] Severe exacerbation of acute problem, acute mental status change, IV narcotics, monitoring drug levels (vancomycin, INR, tacrolimus etc) I spent 38 minutes on this patient's case, and 21 mins was dedicated to counseling and/or care coordination. Discussed with DONYA hernandez, RN. Time of note may not reflect time of encounter Kristofer Barger D.O. Mar 12, 2020 15:15
[2020-03-12 16:00] VITALS: BP 139/86
[2020-03-12 18:08] LABS: % IRON SATURATION 38 % (15-50); IRON 69 ug/dL (50-175); TOTAL IRON BINDING CAPACITY 184 ug/dL (250-450)
[2020-03-12 18:24] LABS: FERRITIN 469 NG/ML (8-388); LACTATE DEHYDROGENASE 295 U/L (81-234)
[2020-03-12 18:34] LABS: HEMATOCRIT 43.2 % (37.0-47.0); HEMOGLOBIN 14.4 G/DL (12.0-16.0); MEAN CORPUSCULAR VOLUME 81 FL (80-99); PLATELET COUNT 542 K/UL (150-450); RED BLOOD COUNT 5.31 M/UL (4.20-5.40); RED CELL DISTRIBUTION WIDTH 13.8 % (11.6-14.8); WHITE BLOOD COUNT 12.8 K/UL (4.8-10.8)
[2020-03-12 20:00] VITALS: BP 140/84
[2020-03-12] MEDS: Enoxaparin 40mg Inj SUBQ SCH (20:56)
[2020-03-12] MEDS: Atorvastatin 20mg tab ORAL SCH (20:58)
[2020-03-12] MEDS: Donepezil 10mg tab ORAL SCH (20:58)
[2020-03-12] MEDS: Vancomycin 750 MG in D5W 275 ML IVPB SCH (22:35)
--- NOTE | 2020-03-12 22:59 | Neurology Progress Note ---
Interim History Interim History Interim History weak in bed pending PT Objective Physical Exam Last Vital Signs Date Time Temp Pulse Resp B/P (MAP) Pulse Ox O2 Delivery O2 Flow Rate FiO2 03/12/20 20:00 97.7 84 18 140/84 (102) 95 03/12/20 19:34 Room Air 03/09/20 09:00 2.0 Laboratory Tests Test 03/12/20 05:00 03/12/20 10:33 03/12/20 17:15 White Blood Count 7.7 K/UL (4.8-10.8) 12.8 K/UL (4.8-10.8) #H Red Blood Count 4.31 M/UL (4.20-5.40) 5.31 M/UL (4.20-5.40) Hemoglobin 11.9 G/DL (12.0-16.0) L 14.4 G/DL (12.0-16.0) Hematocrit 36.3 % (37.0-47.0) L 43.2 % (37.0-47.0) Mean Corpuscular Volume 84 FL (80-99) 81 FL (80-99) Mean Corpuscular Hemoglobin 27.7 PG (27.0-31.0) 27.2 PG (27.0-31.0) Mean Corpuscular Hemoglobin Concent 32.8 G/DL (32.0-36.0) 33.4 G/DL (32.0-36.0) Red Cell Distribution Width 14.5 % (11.6-14.8) 13.8 % (11.6-14.8) Platelet Count 417 K/UL (150-450) 542 K/UL (150-450) H Mean Platelet Volume 6.6 FL (6.5-10.1) 6.4 FL (6.5-10.1) L Neutrophils (%) (Auto) 79.5 % (45.0-75.0) H % (45.0-75.0) Lymphocytes (%) (Auto) 14.1 % (20.0-45.0) L % (20.0-45.0) Monocytes (%) (Auto) 5.9 % (1.0-10.0) % (1.0-10.0) Eosinophils (%) (Auto) 0.0 % (0.0-3.0) % (0.0-3.0) Basophils (%) (Auto) 0.5 % (0.0-2.0) % (0.0-2.0) Sodium Level 140 MMOL/L (136-145) Potassium Level 3.8 MMOL/L (3.5-5.1) Chloride Level 112 MMOL/L (98-107) H Carbon Dioxide Level 19 MMOL/L (21-32) L Anion Gap 9 mmol/L (5-15) Blood Urea Nitrogen 23 mg/dL (7-18) H Creatinine 0.8 MG/DL (0.55-1.30) Estimat Glomerular Filtration Rate > 60 mL/min (>60) Glucose Level 112 MG/DL (74-106) H Calcium Level 8.8 MG/DL (8.5-10.1) Phosphorus Level 2.4 MG/DL (2.5-4.9) L Magnesium Level 2.3 MG/DL (1.8-2.4) Total Bilirubin 0.7 MG/DL (0.2-1.0) Direct Bilirubin 0.2 MG/DL (0.0-0.3) Aspartate Amino Transf (AST/SGOT) 42 U/L (15-37) H Alanine Aminotransferase (ALT/SGPT) 54 U/L (12-78) Alkaline Phosphatase 70 U/L (46-116) Total Protein 6.6 G/DL (6.4-8.2) Albumin 2.3 G/DL (3.4-5.0) L Globulin 4.3 g/dL Albumin/Globulin Ratio 0.5 (1.0-2.7) L Vancomycin Level Trough 15.1 ug/mL (5.0-12.0) H Differential Total Cells Counted 100 Neutrophils % (Manual) 91 % (45-75) H Lymphocytes % (Manual) 4 % (20-45) L Monocytes % (Manual) 2 % (1-10) Eosinophils % (Manual) 0 % (0-3) Basophils % (Manual) 0 % (0-2) Band Neutrophils 3 % (0-8) Platelet Estimate Increased H Platelet Morphology Normal Red Blood Cell Morphology Normal Reticulocyte Count 7.0 % (0.5-2.0) H Haptoglobin Pending Iron Level 69 ug/dL (50-175) Total Iron Binding Capacity 184 ug/dL (250-450) L Percent Iron Saturation 38 % (15-50) Unsaturated Iron Binding 115 ug/dL (112-346) Ferritin 469 NG/ML (8-388) H Lactate Dehydrogenase 295 U/L (81-234) H Head: normocophalic Neck: no rigidity EENT: benign Neurologic Exam Objective somnolent, open eyes moves all 4 nc at abd soft Impression/Recommendations Problems: (1) Hypoxia (2) COVID-19 (3) Dyspnea (4) Respiratory distress (5) Altered mental status Status: stable, progressing Diagnostic Impression acute encephalopathy 2/2 covid dementia covid 19 delirium precautions for now covid support pt as able Rob Pascual MD Mar 12, 2020 22:59
[2020-03-13] VITALS: BP 134/85
[2020-03-13 04:00] VITALS: BP 132/78
[2020-03-13] MEDS: Aztreonam Inj 1 GM in D5W 55 ML IVPB SCH ×2 (05:12→15:42)
[2020-03-13 07:54] LABS: BASOPHILS % (AUTO) 0.5 % (0.0-2.0); HEMATOCRIT 39.6 % (37.0-47.0); MEAN CORPUSCULAR VOLUME 77 FL (80-99); NEUTROPHILS % (AUTO) 80.6 % (45.0-75.0); PLATELET COUNT 483 K/UL (150-450); RED BLOOD COUNT 5.12 M/UL (4.20-5.40); RED CELL DISTRIBUTION WIDTH 15.3 % (11.6-14.8); WHITE BLOOD COUNT 8.5 K/UL (4.8-10.8)
[2020-03-13 08:00] VITALS: BP 132/78
[2020-03-13 08:15] LABS: PHOSPHORUS 2.7 MG/DL (2.5-4.9)
--- NOTE | 2020-03-13 08:52 | Pulmonology Progress Note ---
Subjective Allergies: Coded Allergies: PENICILLINS (Verified Allergy, Unknown, 03/06/20) Subjective on RA, no resp distress denies CP no fevers, no leukocytosis Objective Last 24 Hour Vital Signs Date Time Temp Pulse Resp B/P (MAP) Pulse Ox O2 Delivery O2 Flow Rate FiO2 03/13/20 04:00 74 03/13/20 04:00 97.8 78 18 132/78 (96) 95 03/13/20 00:00 71 03/13/20 00:00 97.6 74 18 134/85 (101) 94 03/12/20 20:00 97.7 84 18 140/84 (102) 95 03/12/20 20:00 85 03/12/20 19:34 Room Air 03/12/20 16:00 82 03/12/20 16:00 97.5 75 20 139/86 (103) 96 03/12/20 12:00 92 03/12/20 12:00 96.3 71 20 145/82 (103) 96 03/12/20 11:03 131/85 03/12/20 09:00 Room Air 03/12/20 09:00 73 131/85 Intake and Output0 03/12/20 03/13/20 19:00 07:00 Intake Total 500 ml 360 ml Output Total 700 ml Balance 500 ml -340 ml Intake Oral 500 ml 360 ml Output Urine Total 700 ml # Voids 2 2 Objective General Appearance: WD/WN, no apparent distress, elderly Telugu speaking female, awake, alert and forgetful Lines, tubes and drains: peripheral HEENT: normocephalic, atraumatic, anicteric, mucous membranes moist, PERRL, on RA Neck: non-tender Respiratory/Chest: chest wall non-tender, lungs clear with moderate air exchange , no respiratory distress, no accessory muscle use Cardiovascular/Chest: normal peripheral pulses, normal rate Abdomen: normal bowel sounds, non tender, soft Extremities: non-tender, normal inspection, no calf tenderness, normal capillary refill Skin Exam: warm/dry Neurologic: alert, responsive, normal mood/affect Musculoskeletal: atrophy - BLE Laboratory Tests 03/12/20 10:33: Sodium Level 140, Potassium Level 3.8, Chloride Level 112H, Carbon Dioxide Level 19L, Anion Gap 9, Blood Urea Nitrogen 23H, Creatinine 0.8, Estimat Glomerular Filtration Rate > 60, Glucose Level 112H, Calcium Level 8.8, Phosphorus Level 2.4L, Magnesium Level 2.3, Total Bilirubin 0.7, Direct Bilirubin 0.2, Aspartate Amino Transf (AST/SGOT) 42H, Alanine Aminotransferase (ALT/SGPT) 54, Alkaline Phosphatase 70, Total Protein 6.6, Albumin 2.3L, Globulin 4.3, Albumin/Globulin Ratio 0.5L, Vancomycin Level Trough 15.1H 03/12/20 17:15: White Blood Count 12.8#H, Red Blood Count 5.31, Hemoglobin 14.4, Hematocrit 43.2, Mean Corpuscular Volume 81, Mean Corpuscular Hemoglobin 27.2, Mean Corpuscular Hemoglobin Concent 33.4, Red Cell Distribution Width 13.8, Platelet Count 542H, Mean Platelet Volume 6.4L, Neutrophils (%) (Auto) , Lymphocytes (%) (Auto) , Monocytes (%) (Auto) , Eosinophils (%) (Auto) , Basophils (%) (Auto) , Differential Total Cells Counted 100, Neutrophils % (Manual) 91H, Lymphocytes % (Manual) 4L, Monocytes % (Manual) 2, Eosinophils % (Manual) 0, Basophils % (Manual) 0, Band Neutrophils 3, Platelet Estimate IncreasedH, Platelet Morpholog y Normal, Red Blood Cell Morphology Normal, Reticulocyte Count 7.0H, Haptoglobin [Pending], Iron Level 69, Total Iron Binding Capacity 184L, Percent Iron Saturation 38, Unsaturated Iron Binding 115, Ferritin 469H, Lactate Dehydrogenase 295H 03/13/20 06:56: Phosphorus Level 2.7, Magnesium Level 2.3, White Blood Count 8.5, Red Blood Count 5.12, Hemoglobin 14.0, Hematocrit 39.6, Mean Corpuscular Volume 77L, Mean Corpuscular Hemoglobin 27.3, Mean Corpuscular Hemoglobin Concent 35.4, Red Cell Distribution Width 15.3H, Platelet Count 483H, Mean Platelet Volume 6.8, Neutrophils (%) (Auto) 80.6H, Lymphocytes (%) (Auto) 12.0L, Monocytes (%) (Auto) 7.0, Eosinophils (%) (Auto) 0.0, Basophils (%) (Auto) 0.5 Current Medications Medications (Trade) Dose Ordered Sig/Ra Route PRN Reason Start Time Stop Time Status Last Admin Dose Admin Acetaminophen (Tylenol) 650 mg Q4H PRN ORAL Mild Pain (Pain Scale 1-3) 03/06/20 21:30 04/05/20 21:29 Albuterol Sulfate (Proventil MDI) 2 puff Q4H PRN INH Shortness of Breath 03/06/20 21:30 06/04/20 21:29 Atorvastatin Calcium (Lipitor) 40 mg BEDTIME ORAL 03/07/20 21:00 06/05/20 20:59 03/12/20 20:58 Aztreonam 1 gm/ Dextrose 55 ml @ 110 mls/hr Q8HR IVPB 03/07/20 14:00 03/14/20 13:59 03/13/20 05:12 Dexamethasone Sodium Phosphate (Decadron 4mg/ml vial) 6 mg DAILY IVP 03/08/20 09:00 03/16/20 12:00 03/12/20 11:00 Dextrose (Dextrose 50%) 25 ml Q30M PRN IV Hypoglycemia 03/06/20 21:30 06/04/20 21:29 Dextrose (Dextrose 50%) 50 ml Q30M PRN IV Hypoglycemia 03/06/20 21:30 06/04/20 21:29 Diltiazem HCl (Cardizem ER) 180 mg DAILY ORAL 03/08/20 09:00 04/07/20 08:59 03/12/20 09:00 Diphenhydramine HCl (Benadryl) 25 mg Q6H PRN ORAL Itching/Pruritis 03/06/20 21:30 04/05/20 21:29 Donepezil HCl (Aricept) 10 mg QHS ORAL 03/07/20 21:00 04/06/20 20:59 03/12/20 20:58 Doxycycline Hyclate 100 mg/ Dextrose 110 ml @ 110 mls/hr Q12HR IV 03/07/20 21:00 03/14/20 20:59 03/12/20 20:59 Enoxaparin Sodium (Lovenox) 40 mg QHS SUBQ 03/12/20 21:00 06/10/20 20:59 03/12/20 20:56 Lisinopril (ZestriL) 10 mg DAILY ORAL 03/08/20 09:00 04/07/20 08:59 03/12/20 11:03 Ondansetron HCl (Zofran) 4 mg Q6H PRN IVP Nausea & Vomiting 03/06/20 21:30 04/05/20 21:29 Vancomycin HCl (Vanco pharmacy to dose) 1 ea DAILY PRN MISC Per rx protocol 03/07/20 20:45 04/06/20 20:44 Vancomycin HCl 750 mg/Dextrose 275 ml @ 183.333 mls/hr Q12HR@1100,2300 IVPB 03/12/20 23:00 03/17/20 22:59 03/12/20 22:35 Assessment/Plan Assessment/Plan ASSESSMENT COVID 19 PNA Acute hypoxemic respiratory failure due to COVID 19 PNA Gram positive bacteremia Possible UTI Hx of HTN Dementia PLAN OF CARE tele isolation Date of sx onset: few days prior to presentation to ED on 03/07 Positive test: 03/07 rapid COVID 19 +, 03/07 COVID by PCR NGT O2 RA HFA s/p REM x 5 days ( 03/07 - 03/11 ) Dex Day# 7 ( 03/07 - ) DVT PPX: Lovenox D dimer 1.56 Trend CRP 17.9-> 4.2 CXR 03/09 Bilateral pulmonary opacities abx per ID recs, BCX + Staph epidermidis, prob contaminant ; ECHO with pEF 60, + echogenic material on post MV, likely calcification repeated BCX 03/09 NGTD monitor volumes and renal function Fup with consultants recs FC discuss GOC case discussed and evaluated by supervising physician Luly Koo NP Mar 13, 2020 08:51
[2020-03-13] MEDS: Doxycycline Hyclate 100 MG in D5W 110 ML IV SCH (10:19)
[2020-03-13] MEDS: dilTIAZem HCl ER 180mg cap ORAL SCH (10:20)
[2020-03-13] MEDS: Lisinopril 10mg tab ORAL SCH (10:20)
[2020-03-13 12:00] VITALS: BP 123/70
[2020-03-13] MEDS: Vancomycin 750 MG in D5W 275 ML IVPB SCH (12:57)
[2020-03-13 16:00] VITALS: BP 127/73
--- NOTE | 2020-03-13 16:37 | Infectious Diseases Prog Note ---
Assessment/Plan Assessment/Plan ASSESSMENT AND PLAN: 1. covid-19 infection, pna, ? cap, ? instructional specialist bacteremia vs contaminant, ? uti, lgt - dexamethasone - s/p remdesivir - aztreonam and doxycycline - day # 09/12 - vancomycin for instructional specialist blood cultures - day # 09/12 - f/u blood cultures negative, TTE without vegetations - monitor labs 2. Hypertension. 3. Blood pressure treatment per primary care team. 4. Dementia. 5. Questionable dyslipidemia. 6. Allergies to penicillin. 7. Social history is negative. 8. Family history is noncontributory. 9. MAR was noted. 10. Case was discussed with RN. Subjective Constitutional: Denies: fever HEENT: Denies: congestion Respiratory: Denies: shortness of breath Cardiovascular: Denies: chest pain Gastrointestinal/Abdominal: Denies: nausea Genitourinary: Reports: other - no sob Neurologic: Denies: headache Psychiatric: Denies: depression Skin: Denies: rash Hematologic: Denies: bleeding Musculoskeletal: Denies: pain Allergies: Coded Allergies: PENICILLINS (Verified Allergy, Unknown, 03/06/20) Objective Last 24 Hour Vital Signs Date Time Temp Pulse Resp B/P (MAP) Pulse Ox O2 Delivery O2 Flow Rate FiO2 03/13/20 10:20 132/78 03/13/20 10:20 73 132/78 03/13/20 04:00 74 03/13/20 04:00 97.8 78 18 132/78 (96) 95 03/13/20 00:00 71 03/13/20 00:00 97.6 74 18 134/85 (101) 94 03/12/20 20:00 97.7 84 18 140/84 (102) 95 03/12/20 20:00 85 03/12/20 19:34 Room Air Height (Feet): 5 Height (Inches): 5.00 Weight (Pounds): 150 General Appearance: no acute distress HEENT: normocephalic, atraumatic, anicteric, mucous membranes moist Respiratory/Chest: crackles/rales, rhonchi - bilaterally Cardiovascular: normal rate, regular rhythm, no gallop/murmur, no JVD Abdomen: normal bowel sounds, soft, non tender, no organomegaly, non distended Genitourinary: other - no anderson Extremities: no cyanosis Skin: no rash Neurologic/Psychiatric: lock technician II-XII grossly normal, alert, oriented x 3 Lymphatic: no neck adenopathy Musculoskeletal: no effusion Chest x-ray - 03/09/20 - (date corrected from previous note) FINDINGS: Lungs: Bilateral pulmonary opacities that may be from edema and/or pneumonia. Reduced lung volumes. Pleural space: Unremarkable. No pneumothorax. Heart: Large cardiomediastinal silhouette. Mediastinum: See above. Bones/joints: No acute fracture. Upper abdomen: Surgical clips in the right upper abdomen. Other findings: 03/09/20 at 1330. IMPRESSION: Bilateral pulmonary opacities that may be from edema and/or pneumonia. Microbiology Date/Time Source Procedure Growth Status 03/09/20 10:30 Blood Blood Culture - Preliminary NO GROWTH AFTER 72 HOURS Resulted 03/07/20 05:50 Nasopharynx Coronavirus COVID-19 PCR ([facility]) - Final Complete Laboratory Tests Test 03/12/20 17:15 03/13/20 06:56 White Blood Count 12.8 K/UL (4.8-10.8) #H 8.5 K/UL (4.8-10.8) Red Blood Count 5.31 M/UL (4.20-5.40) 5.12 M/UL (4.20-5.40) Hemoglobin 14.4 G/DL (12.0-16.0) 14.0 G/DL (12.0-16.0) Hematocrit 43.2 % (37.0-47.0) 39.6 % (37.0-47.0) Mean Corpuscular Volume 81 FL (80-99) 77 FL (80-99) L Mean Corpuscular Hemoglobin 27.2 PG (27.0-31.0) 27.3 PG (27.0-31.0) Mean Corpuscular Hemoglobin Concent 33.4 G/DL (32.0-36.0) 35.4 G/DL (32.0-36.0) Red Cell Distribution Width 13.8 % (11.6-14.8) 15.3 % (11.6-14.8) H Platelet Count 542 K/UL (150-450) H 483 K/UL (150-450) H Mean Platelet Volume 6.4 FL (6.5-10.1) L 6.8 FL (6.5-10.1) Neutrophils (%) (Auto) % (45.0-75.0) 80.6 % (45.0-75.0) H Lymphocytes (%) (Auto) % (20.0-45.0) 12.0 % (20.0-45.0) L Monocytes (%) (Auto) % (1.0-10.0) 7.0 % (1.0-10.0) Eosinophils (%) (Auto) % (0.0-3.0) 0.0 % (0.0-3.0) Basophils (%) (Auto) % (0.0-2.0) 0.5 % (0.0-2.0) Differential Total Cells Counted 100 Neutrophils % (Manual) 91 % (45-75) H Lymphocytes % (Manual) 4 % (20-45) L Monocytes % (Manual) 2 % (1-10) Eosinophils % (Manual) 0 % (0-3) Basophils % (Manual) 0 % (0-2) Band Neutrophils 3 % (0-8) Platelet Estimate Increased H Platelet Morphology Normal Red Blood Cell Morphology Normal Reticulocyte Count 7.0 % (0.5-2.0) H Haptoglobin Pending Iron Level 69 ug/dL (50-175) Total Iron Binding Capacity 184 ug/dL (250-450) L Percent Iron Saturation 38 % (15-50) Unsaturated Iron Binding 115 ug/dL (112-346) Ferritin 469 NG/ML (8-388) H Lactate Dehydrogenase 295 U/L (81-234) H Phosphorus Level 2.7 MG/DL (2.5-4.9) Magnesium Level 2.3 MG/DL (1.8-2.4) Current Medications Medications (Trade) Dose Ordered Sig/Ra Route PRN Reason Start Time Stop Time Status Last Admin Dose Admin Acetaminophen (Tylenol) 650 mg Q4H PRN ORAL Mild Pain (Pain Scale 1-3) 03/06/20 21:30 04/05/20 21:29 Albuterol Sulfate (Proventil MDI) 2 puff Q4H PRN INH Shortness of Breath 03/06/20 21:30 06/04/20 21:29 Atorvastatin Calcium (Lipitor) 40 mg BEDTIME ORAL 03/07/20 21:00 06/05/20 20:59 03/12/20 20:58 Aztreonam 1 gm/ Dextrose 55 ml @ 110 mls/hr Q8HR IVPB 03/07/20 14:00 03/14/20 13:59 03/13/20 15:42 Dexamethasone Sodium Phosphate (Decadron 4mg/ml vial) 6 mg DAILY IVP 03/08/20 09:00 03/16/20 12:00 03/13/20 10:19 Dextrose (Dextrose 50%) 25 ml Q30M PRN IV Hypoglycemia 03/06/20 21:30 06/04/20 21:29 Dextrose (Dextrose 50%) 50 ml Q30M PRN IV Hypoglycemia 03/06/20 21:30 06/04/20 21:29 Diltiazem HCl (Cardizem ER) 180 mg DAILY ORAL 03/08/20 09:00 04/07/20 08:59 03/13/20 10:20 Diphenhydramine HCl (Benadryl) 25 mg Q6H PRN ORAL Itching/Pruritis 03/06/20 21:30 04/05/20 21:29 Donepezil HCl (Aricept) 10 mg QHS ORAL 03/07/20 21:00 04/06/20 20:59 03/12/20 20:58 Doxycycline Hyclate 100 mg/ Dextrose 110 ml @ 110 mls/hr Q12HR IV 03/07/20 21:00 03/14/20 20:59 03/13/20 10:19 Enoxaparin Sodium (Lovenox) 40 mg QHS SUBQ 03/12/20 21:00 06/10/20 20:59 03/12/20 20:56 Lisinopril (ZestriL) 10 mg DAILY ORAL 03/08/20 09:00 04/07/20 08:59 03/13/20 10:20 Ondansetron HCl (Zofran) 4 mg Q6H PRN IVP Nausea & Vomiting 03/06/20 21:30 04/05/20 21:29 Vancomycin HCl (Vanco pharmacy to dose) 1 ea DAILY PRN MISC Per rx protocol 03/07/20 20:45 04/06/20 20:44 Vancomycin HCl 750 mg/Dextrose 275 ml @ 183.333 mls/hr Q12HR@1100,2300 IVPB 03/12/20 23:00 03/17/20 22:59 03/13/20 12:57 Jigna Weston MD Mar 13, 2020 16:37
--- NOTE | 2020-03-13 17:29 | General Progress Note ---
Subjective Date patient seen: Mar 13, 2020 ROS Limited/Unobtainable: No Allergies: Coded Allergies: PENICILLINS (Verified Allergy, Unknown, 03/06/20) Subjective No acute events overnight per nursing. Patient feeling well but reports generalized body pain. Last day of IV antibiotics. Hgb stabilized back to baseline. Review of systems: Constitutional: Denies: chills, diaphoresis, fever, malaise, weakness, + fatigue HEENT: Denies: eye pain, blurred vision, double vision, ear pain, nose pain, throat pain, Cardiovascular: Denies: chest pain, edema, lightheadedness, palpitations Respiratory: Denies: cough, orthopnea, shortness of breath, SOB with excertion, SOB at rest, Gastrointestinal/Abdominal: Denies: abdominal pain, black stools, blood in stool, constipation, diarrhea, nausea, poor fluid intake vomiting, other Genitourinary: Denies: burning, discharge, frequency, Neurologic/Psychiatric: Denies: headache, numbness, paresthesia, new weakness, other Endocrine: Denies: excessive sweating, flushing, intolerance to cold, MSK: denies joint pains, swelling, stiffness Hematologic/Lymphatic: Denies: anemia, easy bleeding, easy bruising, Psych: no anxiety, depression, SI or HI Objective Last 24 Hour Vital Signs Date Time Temp Pulse Resp B/P (MAP) Pulse Ox O2 Delivery O2 Flow Rate FiO2 03/13/20 10:20 132/78 03/13/20 10:20 73 132/78 03/13/20 04:00 74 03/13/20 04:00 97.8 78 18 132/78 (96) 95 03/13/20 00:00 71 03/13/20 00:00 97.6 74 18 134/85 (101) 94 03/12/20 20:00 97.7 84 18 140/84 (102) 95 03/12/20 20:00 85 03/12/20 19:34 Room Air Intake and Output 03/12/20 03/13/20 19:00 07:00 Intake Total 500 ml 360 ml Output Total 700 ml Balance 500 ml -340 ml Intake Oral 500 ml 360 ml Output Urine Total 700 ml # Voids 2 2 Laboratory Tests 03/13/20 06:56: White Blood Count 8.5, Red Blood Count 5.12, Hemoglobin 14.0, Hematocrit 39.6, Mean Corpuscular Volume 77L, Mean Corpuscular Hemoglobin 27.3, Mean Corpuscular Hemoglobin Concent 35.4, Red Cell Distribution Width 15.3H, Platelet Count 483H, Mean Platelet Volume 6.8, Neutrophils (%) (Auto) 80.6H, Lymphocytes (%) (Auto) 12.0L, Monocytes (%) (Auto) 7.0, Eosinophils (%) (Auto) 0.0, Basophils (%) (Auto) 0.5, Phosphorus Level 2.7, Magnesium Level 2.3 Height (Feet): 5 Height (Inches): 5.00 Weight (Pounds): 150 Objective General: WDWN female in NAD, A&O x 4 on room air, pleasant, conversant HEENT: Normocephalic cephalic atraumatic, pupils equal round reactive to light and accommodation, nares patent and no symmetrical, no tonsillar exudates, mucous membranes moist CV: Regular rate regular rhythm, no murmurs, rubs, or gallops Pulm: Lungs clear to auscultation bilaterally. No wheezes, rhonchi, or rales GI: Soft, nontender, nondistended, bowel sounds present Neuro: CN 2-12 intact bilaterally, no focal signs. Ext: No lower extremity edema bilaterally Skin: no rashes lesions or ulcers Msk: Joints symmetrical in upper extremity and lower extremity bilaterally, no joint swelling. Lymph: No lymphadenopathy in upper extremity and lower extremity Assessment/Plan Status: stable, progressing Assessment/Plan: 87 yo F w/ COVID PNA and Dementia: Assessment/Plan # Acute Hypoxemic Resp Failure 2/2 COVID - resolved # Covid PNA w/ Associated Inflammation/GI symptoms #Elevated Liver Enzymes -Appreciate Pulm-Dr. Oliva -Consult to ID, Dr. Armando -Decadron 6mg IV q10 days -s/p course of Remdesivir -Continue AB w/ Aztreonam and Doxy per ID -Trend Inflammatory markers Q3 Days -02 Support; If Requires more than NC will get ABG - PT ordered - Pending #Acute anemia - resolved. back to baseline. Likely lab error? > no signs of blood loss - LDH, Haptoglobin - Fe panel, Ferritin - Retic count - Heme consult pending above #S. Epi bacteremia, suspect contaminant > Pulmonary source? > X2 blood cultures > TTE neg. Doubt endocarditis - appreciate ID recommendations - Abx per ID - Vanc per pharm (03/07 - 03/13). May need 7-10 day course. Continue IV while in hospital and d/c on bactrim. D/w ID. - surveillance blood cultures - NGTD # Dementia -Monitor for acute agitation w/ COVID -Can consider Seroquel if needed for agitation FENPPX DVTPPX: lovenox Fluids: PRN Diet: yes Lines: PIV PT/OT: pending Code status: Full Dispo: home with HH for PT likely tomorrow Reason for Continued Hospitalization: IV abx, PT eval MIPS ([employer]-based Incentive Payment System) Applicable CPT: 47167, 73807 CHECK ALL THAT ARE MET: [] Measure #5 (CHF): All ages. Prescribe CARIE/ARB upon discharge for patients with left ventricular systolic dysfunction. If not, the reason is clearly documented in the medical chart [] Measure #8 (CHF): All ages. Prescribe a beta more upon discharge for patients with left ventricular systolic dysfunction. If not, the reason is clearly documented in the medical chart. [x] Measure #47: Advance care plan or surrogate decision maker documented in the medical record. [x] Measure #130 The provider has documented, updated, or reviewed the jayesh ts current medication list and has documented it in the patients note. [] Measure #374 (All): Send report to referring provider. [] Measure #407(Sepsis due to MSSA bacteremia): Age 18+ Patient treated with a beta-lactam antibiotic (Nafcillin, Oxacillin or Cefazolin) as definitive therapy. MEDICAL COMPLEXITYHigh complexity medical decision making (need 2/3 categories)Problem - need 4 points [x]Acute/new problem with new plan for workup (4 points, 1 max) [] Acute/new problem without additional workup (3 points, 1 max) [x] Unstable chronic problem actively being managed (2 point each, 2 max) [x] Stable chronic problem actively being managed (1 point each, 2 max) [] Self-limited/transient process (constipation, muscle ache, etc) (1 point each, 2 max) Data - need 4 points [x] Reviewed labs/imaging studies (1 points, 2 max) [x] Independent review of imaging (EKG, xrays, etc) (2 points, 2 max) [x] Discussed case with consult/other MD/RN (2 points, 2 max) High Risk - qualify if have one of the following: [] Severe exacerbation of acute problem, acute mental status change, IV narcotics, monitoring drug levels (vancomycin, INR, tacrolimus etc) I spent 37 minutes on this patient's case, and 24 mins was dedicated to counseling and/or care coordination. Discussed with DONYA hernandez, RN. Time of note may not reflect time of encounter Dustin Del Valle M.D. Mar 13, 2020 17:29
[2020-03-13 20:00] VITALS: BP 133/86
--- NOTE | 2020-03-13 21:43 | Neurology Progress Note ---
Interim History Interim History ROS Limited/Unobtainable: No Interim History no new deficits Objective Physical Exam Last Vital Signs Date Time Temp Pulse Resp B/P (MAP) Pulse Ox O2 Delivery O2 Flow Rate FiO2 03/13/20 20:00 97.9 82 16 133/86 (102) 93 03/13/20 09:00 Room Air 03/09/20 09:00 2.0 Laboratory Tests Test 03/13/20 06:56 White Blood Count 8.5 K/UL (4.8-10.8) Red Blood Count 5.12 M/UL (4.20-5.40) Hemoglobin 14.0 G/DL (12.0-16.0) Hematocrit 39.6 % (37.0-47.0) Mean Corpuscular Volume 77 FL (80-99) L Mean Corpuscular Hemoglobin 27.3 PG (27.0-31.0) Mean Corpuscular Hemoglobin Concent 35.4 G/DL (32.0-36.0) Red Cell Distribution Width 15.3 % (11.6-14.8) H Platelet Count 483 K/UL (150-450) H Mean Platelet Volume 6.8 FL (6.5-10.1) Neutrophils (%) (Auto) 80.6 % (45.0-75.0) H Lymphocytes (%) (Auto) 12.0 % (20.0-45.0) L Monocytes (%) (Auto) 7.0 % (1.0-10.0) Eosinophils (%) (Auto) 0.0 % (0.0-3.0) Basophils (%) (Auto) 0.5 % (0.0-2.0) Phosphorus Level 2.7 MG/DL (2.5-4.9) Magnesium Level 2.3 MG/DL (1.8-2.4) Head: normocophalic Neck: no rigidity EENT: benign Neurologic Exam Objective somnolent, open eyes moves all 4 nc at abd soft Impression/Recommendations Problems: (1) Hypoxia (2) COVID-19 (3) Dyspnea (4) Respiratory distress (5) Altered mental status Status: stable, progressing Diagnostic Impression acute encephalopathy 2/2 covid dementia covid 19 delirium precautions for now covid support pt as able Rob Pascual MD Mar 13, 2020 21:43
[2020-03-13] MEDS: Atorvastatin 20mg tab ORAL SCH (22:38)
[2020-03-13] MEDS: Donepezil 10mg tab ORAL SCH (22:39)
[2020-03-13] MEDS: Enoxaparin 40mg Inj SUBQ SCH (22:39)
[2020-03-14] VITALS: BP 130/77
[2020-03-14 04:00] VITALS: BP 117/66
[2020-03-14 08:00] VITALS: BP 135/70
[2020-03-14] MEDS: dilTIAZem HCl ER 180mg cap ORAL SCH (09:31)
[2020-03-14] MEDS: Lisinopril 10mg tab ORAL SCH (09:31)
[2020-03-14 09:52] LABS: BASOPHILS % (AUTO) 0.5 % (0.0-2.0); HEMATOCRIT 40.6 % (37.0-47.0); HEMOGLOBIN 14.1 G/DL (12.0-16.0); MEAN CORPUSCULAR VOLUME 78 FL (80-99); MONOCYTES % (AUTO) 7.1 % (1.0-10.0); NEUTROPHILS % (AUTO) 79.3 % (45.0-75.0); PLATELET COUNT 448 K/UL (150-450); RED BLOOD COUNT 5.19 M/UL (4.20-5.40); RED CELL DISTRIBUTION WIDTH 15.4 % (11.6-14.8); WHITE BLOOD COUNT 8.2 K/UL (4.8-10.8)
--- NOTE | 2020-03-14 10:05 | General Progress Note ---
Subjective Constitutional: Reports: weakness Allergies: Coded Allergies: PENICILLINS (Verified Allergy, Unknown, 03/06/20) All Systems: reviewed and negative except above Subjective o2nc sleepy Objective Last 24 Hour Vital Signs Date Time Temp Pulse Resp B/P (MAP) Pulse Ox O2 Delivery O2 Flow Rate FiO2 03/14/20 09:31 135/70 03/14/20 09:31 78 135/70 03/14/20 08:00 97.9 78 16 135/70 (91) 96 03/14/20 04:00 62 03/14/20 04:00 98.1 80 16 117/66 (83) 95 03/14/20 00:00 98.4 77 16 130/77 (94) 94 03/14/20 00:00 66 03/13/20 21:00 Room Air 03/13/20 20:00 97.9 82 16 133/86 (102) 93 03/13/20 20:00 70 03/13/20 16:00 75 03/13/20 16:00 96.6 74 16 127/73 (91) 94 03/13/20 12:00 98.2 80 18 123/70 (87) 98 03/13/20 12:00 68 03/13/20 10:20 132/78 03/13/20 10:20 73 132/78 Intake and Output 03/13/20 03/14/20 19:00 07:00 Intake Total 280 ml Output Total 1200 ml Balance -920 ml Intake Oral 280 ml Output Urine Total 1200 ml # Voids 4 1 Laboratory Tests 03/14/20 09:20: White Blood Count 8.2, Red Blood Count 5.19, Hemoglobin 14.1, Hematocrit 40.6, Mean Corpuscular Volume 78L, Mean Corpuscular Hemoglobin 27.3, Mean Corpuscular Hemoglobin Concent 34.8, Red Cell Distribution Width 15.4H, Platelet Count 448, Mean Platelet Volume 6.8, Neutrophils (%) (Auto) 79.3H, Lymphocytes (%) (Auto) 13.0L, Monocytes (%) (Auto) 7.1, Eosinophils (%) (Auto) 0.0, Basophils (%) (Auto) 0.5, Sodium Level [Pending], Potassium Level [Pending], Chloride Level [Pending], Carbon Dioxide Level [Pending], Blood Urea Nitrogen [Pending], Creatinine [Pending], Estimat Glomerular Filtration Rate [Pending], Glucose Level [Pending], Calcium Level [Pending], Total Bilirubin [Pending], Aspartate Amino Transf (AST/SGOT) [Pending], Alanine Aminotransferase (ALT/SGPT) [Pending], Alkaline Phosphatase [Pending], C-Reactive Protein, Quantitative [Pending], Total Protein [Pending], Albumin [Pending], Globulin [Pending] Height (Feet): 5 Height (Inches): 5.00 Weight (Pounds): 150 General Appearance: lethargic EENT: normal ENT inspection Neck: normal alignment Cardiovascular: normal peripheral pulses, normal rate, regular rhythm Respiratory/Chest: chest wall non-tender, lungs clear, normal breath sounds Abdomen: normal bowel sounds, non tender, soft Extremities: normal inspection Edema: no edema noted Arm (L), no edema noted Arm (R), no edema noted Leg (L), no edema noted Leg (R), no edema noted Pedal (L), no edema noted Pedal (R), no edema noted Generalized Neurologic: motor weakness Skin: normal pigmentation, warm/dry Assessment/Plan Problem List: (1) Sepsis ICD Codes: A41.9 - Sepsis, unspecified organism SNOMED: 35639848 (2) Hypoxia ICD Codes: R09.02 - Hypoxemia SNOMED: 574565616 (3) COVID-19 ICD Codes: U07.1 - COVID-19 SNOMED: 381031534 (4) Dyspnea ICD Codes: R06.00 - Dyspnea, unspecified SNOMED: 653455560 Qualifiers: Qualified Codes: R06.00 - Dyspnea, unspecified (5) Respiratory distress ICD Codes: R06.03 - Acute respiratory distress SNOMED: 016225697 (6) Altered mental status ICD Codes: R41.82 - Altered mental status, unspecified SNOMED: 837994830 Status: stable, progressing Assessment/Plan: o2 pulm tx abx cbc bmp am Akash Fishman DO Mar 14, 2020 10:05
[2020-03-14 10:15] LABS: ALANINE AMINOTRANSFERASE 45 U/L (12-78); ALBUMIN 2.2 G/DL (3.4-5.0); ALBUMIN/GLOBULIN RATIO 0.6 (1.0-2.7); ALKALINE PHOSPHATASE 68 U/L (46-116); ANION GAP 6 mmol/L (5-15); ASPARTATE AMINO TRANSFERASE 28 U/L (15-37); BILIRUBIN,TOTAL 0.7 MG/DL (0.2-1.0); BLOOD UREA NITROGEN 28 mg/dL (7-18); CALCIUM 8.9 MG/DL (8.5-10.1); CARBON DIOXIDE 21 MMOL/L (21-32); CHLORIDE 111 MMOL/L (98-107); CREATININE 0.8 MG/DL (0.55-1.30); POTASSIUM 3.3 MMOL/L (3.5-5.1); SODIUM 138 MMOL/L (136-145)
--- NOTE | 2020-03-14 11:20 | Pulmonology Progress Note ---
Subjective ROS Limited/Unobtainable: No Constitutional: Denies: fever Gastrointestinal/Abdominal: Denies: nausea Psychiatric: Denies: depression Skin: Denies: rash Musculoskeletal: Denies: pain Allergies: Coded Allergies: PENICILLINS (Verified Allergy, Unknown, 03/06/20) All Systems: reviewed and negative except above Subjective was on RA, no resp distress while ambulating with PT developed hypoxia, back on supplemental oxygen low flow via NC denies CP no fevers, no leukocytosis Objective Last 24 Hour Vital Signs Date Time Temp Pulse Resp B/P (MAP) Pulse Ox O2 Delivery O2 Flow Rate FiO2 03/14/20 09:31 135/70 03/14/20 09:31 78 135/70 03/14/20 08:00 97.9 78 16 135/70 (91) 96 03/14/20 07:33 65 03/14/20 04:00 62 03/14/20 04:00 98.1 80 16 117/66 (83) 95 03/14/20 00:00 98.4 77 16 130/77 (94) 94 03/14/20 00:00 66 03/13/20 21:00 Room Air 03/13/20 20:00 97.9 82 16 133/86 (102) 93 03/13/20 20:00 70 03/13/20 16:00 75 03/13/20 16:00 96.6 74 16 127/73 (91) 94 03/13/20 12:00 98.2 80 18 123/70 (87) 98 03/13/20 12:00 68 Intake and Output 03/13/20 03/14/20 19:00 07:00 Intake Total 280 ml Output Total 1200 ml Balance -920 ml Intake Oral 280 ml Output Urine Total 1200 ml # Voids 4 1 Objective General Appearance: WD/WN, no apparent distress, elderly [place] speaking female, awake, alert and forgetful Lines, tubes and drains: peripheral HEENT: normocephalic, atraumatic, anicteric, mucous membranes moist, PERRL, on RA ( currently on low flow O12 via NC) Neck: non-tender Respiratory/Chest: chest wall non-tender, lungs clear with moderate air exchange , no respiratory distress, no accessory muscle use Cardiovascular/Chest: normal peripheral pulses, normal rate Abdomen: normal bowel sounds, non tender, soft Extremities: non-tender, normal inspection, no calf tenderness, normal capillary refill Skin Exam: warm/dry Neurologic: alert, responsive, normal mood/affect Musculoskeletal: atrophy - BLE Laboratory Tests 03/14/20 09:20: White Blood Count 8.2, Red Blood Count 5.19, Hemoglobin 14.1, Hematocrit 40.6, Mean Corpuscular Volume 78L, Mean Corpuscular Hemoglobin 27.3, Mean Corpuscular Hemoglobin Concent 34.8, Red Cell Distribution Width 15.4H, Platelet Count 448, Mean Platelet Volume 6.8, Neutrophils (%) (Auto) 79.3H, Lymphocytes (%) (Auto) 13.0L, Monocytes (%) (Auto) 7.1, Eosinophils (%) (Auto) 0.0, Basophils (%) (Auto) 0.5, Sodium Level 138, Potassium Level 3.3L, Chloride Level 111H, Carbon Dioxide Level 21, Anion Gap 6, Blood Urea Nitrogen 28H, Creatinine 0.8, Estimat Glomerular Filtration Rate > 60, Glucose Level 174H, Calcium Level 8.9, Total Bilirubin 0.7, Aspartate Amino Transf (AST/SGOT) 28, Alanine Aminotransferase (ALT/SGPT) 45, Alkaline Phosphatase 68, C-Reactive Protein, Quantitative [Pending], Total Protein 6.1L, Albumin 2.2L, Globulin 3.9, Albumin/Globulin Ratio 0.6L Current Medications Medications (Trade) Dose Ordered Sig/Ra Route PRN Reason Start Time Stop Time Status Last Admin Dose Admin Acetaminophen (Tylenol) 650 mg Q4H PRN ORAL Mild Pain (Pain Scale 1-3) 03/06/20 21:30 04/05/20 21:29 Albuterol Sulfate (Proventil MDI) 2 puff Q4H PRN INH Shortness of Breath 03/06/20 21:30 06/04/20 21:29 Atorvastatin Calcium (Lipitor) 40 mg BEDTIME ORAL 03/07/20 21:00 06/05/20 20:59 03/13/20 22:38 Dexamethasone Sodium Phosphate (Decadron 4mg/ml vial) 6 mg DAILY IVP 03/08/20 09:00 03/16/20 12:00 03/14/20 09:32 Dextrose (Dextrose 50%) 25 ml Q30M PRN IV Hypoglycemia 03/06/20 21:30 06/04/20 21:29 Dextrose (Dextrose 50%) 50 ml Q30M PRN IV Hypoglycemia 03/06/20 21:30 06/04/20 21:29 Diltiazem HCl (Cardizem ER) 180 mg DAILY ORAL 03/08/20 09:00 04/07/20 08:59 03/14/20 09:31 Diphenhydramine HCl (Benadryl) 25 mg Q6H PRN ORAL Itching/Pruritis 03/06/20 21:30 04/05/20 21:29 Donepezil HCl (Aricept) 10 mg QHS ORAL 03/07/20 21:00 04/06/20 20:59 03/13/20 22:39 Enoxaparin Sodium (Lovenox) 40 mg QHS SUBQ 03/12/20 21:00 06/10/20 20:59 03/13/20 22:39 Lisinopril (ZestriL) 10 mg DAILY ORAL 03/08/20 09:00 04/07/20 08:59 03/14/20 09:31 Ondansetron HCl (Zofran) 4 mg Q6H PRN IVP Nausea & Vomiting 03/06/20 21:30 04/05/20 21:29 Assessment/Plan Assessment/Plan ASSESSMENT COVID 19 PNA Acute hypoxemic respiratory failure due to COVID 19 PNA -resolved Gram positive bacteremia -likely contaminant Possible UTI Hx of HTN Dementia PLAN OF CARE tele isolation Date of sx onset: few days prior to presentation to ED on 03/07 Positive test: 03/07 rapid COVID 19 +, 03/07 COVID by PCR NGT O2 RA HFA s/p REM x 5 days ( 03/07 - 03/11 ) Dex Day# 8 ( 03/07 - ) DVT PPX: Lovenox D dimer 1.56 Trend CRP 17.9-> 4.2 - pending for this am CXR 03/09 Bilateral pulmonary opacities abx per ID recs, BCX + Staph epidermidis, prob contaminant ; repeated BCX 03/09 NGTD , completed abx 03/13 ECHO with pEF 60, + echogenic material on post MV, likely calcification monitor volumes and renal function Fup with consultants recs FC discuss GOC dc plan per primary case discussed and evaluated by supervising physician Luly Koo [employer] Mar 14, 2020 11:20
[2020-03-14 12:00] VITALS: BP 114/65
--- NOTE | 2020-03-14 12:07 | Diagnostic Imaging Report ---
Indication: Shortness of breath Technique: One view of the chest Comparison: none Findings: Better inspiration currently. Bilateral infiltrates appear somewhat improved, although this could in part be an artifact of better inspiration. The heart is upper limits normal in size. The pleural spaces remain clear. Impression: Slightly improved bilateral infiltrates
--- NOTE | 2020-03-14 12:58 | Consultation ---
History of Present Illness General Reason for Hospitalization: Dyspnea/Respdistress Present Illness HPI This is a very unfortunate 84-year-old female with history of dementia who is alert awake oriented only x1 history of hypertension multiple medical comorbidities that was a care facility patient transferred to [facility] for evaluation shortness of breath identified to have desaturation. Patient identified to be malnourished low body weight abnormal labs and CXR. Surgery called to evaluate assist with care. Patient seen, patient by, chart reviewed. Patient has been significant for some time and declining. High risk for breakdown. Allergies: Coded Allergies: PENICILLINS (Verified Allergy, Unknown, 03/06/20) COVID-19 Screening Contact w/high risk pt: Yes Recent Travel to affected area: Yes Experienced COVID-19 symptoms?: Yes Coronavirus symptoms experienc: Shortness of Breath Medication History Scheduled Cholecalciferol (Vitamin D3) (Vitamin D3*), 125 MCG PO DAILY, (Reported) Donepezil Hcl* (Aricept*), 10 MG ORAL DAILY, (Reported) Guaifenesin/Dextromethorphan (Robitussin Cough-Chest Dm Liq), 5 ML PO EVERY 6 HOURS, (Reported) Lisinopril* (Zestril*), 10 MG ORAL DAILY, (Reported) Rosuvastatin Calcium* (Crestor*), 20 MG ORAL DAILY, (Reported) Sennosides (Senna), 2 TAB PO DAILY, (Reported) Ubidecarenone (Co Q10), 100 MG PO DAILY, (Reported) Miscellaneous Medications Calcium Carbonate/Vitamin D3 (Oyster Shell 500Mg-Vit D3 5Mcg), 1 EACH PO, (Reported) Diltiazem HCl (Diltiazem ER), 180 MG PO, (Reported) Discontinued Medications Ubidecarenone (Q-Sorb Co Q-10), 150 MG PO, (Reported) Discontinued Reason: Prescription changed [Zolfen], 20 MG PO, (Reported) Discontinued Reason: Pt stopped taking med Patient History Limited by: age, medical condition History Provided By: Medical Record, PMD Healthcare decision maker Resuscitation status Advanced Directive on File Past Medical/Surgical History Past Medical/Surgical History: (1) Hypoxia (2) COVID-19 (3) Dyspnea (4) Respiratory distress (5) Altered mental status (6) Sepsis Review of Systems Review of Symptoms General ROS: no weight loss or fever Psychological ROS: no depression or mood changes, no memory loss Ophthalmic ROS: no visual changes or eye irritation ENT ROS: no nasal congestion, hearing loss, dizziness Allergy and Immunology ROS: no allergic symptoms or urticaria Hematological and Lymphatic ROS: no swollen glands, unusual bleeding or bruising Endocrine ROS: no polyuria, polydipsia, weight changes, temperature intolerance Respiratory ROS: no cough, shortness of breath, or wheezing Cardiovascular ROS: no chest pain or dyspnea on exertion Gastrointestinal ROS: denies abdominal pain, bright red blood in stool. Musculoskeletal ROS: no myalgias or arthralgias Neurological ROS: no TIA or stroke symptoms Dermatological ROS: no new or changing skin lesions, rashes or pruritis limited given condition Physical Exam Physical Exam General appearance: distress, appears stated age Head: Normocephalic, without obvious abnormality, atraumatic Eyes: conjunctivae/corneas clear. PERRL, EOM's intact. Fundi benign Throat: Lips, mucosa, and tongue normal. Teeth and gums normal Neck: supple, symmetrical, trachea midline, no adenopathy, thyroid: not enlarged, symmetric, no tenderness/mass/nodules, no carotid bruit and no JVD Lungs: dec to auscultation bilaterally Heart: regular rate and rhythm, S1, S2 normal, no murmur, click, rub or gallop Abdomen: soft, non-tender. Bowel sounds normal. No masses, no organomegaly Extremities: extremities normal, atraumatic, no cyanosis or edema Pulses: 2+ and symmetric Skin: Skin color, texture, turgor normal. No rashes or lesions Neurologic: Grossly normal Last 24 Hour Vital Signs Date Time Temp Pulse Resp B/P (MAP) Pulse Ox O2 Delivery O2 Flow Rate FiO2 03/14/20 12:00 97.7 81 20 114/65 (81) 95 03/14/20 09:31 135/70 03/14/20 09:31 78 135/70 03/14/20 08:00 97.9 78 16 135/70 (91) 96 03/14/20 07:33 65 03/14/20 04:00 62 03/14/20 04:00 98.1 80 16 117/66 (83) 95 03/14/20 00:00 98.4 77 16 130/77 (94) 94 03/14/20 00:00 66 03/13/20 21:00 Room Air 03/13/20 20:00 97.9 82 16 133/86 (102) 93 03/13/20 20:00 70 03/13/20 16:00 75 03/13/20 16:00 96.6 74 16 127/73 (91) 94 Intake and Output 03/13/20 03/14/20 19:00 07:00 Intake Total 280 ml Output Total 1200 ml Balance -920 ml Intake Oral 280 ml Output Urine Total 1200 ml # Voids 4 1 Laboratory Tests Test 03/14/20 09:20 White Blood Count 8.2 K/UL (4.8-10.8) Red Blood Count 5.19 M/UL (4.20-5.40) Hemoglobin 14.1 G/DL (12.0-16.0) Hematocrit 40.6 % (37.0-47.0) Mean Corpuscular Volume 78 FL (80-99) L Mean Corpuscular Hemoglobin 27.3 PG (27.0-31.0) Mean Corpuscular Hemoglobin Concent 34.8 G/DL (32.0-36.0) Red Cell Distribution Width 15.4 % (11.6-14.8) H Platelet Count 448 K/UL (150-450) Mean Platelet Volume 6.8 FL (6.5-10.1) Neutrophils (%) (Auto) 79.3 % (45.0-75.0) H Lymphocytes (%) (Auto) 13.0 % (20.0-45.0) L Monocytes (%) (Auto) 7.1 % (1.0-10.0) Eosinophils (%) (Auto) 0.0 % (0.0-3.0) Basophils (%) (Auto) 0.5 % (0.0-2.0) Sodium Level 138 MMOL/L (136-145) Potassium Level 3.3 MMOL/L (3.5-5.1) L Chloride Level 111 MMOL/L (98-107) H Carbon Dioxide Level 21 MMOL/L (21-32) Anion Gap 6 mmol/L (5-15) Blood Urea Nitrogen 28 mg/dL (7-18) H Creatinine 0.8 MG/DL (0.55-1.30) Estimat Glomerular Filtration Rate > 60 mL/min (>60) Glucose Level 174 MG/DL (74-106) H Calcium Level 8.9 MG/DL (8.5-10.1) Total Bilirubin 0.7 MG/DL (0.2-1.0) Aspartate Amino Transf (AST/SGOT) 28 U/L (15-37) Alanine Aminotransferase (ALT/SGPT) 45 U/L (12-78) Alkaline Phosphatase 68 U/L (46-116) C-Reactive Protein, Quantitative Pending Total Protein 6.1 G/DL (6.4-8.2) L Albumin 2.2 G/DL (3.4-5.0) L Globulin 3.9 g/dL Albumin/Globulin Ratio 0.6 (1.0-2.7) L Height (Feet): 5 Height (Inches): 5.00 Weight (Pounds): 150 Medications Current Medications Medications (Trade) Dose Ordered Sig/Ra Route PRN Reason Start Time Stop Time Status Last Admin Dose Admin Acetaminophen (Tylenol) 650 mg Q4H PRN ORAL Mild Pain (Pain Scale 1-3) 03/06/20 21:30 04/05/20 21:29 Albuterol Sulfate (Proventil MDI) 2 puff Q4H PRN INH Shortness of Breath 03/06/20 21:30 06/04/20 21:29 Atorvastatin Calcium (Lipitor) 40 mg BEDTIME ORAL 03/07/20 21:00 06/05/20 20:59 03/13/20 22:38 Dexamethasone Sodium Phosphate (Decadron 4mg/ml vial) 6 mg DAILY IVP 03/08/20 09:00 03/16/20 12:00 03/14/20 09:32 Dextrose (Dextrose 50%) 25 ml Q30M PRN IV Hypoglycemia 03/06/20 21:30 06/04/20 21:29 Dextrose (Dextrose 50%) 50 ml Q30M PRN IV Hypoglycemia 03/06/20 21:30 06/04/20 21:29 Diltiazem HCl (Cardizem ER) 180 mg DAILY ORAL 03/08/20 09:00 04/07/20 08:59 03/14/20 09:31 Diphenhydramine HCl (Benadryl) 25 mg Q6H PRN ORAL Itching/Pruritis 03/06/20 21:30 04/05/20 21:29 Donepezil HCl (Aricept) 10 mg QHS ORAL 03/07/20 21:00 04/06/20 20:59 03/13/20 22:39 Enoxaparin Sodium (Lovenox) 40 mg QHS SUBQ 03/12/20 21:00 06/10/20 20:59 03/13/20 22:39 Lisinopril (ZestriL) 10 mg DAILY ORAL 03/08/20 09:00 04/07/20 08:59 03/14/20 09:31 Ondansetron HCl (Zofran) 4 mg Q6H PRN IVP Nausea & Vomiting 03/06/20 21:30 04/05/20 21:29 Assessment/Plan Problem List: (1) Hypoxia ICD Codes: R09.02 - Hypoxemia SNOMED: 946544576 (2) COVID-19 Assessment & Plan: ++ as per ID and pulm cont current respiratory tx weaning ICD Codes: U07.1 - COVID-19 SNOMED: 898500066 (3) Dyspnea ICD Codes: R06.00 - Dyspnea, unspecified SNOMED: 117409647 Qualifiers: Qualified Codes: R06.00 - Dyspnea, unspecified (4) Respiratory distress Assessment & Plan: Better inspiration currently. Bilateral infiltrates appear somewhat improved, although this could in part be an artifact of better inspiration. The heart is upper limits normal in size. The pleural spaces remain clear. ICD Codes: R06.03 - Acute respiratory distress SNOMED: 984280883 (5) Altered mental status ICD Codes: R41.82 - Altered mental status, unspecified SNOMED: 669229620 (6) Sepsis Assessment & Plan: Ms. Stafford is an 84 year old female was taken to [facility] from home for progressive cough concerning for COVID 19 on 03/06/2020. The result came positive for COVID 19 and subsequently admitted. Inflammatory marker was elevated CXR was concerning for bilateral infiltrate and dexamethasone started as protocol. She is on clear liquid diet and tolerating without s.s of aspiration. CBC/CMP/LFT are grossly unremarkable. VSS, SPo2 96% on 4liter via NC. Findings: Ms. Sotelo is alert and oriented x 2 based on my limited Samoan skills. Her speech is clear and voice is normal. Intermittent dry cough is noted. Given her jello, cracker, and water, she was able to self feed and drink with left hand without s.s of aspiration. The oral mucosa is clear and moist. Missing her teeth is noted. Interpretation: 1. Functional Swallow Plan: 1. Advance to mechanical soft chopped meat with thin liquid DAILY ESTIMATED NEEDS: Needs based on Pulmonary, 60kg abw 25-30 kcals/kg 9187-3005 total kcals 1-1.3 g protein/kg 60-78 g total protein 25-30 mL/kg [id number] total fluid mLs NUTRITION DIAGNOSIS: Swallowing difficulty R/T dysphagia, rapiratory status w/ COVID-19 positive [facility] texture diet as per [facility] [facility] rec. CURRENT DIET:Cardiac, mech soft chopped PO DIET RECOMMENDATIONS: Liberalized REGULAR/ texture per [employer] [facility] ADDITIONAL RECOMMENDATIONS: * Calibrated bedscale wt * Ensure Enlive TID w/ meals * Monitor PO intake- poor PO at this time -> consider appetite stimulant w/ continued poor PO * Monitor BGs w/ Decadron- well controlled at this time ICD Codes: A41.9 - Sepsis, unspecified organism SNOMED: 53441193 López Graf Mar 14, 2020 12:58
[2020-03-14 16:00] VITALS: BP 121/74
--- NOTE | 2020-03-14 16:09 | Cardiology Report ---
APPROVED REPORT EKG Measurement Heart [id number] <Conclusion> Sinus tachycardia Incomplete right bundle branch block Possible Right ventricular hypertrophy Possible Inferior infarct, age undetermined Possible Anterolateral infarct, age undetermined Abnormal ECG
--- NOTE | 2020-03-14 19:08 | Cardiology Report ---
APPROVED REPORT EXAM: Two-dimensional and M-mode echocardiogram with Doppler and color Doppler. INDICATION Endocarditis <Conclusion> Technically difficult and limited study due to poor acoustic windows and patients resistance. Study quality precludes accurate assessment of regional wall motion. M-mode measurements of left ventricle not obtainable due to cardiac position (angle). Normal left ventricular chamber size, systolic function and wall motion to extent visualized. Left ventricular ejection fraction estimated to be 60 %. There appears to be no evidence of left ventricular hypertrophy. Anterior Echo-free space, may be due to pericardial fat or effusion. All other cardiac chamber sizes appear to be within normal limits. Mild focal aortic valve sclerosis with adequate cusp excursion. Mildly thickened mitral valve leaflets with normal excursion. Echogenic material noted on posterior mitral valve leaflet, likely calcification. Mild mitral annulus and aortic root calcification. Pulmonic valve not visualized. Normal tricuspid valve structure. Subcostal views not obtainable. A color flow and spectral Doppler study was performed and revealed: No aortic regurgitation. Trace mitral regurgitation. Mitral diastolic velocities suggest mild left ventricular diastolic dysfunction (Grade I). No tricuspid regurgitation.
[2020-03-14 20:00] VITALS: BP 120/75
[2020-03-14] MEDS: Atorvastatin 20mg tab ORAL SCH (21:51)
[2020-03-14] MEDS: Donepezil 10mg tab ORAL SCH (21:51)
[2020-03-14] MEDS: Enoxaparin 40mg Inj SUBQ SCH (21:56)
--- NOTE | 2020-03-14 23:18 | Neurology Progress Note ---
Interim History Interim History ROS Limited/Unobtainable: No Interim History no new deficits Objective Physical Exam Last Vital Signs Date Time Temp Pulse Resp B/P (MAP) Pulse Ox O2 Delivery O2 Flow Rate FiO2 03/14/20 21:00 Nasal Cannula 2.0 03/14/20 20:00 78 03/14/20 20:00 97.5 20 120/75 (90) 96 Laboratory Tests Test 03/14/20 09:20 White Blood Count 8.2 K/UL (4.8-10.8) Red Blood Count 5.19 M/UL (4.20-5.40) Hemoglobin 14.1 G/DL (12.0-16.0) Hematocrit 40.6 % (37.0-47.0) Mean Corpuscular Volume 78 FL (80-99) L Mean Corpuscular Hemoglobin 27.3 PG (27.0-31.0) Mean Corpuscular Hemoglobin Concent 34.8 G/DL (32.0-36.0) Red Cell Distribution Width 15.4 % (11.6-14.8) H Platelet Count 448 K/UL (150-450) Mean Platelet Volume 6.8 FL (6.5-10.1) Neutrophils (%) (Auto) 79.3 % (45.0-75.0) H Lymphocytes (%) (Auto) 13.0 % (20.0-45.0) L Monocytes (%) (Auto) 7.1 % (1.0-10.0) Eosinophils (%) (Auto) 0.0 % (0.0-3.0) Basophils (%) (Auto) 0.5 % (0.0-2.0) Sodium Level 138 MMOL/L (136-145) Potassium Level 3.3 MMOL/L (3.5-5.1) L Chloride Level 111 MMOL/L (98-107) H Carbon Dioxide Level 21 MMOL/L (21-32) Anion Gap 6 mmol/L (5-15) Blood Urea Nitrogen 28 mg/dL (7-18) H Creatinine 0.8 MG/DL (0.55-1.30) Estimat Glomerular Filtration Rate > 60 mL/min (>60) Glucose Level 174 MG/DL (74-106) H Calcium Level 8.9 MG/DL (8.5-10.1) Total Bilirubin 0.7 MG/DL (0.2-1.0) Aspartate Amino Transf (AST/SGOT) 28 U/L (15-37) Alanine Aminotransferase (ALT/SGPT) 45 U/L (12-78) Alkaline Phosphatase 68 U/L (46-116) C-Reactive Protein, Quantitative 3.2 mg/L (<5) Total Protein 6.1 G/DL (6.4-8.2) L Albumin 2.2 G/DL (3.4-5.0) L Globulin 3.9 g/dL Albumin/Globulin Ratio 0.6 (1.0-2.7) L Head: normocophalic Neck: no rigidity EENT: benign Neurologic Exam Objective somnolent, open eyes moves all 4 nc at abd soft Impression/Recommendations Problems: (1) Hypoxia (2) COVID-19 (3) Dyspnea (4) Respiratory distress (5) Altered mental status Status: stable, progressing Diagnostic Impression acute encephalopathy 2/2 covid dementia covid 19 delirium precautions for now covid support pt as able Rob Pascual MD Mar 14, 2020 23:18
[2020-03-15] VITALS: BP 118/68
[2020-03-15 04:00] VITALS: BP 11/68
[2020-03-15 06:20] LABS: BASOPHILS % (AUTO) 0.9 % (0.0-2.0); HEMATOCRIT 42.3 % (37.0-47.0); HEMOGLOBIN 14.3 G/DL (12.0-16.0); LYMPHOCYTES % (AUTO) 10.9 % (20.0-45.0); MEAN CORPUSCULAR VOLUME 82 FL (80-99); MONOCYTES % (AUTO) 6.4 % (1.0-10.0); NEUTROPHILS % (AUTO) 81.9 % (45.0-75.0); PLATELET COUNT 424 K/UL (150-450); RED BLOOD COUNT 5.16 M/UL (4.20-5.40); RED CELL DISTRIBUTION WIDTH 14.3 % (11.6-14.8); WHITE BLOOD COUNT 8.9 K/UL (4.8-10.8)
[2020-03-15 07:14] LABS: ANION GAP 5 mmol/L (5-15); BLOOD UREA NITROGEN 30 mg/dL (7-18); CALCIUM 9.2 MG/DL (8.5-10.1); CARBON DIOXIDE 25 MMOL/L (21-32); CHLORIDE 110 MMOL/L (98-107); CREATININE 0.8 MG/DL (0.55-1.30); POTASSIUM 4.5 MMOL/L (3.5-5.1); SODIUM 140 MMOL/L (136-145)
[2020-03-15 08:00] VITALS: BP 128/72
[2020-03-15] MEDS: Lisinopril 10mg tab ORAL SCH (08:49)
[2020-03-15] MEDS: dilTIAZem HCl ER 180mg cap ORAL SCH (08:49)
--- NOTE | 2020-03-15 09:01 | Neurology Progress Note ---
Interim History Interim History ROS Limited/Unobtainable: No Interim History more alert Objective Physical Exam Last Vital Signs Date Time Temp Pulse Resp B/P (MAP) Pulse Ox O2 Delivery O2 Flow Rate FiO2 03/15/20 08:49 128/72 03/15/20 08:49 72 03/15/20 08:00 97.7 18 96 03/14/20 21:00 Nasal Cannula 2.0 Laboratory Tests Test 03/14/20 09:20 03/15/20 05:57 White Blood Count 8.2 K/UL (4.8-10.8) 8.9 K/UL (4.8-10.8) Red Blood Count 5.19 M/UL (4.20-5.40) 5.16 M/UL (4.20-5.40) Hemoglobin 14.1 G/DL (12.0-16.0) 14.3 G/DL (12.0-16.0) Hematocrit 40.6 % (37.0-47.0) 42.3 % (37.0-47.0) Mean Corpuscular Volume 78 FL (80-99) L 82 FL (80-99) Mean Corpuscular Hemoglobin 27.3 PG (27.0-31.0) 27.7 PG (27.0-31.0) Mean Corpuscular Hemoglobin Concent 34.8 G/DL (32.0-36.0) 33.7 G/DL (32.0-36.0) Red Cell Distribution Width 15.4 % (11.6-14.8) H 14.3 % (11.6-14.8) Platelet Count 448 K/UL (150-450) 424 K/UL (150-450) Mean Platelet Volume 6.8 FL (6.5-10.1) 7.2 FL (6.5-10.1) Neutrophils (%) (Auto) 79.3 % (45.0-75.0) H 81.9 % (45.0-75.0) H Lymphocytes (%) (Auto) 13.0 % (20.0-45.0) L 10.9 % (20.0-45.0) L Monocytes (%) (Auto) 7.1 % (1.0-10.0) 6.4 % (1.0-10.0) Eosinophils (%) (Auto) 0.0 % (0.0-3.0) 0.0 % (0.0-3.0) Basophils (%) (Auto) 0.5 % (0.0-2.0) 0.9 % (0.0-2.0) Sodium Level 138 MMOL/L (136-145) 140 MMOL/L (136-145) Potassium Level 3.3 MMOL/L (3.5-5.1) L 4.5 MMOL/L (3.5-5.1) Chloride Level 111 MMOL/L (98-107) H 110 MMOL/L (98-107) H Carbon Dioxide Level 21 MMOL/L (21-32) 25 MMOL/L (21-32) Anion Gap 6 mmol/L (5-15) 5 mmol/L (5-15) Blood Urea Nitrogen 28 mg/dL (7-18) H 30 mg/dL (7-18) H Creatinine 0.8 MG/DL (0.55-1.30) 0.8 MG/DL (0.55-1.30) Estimat Glomerular Filtration Rate > 60 mL/min (>60) > 60 mL/min (>60) Glucose Level 174 MG/DL (74-106) H 151 MG/DL (74-106) H Calcium Level 8.9 MG/DL (8.5-10.1) 9.2 MG/DL (8.5-10.1) Total Bilirubin 0.7 MG/DL (0.2-1.0) Aspartate Amino Transf (AST/SGOT) 28 U/L (15-37) Alanine Aminotransferase (ALT/SGPT) 45 U/L (12-78) Alkaline Phosphatase 68 U/L (46-116) C-Reactive Protein, Quantitative 3.2 mg/L (<5) Total Protein 6.1 G/DL (6.4-8.2) L Albumin 2.2 G/DL (3.4-5.0) L Globulin 3.9 g/dL Albumin/Globulin Ratio 0.6 (1.0-2.7) L Head: normocophalic Neck: no rigidity EENT: benign Neurologic Exam Objective somnolent, open eyes moves all 4 nc at abd soft Impression/Recommendations Problems: (1) Hypoxia (2) COVID-19 (3) Dyspnea (4) Respiratory distress (5) Altered mental status Status: stable, progressing Diagnostic Impression acute encephalopathy 2/2 covid dementia covid 19 delirium precautions for now covid support pt as able Rob Pascula MD Mar 15, 2020 09:01
--- NOTE | 2020-03-15 09:12 | General Progress Note ---
Subjective Constitutional: Reports: weakness Allergies: Coded Allergies: PENICILLINS (Verified Allergy, Unknown, 03/06/20) All Systems: reviewed and negative except above Subjective o2nc sleepy Objective Last 24 Hour Vital Signs Date Time Temp Pulse Resp B/P (MAP) Pulse Ox O2 Delivery O2 Flow Rate FiO2 03/15/20 08:49 128/72 03/15/20 08:49 72 128/72 03/15/20 08:00 97.7 72 18 128/72 (90) 96 03/15/20 04:00 66 03/15/20 04:00 97.9 75 20 11/68 (49) 95 03/15/20 00:00 97.7 81 20 118/68 (85) 96 03/15/20 00:00 67 03/14/20 21:00 Nasal Cannula 2.0 03/14/20 20:00 78 03/14/20 20:00 97.5 79 20 120/75 (90) 96 03/14/20 16:00 97.6 78 20 121/74 (90) 97 03/14/20 15:21 77 03/14/20 12:28 68 03/14/20 12:00 97.7 81 20 114/65 (81) 95 03/14/20 09:31 135/70 03/14/20 09:31 78 135/70 Intake and Output 03/14/20 03/15/20 19:00 07:00 Intake Total 324 ml Balance 324 ml Intake Oral 324 ml # Voids 2 1 Laboratory Tests 03/14/20 09:20: White Blood Count 8.2, Red Blood Count 5.19, Hemoglobin 14.1, Hematocrit 40.6, Mean Corpuscular Volume 78L, Mean Corpuscular Hemoglobin 27.3, Mean Corpuscular Hemoglobin Concent 34.8, Red Cell Distribution Width 15.4H, Platelet Count 448, Mean Platelet Volume 6.8, Neutrophils (%) (Auto) 79.3H, Lymphocytes (%) (Auto) 13.0L, Monocytes (%) (Auto) 7.1, Eosinophils (%) (Auto) 0.0, Basophils (%) (Auto) 0.5, Sodium Level 138, Potassium Level 3.3L, Chloride Level 111H, Carbon Dioxide Level 21, Anion Gap 6, Blood Urea Nitrogen 28H, Creatinine 0.8, Estimat Glomerular Filtration Rate > 60, Glucose Level 174H, Calcium Level 8.9, Total Bilirubin 0.7, Aspartate Amino Transf (AST/SGOT) 28, Alanine Aminotransferase (ALT/SGPT) 45, Alkaline Phosphatase 68, C-Reactive Protein, Quantitative 3.2, Total Protein 6.1L, Albumin 2.2L, Globulin 3.9, Albumin/Globulin Ratio 0.6L 03/15/20 05:57: White Blood Count 8.9, Red Blood Count 5.16, Hemoglobin 14.3, Hematocrit 42.3, Mean Corpuscular Volume 82, Mean Corpuscular Hemoglobin 27.7, Mean Corpuscular Hemoglobin Concent 33.7, Red Cell Distribution Width 14.3, Platelet Count 424, Mean Platelet Volume 7.2, Neutrophils (%) (Auto) 81.9H, Lymphocytes (%) (Auto) 10.9L, Monocytes (%) (Auto) 6.4, Eosinophils (%) (Auto) 0.0, Basophils (%) (Auto) 0.9, Sodium Level 140, Potassium Level 4.5, Chloride Level 110H, Carbon Dioxide Level 25, Anion Gap 5, Blood Urea Nitrogen 30H, Creatinine 0.8, Estimat Glomerular Filtration Rate > 60, Glucose Level 151H, Calcium Level 9.2 Height (Feet): 5 Height (Inches): 5.00 Weight (Pounds): 150 General Appearance: lethargic EENT: normal ENT inspection Neck: normal alignment Cardiovascular: normal peripheral pulses, normal rate, regular rhythm Respiratory/Chest: chest wall non-tender, lungs clear, normal breath sounds Abdomen: normal bowel sounds, non tender, soft Extremities: normal inspection Edema: no edema noted Arm (L), no edema noted Arm (R), no edema noted Leg (L), no edema noted Leg (R), no edema noted Pedal (L), no edema noted Pedal (R), no edema noted Generalized Neurologic: motor weakness Skin: normal pigmentation, warm/dry Assessment/Plan Problem List: (1) Sepsis ICD Codes: A41.9 - Sepsis, unspecified organism SNOMED: 30116442 (2) Hypoxia ICD Codes: R09.02 - Hypoxemia SNOMED: 119563052 (3) COVID-19 ICD Codes: U07.1 - COVID-19 SNOMED: 947189769 (4) Dyspnea ICD Codes: R06.00 - Dyspnea, unspecified SNOMED: 835729402 Qualifiers: Qualified Codes: R06.00 - Dyspnea, unspecified (5) Respiratory distress ICD Codes: R06.03 - Acute respiratory distress SNOMED: 169919636 (6) Altered mental status ICD Codes: R41.82 - Altered mental status, unspecified SNOMED: 242685403 Status: stable, progressing Assessment/Plan: o2 pulm tx abx cbc bmp am Akash Fishman Mar 15, 2020 09:12
--- NOTE | 2020-03-15 11:55 | Surgery Progress Note ---
Surgery Progress Note Subjective Symptoms: improved, tolerating diet, passing flatus, pain decreased Objective Last 24 Hour Vital Signs Date Time Temp Pulse Resp B/P (MAP) Pulse Ox O2 Delivery O2 Flow Rate FiO2 03/15/20 09:00 Nasal Cannula 2.0 03/15/20 08:49 128/72 03/15/20 08:49 72 128/72 03/15/20 08:00 77 03/15/20 08:00 97.7 72 18 128/72 (90) 96 03/15/20 04:00 66 03/15/20 04:00 97.9 75 20 11/68 (49) 95 03/15/20 00:00 97.7 81 20 118/68 (85) 96 03/15/20 00:00 67 03/14/20 21:00 Nasal Cannula 2.0 03/14/20 20:00 78 03/14/20 20:00 97.5 79 20 120/75 (90) 96 03/14/20 16:00 97.6 78 20 121/74 (90) 97 03/14/20 15:21 77 03/14/20 12:28 68 03/14/20 12:00 97.7 81 20 114/65 (81) 95 I&O Intake and Output 03/14/20 03/15/20 19:00 07:00 Intake Total 324 ml Balance 324 ml Intake Oral 324 ml # Voids 2 1 Dressing: saturated Cardiovascular: RSR Respiratory: decreased breath sounds Abdomen: soft, non-tender, present bowel sounds, non-distended Extremities: no tenderness, no cyanosis Laboratory Tests Test 03/15/20 05:57 White Blood Count 8.9 K/UL (4.8-10.8) Red Blood Count 5.16 M/UL (4.20-5.40) Hemoglobin 14.3 G/DL (12.0-16.0) Hematocrit 42.3 % (37.0-47.0) Mean Corpuscular Volume 82 FL (80-99) Mean Corpuscular Hemoglobin 27.7 PG (27.0-31.0) Mean Corpuscular Hemoglobin Concent 33.7 G/DL (32.0-36.0) Red Cell Distribution Width 14.3 % (11.6-14.8) Platelet Count 424 K/UL (150-450) Mean Platelet Volume 7.2 FL (6.5-10.1) Neutrophils (%) (Auto) 81.9 % (45.0-75.0) H Lymphocytes (%) (Auto) 10.9 % (20.0-45.0) L Monocytes (%) (Auto) 6.4 % (1.0-10.0) Eosinophils (%) (Auto) 0.0 % (0.0-3.0) Basophils (%) (Auto) 0.9 % (0.0-2.0) Sodium Level 140 MMOL/L (136-145) Potassium Level 4.5 MMOL/L (3.5-5.1) Chloride Level 110 MMOL/L (98-107) H Carbon Dioxide Level 25 MMOL/L (21-32) Anion Gap 5 mmol/L (5-15) Blood Urea Nitrogen 30 mg/dL (7-18) H Creatinine 0.8 MG/DL (0.55-1.30) Estimat Glomerular Filtration Rate > 60 mL/min (>60) Glucose Level 151 MG/DL (74-106) H Calcium Level 9.2 MG/DL (8.5-10.1) Plan Problems: (1) Hypoxia (2) COVID-19 Assessment & Plan: ++ as per ID and pulm cont current respiratory tx weaning (3) Dyspnea (4) Respiratory distress Assessment & Plan: Better inspiration currently. Bilateral infiltrates appear somewhat improved, although this could in part be an artifact of better inspiration. The heart is upper limits normal in size. The pleural spaces remain clear. (5) Altered mental status (6) Sepsis Assessment & Plan: Ms. Stafford is an 84 year old female [facility] for progressive cough concerning for COVID 19 on 03/06/2020. The result came positive for COVID 19 and subsequently admitted. Inflammatory marker was elevated CXR was concerning for bilateral infiltrate and dexa methasone started as protocol. She is on clear liquid diet and tolerating without s.s of aspiration. CBC/CMP/LFT are grossly unremarkable. VSS, SPo2 96% on 4liter via NC. Findings: Ms. Sotelo is alert and oriented x 2 based on my limited English skills. Her speech is clear and voice is normal. Intermittent dry cough is noted. Given her jello, cracker, and water, she was able to self feed and drink with left hand without s.s of aspiration. The oral mucosa is clear and moist. Missing her teeth is noted. Interpretation: 1. Functional Swallow Plan: 1. Advance to mechanical soft chopped meat with thin liquid DAILY ESTIMATED NEEDS: DAILY ESTIMATED NEEDS: Needs based on Pulmonary, 60kg abw 25-30 kcals/kg 7290-3483 total kcals 1-1.5 g protein/kg 60-90 g total protein 25-30 mL/kg 7524-7395 total fluid mLs NUTRITION DIAGNOSIS: Swallowing difficulty R/T dysphagia, respiratory status w/ COVID-19 positive as evidenced by pt on [facility] soft chopped texture diet as per [employer] rec. CURRENT DIET:Cardiac, [facility] soft chopped PO DIET RECOMMENDATIONS: Liberalized REGULAR/ texture per [employer] ADDITIONAL RECOMMENDATIONS: * Calibrated bedscale wt-> daily wts trending down * Ensure Enlive TID w/ meals * Monitor PO intake- poor PO at this time -> consider appetite stimulant w/ continued poor PO * Monitor BGs w/ Decadron (BG 151-174) López Graf Mar 15, 2020 11:55
[2020-03-15 12:00] VITALS: BP 120/69
--- NOTE | 2020-03-15 12:36 | Pulmonology Progress Note ---
Subjective ROS Limited/Unobtainable: No Constitutional: Denies: fever Gastrointestinal/Abdominal: Denies: nausea Psychiatric: Denies: depression Skin: Denies: rash Musculoskeletal: Denies: pain Allergies: Coded Allergies: PENICILLINS (Verified Allergy, Unknown, 03/06/20) All Systems: reviewed and negative except above Subjective no resp distress, no SOB denies CP no fevers, no leukocytosis Objective Last 24 Hour Vital Signs Date Time Temp Pulse Resp B/P (MAP) Pulse Ox O2 Delivery O2 Flow Rate FiO2 03/15/20 12:00 97.9 60 20 120/69 (86) 95 03/15/20 09:00 Nasal Cannula 2.0 03/15/20 08:49 128/72 03/15/20 08:49 72 128/72 03/15/20 08:00 77 03/15/20 08:00 97.7 72 18 128/72 (90) 96 03/15/20 04:00 66 03/15/20 04:00 97.9 75 20 11/68 (49) 95 03/15/20 00:00 97.7 81 20 118/68 (85) 96 03/15/20 00:00 67 03/14/20 21:00 Nasal Cannula 2.0 03/14/20 20:00 78 03/14/20 20:00 97.5 79 20 120/75 (90) 96 03/14/20 16:00 97.6 78 20 121/74 (90) 97 03/14/20 15:21 77 Intake and Output 03/14/20 03/15/20 19:00 07:00 Intake Total 324 ml Balance 324 ml Intake Oral 324 ml # Voids 2 1 Objective General Appearance: WD/WN, no apparent distress, elderly Cambodian speaking female, awake, alert and forgetful Lines, tubes and drains: peripheral HEENT: normocephalic, atraumatic, anicteric, mucous membranes moist, PERRL, on RA Neck: non-tender Respiratory/Chest: chest wall non-tender, lungs clear with moderate air exchange , no respiratory distress, no accessory muscle use Cardiovascular/Chest: normal peripheral pulses, normal rate Abdomen: normal bowel sounds, non tender, soft Extremities: non-tender, normal inspection, no calf tenderness, normal capillary refill Skin Exam: warm/dry Neurologic: alert, responsive, normal mood/affect Musculoskeletal: atrophy - BLE Laboratory Tests 03/15/20 05:57: White Blood Count 8.9, Red Blood Count 5.16, Hemoglobin 14.3, Hematocrit 42.3, Mean Corpuscular Volume 82, Mean Corpuscular Hemoglobin 27.7, Mean Corpuscular Hemoglobin Concent 33.7, Red Cell Distribution Width 14.3, Platelet Count 424, Mean Platelet Volume 7.2, Neutrophils (%) (Auto) 81.9H, Lymphocytes (%) (Auto) 10.9L, Monocytes (%) (Auto) 6.4, Eosinophils (%) (Auto) 0.0, Basophils (%) (Auto) 0.9, Sodium Level 140, Potassium Level 4.5, Chloride Level 110H, Carbon Dioxide Level 25, Anion Gap 5, Blood Urea Nitrogen 30H, Creatinine 0.8, Estimat Glomerular Filtration Rate > 60, Glucose Level 151H, Calcium Level 9.2 Current Medications Medications (Trade) Dose Ordered Sig/Ra Route PRN Reason Start Time Stop Time Status Last Admin Dose Admin Acetaminophen (Tylenol) 650 mg Q4H PRN ORAL Mild Pain (Pain Scale 1-3) 03/06/20 21:30 04/05/20 21:29 Albuterol Sulfate (Proventil MDI) 2 puff Q4H PRN INH Shortness of Breath 03/06/20 21:30 06/04/20 21:29 Atorvastatin Calcium (Lipitor) 40 mg BEDTIME ORAL 03/07/20 21:00 06/05/20 20:59 03/14/20 21:51 Dexamethasone Sodium Phosphate (Decadron 4mg/ml vial) 6 mg DAILY IVP 03/08/20 09:00 03/16/20 12:00 03/15/20 08:49 Dextrose (Dextrose 50%) 25 ml Q30M PRN IV Hypoglycemia 03/06/20 21:30 06/04/20 21:29 Dextrose (Dextrose 50%) 50 ml Q30M PRN IV Hypoglycemia 03/06/20 21:30 06/04/20 21:29 Diltiazem HCl (Cardizem ER) 180 mg DAILY ORAL 03/08/20 09:00 04/07/20 08:59 03/15/20 08:49 Diphenhydramine HCl (Benadryl) 25 mg Q6H PRN ORAL Itching/Pruritis 03/06/20 21:30 04/05/20 21:29 Donepezil HCl (Aricept) 10 mg QHS ORAL 03/07/20 21:00 04/06/20 20:59 03/14/20 21:51 Enoxaparin Sodium (Lovenox) 40 mg QHS SUBQ 03/12/20 21:00 06/10/20 20:59 03/14/20 21:56 Lisinopril (ZestriL) 10 mg DAILY ORAL 03/08/20 09:00 04/07/20 08:59 03/15/20 08:49 Ondansetron HCl (Zofran) 4 mg Q6H PRN IVP Nausea & Vomiting 03/06/20 21:30 04/05/20 21:29 Assessment/Plan Assessment/Plan ASSESSMENT COVID 19 PNA Acute hypoxemic respiratory failure due to COVID 19 PNA -resolved Gram positive bacteremia -likely contaminant Possible UTI Hx of HTN Dementia PLAN OF CARE tele isolation Date of sx onset: few days prior to presentation to ED on 03/07 Positive test: 03/07 rapid COVID 19 +, 03/07 COVID by PCR NGT O2 RA HFA s/p REM x 5 days ( 03/07 - 03/11 ) Dex Day# 9 ( 03/07 - ) DVT PPX: Lovenox D dimer 1.56 Trend CRP 17.9-> 4.2 -3.2 CXR 03/09 Bilateral pulmonary opacities abx per ID recs, BCX + Staph epidermidis, prob contaminant ; repeated BCX 03/09 NGTD , completed abx 03/13 ECHO with pEF 60, + echogenic material on post MV, likely calcification monitor volumes and renal function Fup with consultants recs FC discuss GOC stable for dc today home, pulse ox stable on RA , no SOB, no resp distress case discussed and evaluated by supervising physician Luly Koo NP Mar 15, 2020 12:36 Janes Oliva MD Mar 15, 2020 17:18
--- NOTE | 2020-03-19 11:43 | Discharge Summary ---
Discharge Summary Discharge Summary _ DATE OF ADMISSION: 03/06/2020 DATE OF DISCHARGE:03/15/2020 DISCHARGED BY: REASON FOR ADMISSION: 84 years old female with past medical history of hypertension, hyperlipidemia, dementia presented from home with shortness of breath for the past few days. Upon evaluation in emergency department patient required supplemental oxygen 6 L via nasal cannula with saturation 92%. Rapid COVID-19 was positive. Chest x-ray demonstrated peripherally distributed interstitial infiltrates with concerning for multifocal pneumonia , particularly viral pneumonia. Patient subsequently admitted to telemetry floor for further management. CONSULTANTS: neurologist Dr. Pascual pulmonary Dr Oliva ID specialist surgery Dr. Graf [facility] COURSE: Patient admitted to isolation room. Patient was provided with supplemental oxygen titrated to keep oximetry above 92% . Albuterol MDI provided as needed. P atient received remdesivir for 5 days and dexamethasone for 10 days. DVT prophylaxis with Lovenox provided. Patient was followed-up with chest x-ray. Patient started on antibiotic as per ID recommendation. Blood culture revealed Staph epidermidis, likely contaminant; repeated blood cultures were negative. Patient completed antibiotics while in the hospital. Echocardiogram revealed preserved ejection fraction .No evidence of vegetation on echocardiogram. Volumes and renal parameters were closely monitored. As patient clinically improved , she was able to be weaned to nasal cannula and then to room air. CRP from 17.9 down to 3.2. Swallow evaluation was done . Diet texture provided as per speech therapist recommendation with aspiration precautions. On admission patient was noted to have elevated LFT, likely due to Covid infection . LFTs were trending down and prior to discharge stable. Elevated LFT were most likely due to Covid infection. Neurologist seen patient for altered mental status . Acute encephalopathy was most likely due to Covid . Patient was slowly progressing, delirium precaution initially were maintained. Mental status returned to baseline as patient improved. Patient was working with physical therapist. Patient clinically stabilized and was ready for discharge home with home health services to follow. FINAL DIAGNOSES: COVID pneumonia Acute hypoxemic respiratory failure due to COVUD pneumonia -resolved Acute encephalopathy due to COVID Gram-positive bacteremia, likely contaminant Hypertension Dementia Dysphagia Elevated LFT DISCHARGE MEDICATIONS: See Medication Reconciliation list. DISCHARGE INSTRUCTIONS: Patient was discharged home with home health services. Follow up with primary care provider in one week. I have been assigned to dictate discharge summary for this account. Luly Koo NP Mar 19, 2020 11:43
== END 2020-03-15 14:23 | disposition home or self-care (01) | DRG 177 ==
LOC: EDBD 15:01 → EMR 15:15 → EDBEDREQ 16:59 → 4E 18:00 → EDBEDREQ 20:40 → 2E 23:32
DX: U07.1 COVID-19 (principal); J96.01 Acute respiratory failure with hypoxia; J12.82 Pneumonia due to coronavirus disease 2019; G93.40 Encephalopathy, unspecified; F03.90 Unspecified dementia, unspecified severity, without behavioral disturbance, psychotic disturbance, mood disturbance, and anxiety; Z88.0 Allergy status to penicillin; I10 Essential (primary) hypertension; R13.10 Dysphagia, unspecified
CPT/HCPCS: 36415; 71045; 80048; 80053; 80076; 80202; 81003; 82248; 82550; 82553; 82728; 83010; 83540; 83550; 83605; 83615; 83735; 84100; 84443; 84484; 85007; 85025; 85044; 85060; 85379; 85610; 85730; 86140; 87040; 87181; 93005; 93306; 96361; 96374; 99291; J3490; J7030; J8499; U0002